=== PATIENT | male | born 1945 | race Caucasian/White ===

== ENCOUNTER → 2021-05-24 10:02 | Outpatient (CLI) | payer MEDICARE, SELFPAY ==
--- NOTE | ~2021-05-24 | XR_ITS ---
EXAMINATION: XR shoulder LT min 2V DATE: 05/24/2021 10:30 INDICATION: Left shoulder pain. TECHNIQUE: 4 views of left shoulder were obtained. COMPARISON: None. FINDINGS: Bone alignment is normal. No fracture. Glenohumeral joint is normal. There is severe acromi oclavicular joint osteoarthritis. IMPRESSION: 1. Severe acromioclavicular joint osteoarthritis. Reviewed, dictated and finalized at location A.
== END ==
PROVIDERS: PCP Family Medicine; Visit Provider Physician Assistant
DX: M19.012 Primary osteoarthritis, left shoulder (principal)
CPT/HCPCS: 73030

== ENCOUNTER 2021-07-10 09:27 | Outpatient (CLI) | payer MEDICARE, SELFPAY ==
--- NOTE | ~2021-07-10 | XR_ITS ---
EXAMINATION: XR ribs RT 2V w CXR 2V INDICATION: Pleurodynia, right chest pain TECHNIQUE: Frontal and lateral views of the chest and 3 views of the right ribs were obtained. COMPARISON: None. FINDINGS: A calcified nodule of the right upper lobe is consistent with old granulomatous disease. Th e lungs are free of acute opacities. There is no pleural effusion or pneumothorax. The cardiomediasti nal silhouette is normal. There is moderate thoracic spondylosis. There are questionable nondisplaced fractures at the anterior aspects of the right ninth and 10th ribs. IMPRESSION: 1. Possible nondisplaced anterior right rib fractures. No acute cardiopulmonary abnormality. Reviewed, dictated and finalized at location A. 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
== END 2021-07-10 09:28 | disposition home or self-care (01) ==
LOC: ANHIMG 09:32
PROVIDERS: PCP Family Medicine; Visit Provider Family Medicine
DX: R07.81 Pleurodynia (principal)
CPT/HCPCS: 71046; 71100

== ENCOUNTER 2021-09-11 01:05 | Day surgery (SDC) | payer MEDICARE, SELFPAY ==
[2021-09-03 10:10] VITALS: BMI 24.3
[2021-09-11 10:08] VITALS: BP 126/67; PULSE 62; RESP 18; TEMP 35.7; O2SAT 99
--- NOTE | 2021-09-11 10:14 | WPDANESEPPF ---
Anes - Initial Pre Proc Eval Procedure: Operation Date: 09/11/21 11:15 Proposed Procedures p Screening Colonoscopy - Arvind Marie MD Date/Time: 09/11/21 10:14 Surgeon: Arvind Marie MD Pre Op Diagnosis: neoplasm screening Patient Data Age: 76 Gender: M Height: 1.78 m Weight: 75.9 kg Last Vital Signs Temp 96.3 F L 09/11/21 10:08 Pulse 62 09/11/21 10:08 Resp 18 09/11/21 10:08 BP 126/67 09/11/21 10:08 Pulse Ox 99 09/11/21 10:08 Allergies Allergy/AdvReac Type Severity Reaction Status Date / Time lisinopril Allergy Intermediate cough Verified 09/11/21 10:07 Home Medications Medication Instructions Recorded Confirmed Type aspirin 81 mg tablet,delayed 81 mg PO DAILY 07/29/19 09/03/21 History release atorvastatin 10 mg tablet See Rx Instructions .ROUTE 08/17/21 09/03/21 Rx .COMPLEX #90 tablet losartan 50 mg tablet See Rx Instructions .ROUTE 08/17/21 09/03/21 Rx .COMPLEX #90 tablet paroxetine HCl 10 mg tablet See Rx Instructions .ROUTE 08/17/21 09/03/21 Rx .COMPLEX #90 tablet Beet Root Complex 1 cap PO DAILY 09/03/21 09/03/21 History Vitamin D2 1 cap PO DAILY 09/03/21 09/03/21 History ascorbate calcium (vitamin C) 500 mg PO BID 09/03/21 09/03/21 History coenzyme Q10 [Co Q-10] 100 mg PO DAILY 09/03/21 09/03/21 History multivitamin,mu-kudn-Uc-FA-min 1 tablet PO DAILY 09/03/21 09/03/21 History [Multivitamin And Mineral] omega-3 fatty acids-vitamin E 1 cap PO DAILY 09/03/21 09/03/21 History [Fish Oil] vitamin B complex 1 cap PO DAILY 09/03/21 09/03/21 History Patient hx anesthesia problems: none Family hx anesthesia problems: none Results Review: All pre-operative results and documents have been reviewed as part of the pre-operative evaluation. [facility]LY [facility] Past Medical History Medical History Hepatitis C antibody test negative (~07/2017) Onychomycosis Osteoarthritis of right knee Torn medial meniscus (~2015) Family History Family History Sibling Family history of sudden , Onset Age: 52 Other Family history of elevated blood lipids Hypertension Social History Social History Smoking status: Never smoker Alcohol intake: current Drinks per week: 7 Alcohol use details: BEERS Substance use: never Substance use type: does not use Living arrangements: with family Spiritual care concerns: No Anes - Eval Final PreProcedure Day of Procedure 09/11/21 10:14 Patient weight: normal Heart: regular rate and rhythm Lungs: clear to auscultation Airway: Mallampati scale class II Neurological: alert and oriented Last oral intake: >/= 8 hours ASA classification: II Emergent: no Anesthetic plan: proceed Anesthesia type and monitoring: general GIVS and standard monitoring Results Review: All pre-operative results and documents have been reviewed as part of the pre-operative evaluation. Informed Consent: The patient's anesthetic plan and its attendant risks and benefits were discussed with the patient/family/POA. Questions were solicited and answers provided to the satisfaction of the patient/family/POA.
--- NOTE | 2021-09-11 10:21 | WPDGICN ---
Assessment and Plan Assessment and plan (1) Encounter for screening colonoscopy: Code(s): Z12.11 - Encounter for screening for malignant neoplasm of colon Status: Acute Assessment and Plan: Patient presents for screening colonoscopy. He appears to be at average risk for colon polyps. GI Consult Note Consult date/time: 09/11/21 10:21 HPI: Luca Cleveland is a 76 year old male Presents for screening colonoscopy. Patient reports his current weight appetite and bowel movements are normal. He denies abdominal pain. He has had no bleeding. Last colonoscopy 10 years ago was unremarkable. Family history is noncontributory. Review of Systems Review of Systems: All systems reviewed & are unremarkable except as noted in HPI and below PMFSH Past Medical History Medical History Hepatitis C antibody test negative (~07/2017) Onychomycosis Osteoarthritis of right knee Torn medial meniscus (~2015) Family History Family History Sibling Family history of sudden , Onset Age: 52 Other Family history of elevated blood lipids Hypertension Social History Social History Smoking status: Never smoker Alcohol intake: current Drinks per week: 7 Alcohol use details: CHANO Substance use: never Substance use type: does not use Living arrangements: with family Spiritual care concerns: No Meds Home Medications and Allergies Home Medications Medication Instructions Recorded Confirmed Type aspirin 81 mg tablet,delayed 81 mg PO DAILY 07/29/19 09/03/21 History release atorvastatin 10 mg tablet See Rx Instructions .ROUTE 08/17/21 09/03/21 Rx .COMPLEX #90 tablet losartan 50 mg tablet See Rx Instructions .ROUTE 08/17/21 09/03/21 Rx .COMPLEX #90 tablet paroxetine HCl 10 mg tablet See Rx Instructions .ROUTE 08/17/21 09/03/21 Rx .COMPLEX #90 tablet Beet Root Complex 1 cap PO DAILY 09/03/21 09/03/21 History Vitamin D2 1 cap PO DAILY 09/03/21 09/03/21 History ascorbate calcium (vitamin C) 500 mg PO BID 09/03/21 09/03/21 History coenzyme Q10 [Co Q-10] 100 mg PO DAILY 09/03/21 09/03/21 History multivitamin,uu-wuxk-Cb-FA-min 1 tablet PO DAILY 09/03/21 09/03/21 History [Multivitamin And Mineral] omega-3 fatty acids-vitamin E 1 cap PO DAILY 09/03/21 09/03/21 History [Fish Oil] vitamin B complex 1 cap PO DAILY 09/03/21 09/03/21 History Allergies Allergy/AdvReac Type Severity Reaction Status Date / Time lisinopril Allergy Intermediate cough Verified 09/11/21 10:07 Vital Signs Vital Signs - 24 hr 09/11/21 10:08 Temperature 96.3 F L Pulse Rate 62 Respiratory Rate 18 Blood Pressure 126/67 Pulse Oximetry 99 Exam Narrative: Physical exam reveals patient be alert. Vital signs stable. HEENT exam is unremarkable. Patient is anicteric. Lungs are clear to auscultation and percussion. Heart is without murmur or extra sounds. Abdominal exam bowel sounds are present soft nontender with no organomegaly. Digital external rectal exam is normal.
[2021-09-11] MEDS: LACTATED RINGERS 1,000 ML 150 ML IV CONT (10:22)
[2021-09-11 11:17] VITALS: BP 98/54; PULSE 61; RESP 18; O2SAT 95
[2021-09-11 11:27] VITALS: BP 104/66; PULSE 59; RESP 17; O2SAT 99
[2021-09-11 11:38] VITALS: BP 136/79; PULSE 58; RESP 18; O2SAT 98
== END 2021-09-11 12:05 | disposition home or self-care (01) ==
PROVIDERS: PCP Family Medicine; Visit Provider Internal Medicine Gastroenterology
PROC: 0DJD8ZZ Inspection of Lower Intestinal Tract, Via Natural or Artificial Opening Endoscopic (ICD-10-PCS; CPT 45378; principal; 2021-09-11 11:15)
DX: Z12.11 Encounter for screening for malignant neoplasm of colon (principal); D12.8 Benign neoplasm of rectum; K64.8 Other hemorrhoids; K57.30 Diverticulosis of large intestine without perforation or abscess without bleeding; B35.1 Tinea unguium; Z79.82 Long term (current) use of aspirin
CPT/HCPCS: 45385; 88305; J2704; J7120

== ENCOUNTER 2022-07-09 10:11 | Emergency (ER) | payer MEDICARE, SELFPAY ==
[2022-07-09 10:56] VITALS: BP 142/73; PULSE 60; RESP 18; TEMP 36.1; O2SAT 98
--- NOTE | 2022-07-09 11:30 | ED.URI ---
HPI - URI/Sore Throat General Chief Complaint: Upper Respiratory Infection Stated Complaint: throat irritation,cough Time Seen by Provider: 07/09/22 11:30 Source: patient Mode of arrival: ambulatory Limitations: no limitations History of Present Illness HPI Narrative: 76-year-old male presents with complaint of nasal congestion, postnasal drainage, cough, sinus headaches for 2 weeks. Reports yesterday he could not stop coughing due to tickle in his throat. I have told him he needed to be seen for sinus infection. taking NyQuil at night. Not taking any other medications to treat symptoms. All systems reviewed and negative except as noted above. Related Data Home Medications Medication Instructions Recorded Confirmed aspirin 81 mg tablet,delayed 81 mg PO DAILY 07/29/19 07/09/22 release Beet Root Complex 1 cap PO DAILY 09/03/21 07/09/22 Vitamin D2 1 cap PO DAILY 09/03/21 07/09/22 ascorbate calcium (vitamin C) 500 500 mg PO BID 09/03/21 07/09/22 mg capsule coenzyme Q10 100 mg capsule (Co 100 mg PO DAILY 09/03/21 07/09/22 Q-10) multivitamin,ex-gerf-Bt-FA-min 1 tablet PO DAILY 09/03/21 07/09/22 omega-3 fatty acids-vitamin E 1 cap PO DAILY 09/03/21 07/09/22 1,000 mg capsule vitamin B complex 1 cap PO DAILY 09/03/21 07/09/22 Allergies Allergy/AdvReac Type Severity Reaction Status Date / Time lisinopril AdvReac Intermediate cough Verified 07/09/22 10:54 Review of Systems Review of Systems: CONSTITUTIONAL: Denies fever, chills, or sweats. EYES: Denies visual changes, redness, or discharge. ENT: Reports rhinorrhea, congestion, sore throat, sinus headache. Denies otalgia. CARDIOVASCULAR: Denies chest pain, palpitations, or edema. RESPIRATORY: Denies cough or dyspnea. GASTROINTESTINAL: Denies abdominal pain, nausea, vomiting, or diarrhea. GENITOURINARY: Denies dysuria or hematuria. SKIN: Denies rash or itching. MUSCULOSKELETAL: Denies back pain, joint pain, or myalgia. NEUROLOGIC: Denies headache, numbness, or weakness. PSYCHIATRIC: Denies anxiety or depression. All other systems reviewed are negative, except as documented in HPI. PMFSH Past Medical History Medical History Abnormal electrocardiogram during exercise stress test Hepatitis C antibody test negative (~07/2017) Old tear of medial meniscus of right knee Onychomycosis Osteoarthritis of right knee Torn medial meniscus (~2015) Surgical History Surgical History History of knee surgery Family History Family History Sibling Family history of sudden , Onset Age: 52 Other Family history of elevated blood lipids Hypertension Social History Social History Smoking status: Never smoker Alcohol intake: current Drinks per week: 7 Alcohol use details: BEERS Substance use: never Substance use type: does not use Lack of Transportation: No Lack of Food: Never True Current Housing: I Have Housing Concerned About Future Housing: No Difficulty Paying Gas/Electric Bills: No Difficulty Paying for Meds: No Currently Unemployed: No Education: Master's Degree or Higher Difficulty w/ Childcare or Family Care: No Spiritual care concerns: No Comments At time of signature, agree with nursing past medical, surgical, social and family history. There is no relevant family history pertinent to the presenting complaint. Exam Narrative: GENERAL: This is a well-nourished, well-developed patient, in no apparent distress. HEAD: normocephalic, atraumatic. EYES: PERRL. Sclera clear/white. Vision is grossly intact. EARS: External ears normal, auditory canals clear and without drainage, Mild fluid bilateral TMs without erythema. NOSE: External nose normal With clear nasal drainage, erythem
== END 2022-07-09 11:42 | disposition home or self-care (01) ==
PROVIDERS: Emergency Provider Nurse Practitioner Family; PCP Family Medicine
DX: J01.90 Acute sinusitis, unspecified (principal); M17.11 Unilateral primary osteoarthritis, right knee; Z79.82 Long term (current) use of aspirin
CPT/HCPCS: 99213; G0463

== ENCOUNTER 2022-08-01 16:51 | Emergency (ER) | payer MEDICARE, SELFPAY ==
--- NOTE | ~2022-08-01 | XR_ITS ---
EXAMINATION: XR chest 1V portable DATE: 08/01/2022 17:31 INDICATION: Hypertension. Headache. TECHNIQUE: A single frontal view of the chest was obtained on 2 radiographs. COMPARISON: Chest radiograph 07/10/2021 FINDINGS: A calcified right lung nodule and calcified right hilar lymph nodes are consistent with old granulomatous disease. No pleural effusion or pneumothorax. The heart size is normal. IMPRESSION: 1. No acute cardiopulmonary disease. Reviewed, dictated and finalized at location A. 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
--- NOTE | ~2022-08-01 | CT_ITS ---
EXAMINATION: CT brain wo con DATE: 08/01/2022 17:13 INDICATION: Speech deficit. Headache. TECHNIQUE: Computed tomography (CT) of the head was performed without intravenous contrast. The mA wa s adjusted according to patient size. Iterative reconstruction technique was employed. The dose-lengt h product was 605.33 mGy-cm. COMPARISON: None FINDINGS: There is an old lacunar infarct in right caudate nucleus. There is no intracranial hemorrha ge, acute infarction, or abnormal intracranial mass lesion. The ventricles are normal in size. The or bits are normal. There is mild mucosal thickening in the paranasal sinuses. The mastoid air cells are normal. IMPRESSION: 1. Old lacunar infarct in right caudate nucleus. I called this result to Dr. Judge. Reviewed, dictated and finalized at location A. 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 Old lacunar infarct in right caudate nucleus. I called this result to Dr. Reilly ching
[2022-08-01 17:03] VITALS: BP 171/96; PULSE 59; RESP 16; TEMP 37; O2SAT 100
--- NOTE | 2022-08-01 17:06 | ECG_ITS ---
Measurements Intervals Wisner Rate: 59 P: -7 AK: 190 QRS: -11 QRSD: 112 T: 50 QT: 397 QTc: 396 Interpretive Statements SINUS BRADYCARDIA MODERATE INTRAVENTRICULAR CONDUCTION DELAY [110+ ms QRS DURATION] ABNORMAL ECG NO PREVIOUS ECG AVAILABLE FOR COMPARISON Electronically Signed On 08-02-2022 14:43:57 HOUSE COORDINATOR by Israel Haines M.D.
--- NOTE | 2022-08-01 17:09 | PC.NURSE ---
Pts blood sugar was [address]
[2022-08-01 17:10] LABS: Glucose Point of Care 124 mg/dl (65-105)
--- NOTE | 2022-08-01 17:11 | PC.NURSE ---
Pt to CT scan following stroke stop in ED, at bedside.
[2022-08-01 17:22] VITALS: BP 175/94; PULSE 60; RESP 17; TEMP 37; O2SAT 100
[2022-08-01 17:23] VITALS: PULSE 59
[2022-08-01 17:34] LABS: Basophils Percent Auto 0.3 % (0.2-1.2); Eosinophils Absolute Auto 0.1 K/mm3 (0-0.3); Eosinophils Percent Auto 1.5 % (0-4.4); Hematocrit 43.2 % (42.0-52.0); Hemoglobin 14.5 g/dL (14.0-18.0); Immature Granulocyte Absolute 0.03 K/mm3 (0.00-0.031); Immature Granulocyte Percent A 0.5 % (0-0.5); Lymphocytes Absolute Auto 1.42 K/mm3 (0.9-3.2); Lymphocytes Percent Auto 21.7 % (18.3-44.2); Mean Corpuscular HGB Conc 33.6 g/dl (32-36); Mean Corpuscular Hemoglobin 32.5 pg (26-34); Mean Corpuscular Volume 96.9 fl (80-100); Mean Platelet Volume 9.9 fl (7.4-10.4); Monocytes Absolute Auto 0.6 K/mm3 (0.1-0.6); Monocytes Percent Auto 9.6 % (2.6-8.5); Neutrophils Absolute Auto 4.3 K/mm3 (1.3-6.7); Neutrophils Percent Auto 66.4 % (45.5-73.1); Platelet Count Result 156 k/mm3 (150-375); Red Blood Count 4.46 M/mm3 (4.6-6.20); Red Cell Distribution Width 12.6 % (11.5-14.5); White Blood Count 6.5 K/mm3 (4.5-10.0)
[2022-08-01 17:44] LABS: INR 1.1; Partial Thromboplastin Time 25.3 SECONDS (22.3-36.8); Prothrombin Time 13.4 Seconds (11.1-14.7)
[2022-08-01 17:46] LABS: Alanine Aminotransferase 35 U/L (6-50); Albumin Level 4.3 g/dL (3.5-5.1); Alkaline Phosphatase 81 U/L (38-126); Anion Gap 5 mmol/L (8-16); Aspartate Amino Transferase 36 U/L (17-59); Bilirubin,Total 0.5 mg/dL (0.2-1.3); Blood Urea Nitrogen 14 mg/dL (9-20); Calcium 8.9 mg/dL (8.4-10.2); Carbon Dioxide 30 mmol/L (22-30); Chloride 100 mmol/L (98-107); Estimated CRCL calculation 64 ml/min; Estimated Glomerular Filt Rate > 60; Glucose 114 mg/dL (65-110); Sodium 135 mmol/L (137-145)
[2022-08-01 18:04] LABS: Troponin I < 0.012 ng/mL (0.000-0.034)
[2022-08-01 18:11] LABS: Influenza A QL RT-PCR Negative (Negative); Influenza B QL RT-PCR Negative (Negative); RSV RNA, RT-PCR Negative (Negative); SARS-CoV-2 RNA PCR Negative
[2022-08-01 18:20] VITALS: PULSE 61; RESP 18; O2SAT 98
--- NOTE | 2022-08-01 18:38 | ED.GENADULT ---
HPI - General Adult General Chief complaint: Neuro Symptoms/Deficit Stated complaint: SILEVRIO,HESITENT SPEECH,MEMORY ISSUES TODAY Time Seen by Provider: 08/01/22 17:10 History of Present Illness HPI narrative: this is a 77-year-old male presenting to the ED with a brief period of confusion. Patient was feeling well up until approximately noon today when he said he was having some trouble remembering things. He then took a nap and when he woke up his thought that he was more confused than normal. She is a nurse practitioner and then performed a thorough neurologic exam that had no findings other than he was unable to count backwards from 100 by sevens. There are no focal findings. The patient himself is complaining of a headache, nausea and fatigue. He is vaccinated against COVID and flu. He denies sick contacts at home. He denies chest pain, difficulty breathing, abdominal pain, urinary symptoms or diarrhea. The patient was originally triaged as a stroke alert. Symptoms are not consistent with stroke. Related Data Home Medications Medication Instructions Recorded Confirmed aspirin 81 mg tablet,delayed 81 mg PO DAILY 07/29/19 07/16/22 release Beet Root Complex 1 cap PO DAILY 09/03/21 07/16/22 Vitamin D2 1 cap PO DAILY 09/03/21 07/16/22 ascorbate calcium (vitamin C) 500 500 mg PO BID 09/03/21 07/16/22 mg capsule coenzyme Q10 100 mg capsule (Co 100 mg PO DAILY 09/03/21 07/16/22 Q-10) multivitamin,cx-jikz-Wq-FA-min 1 tablet PO DAILY 09/03/21 07/16/22 omega-3 fatty acids-vitamin E 1 cap PO DAILY 09/03/21 07/16/22 1,000 mg capsule vitamin B complex 1 cap PO DAILY 09/03/21 07/16/22 Allergies Allergy/AdvReac Type Severity Reaction Status Date / Time lisinopril AdvReac Intermediate cough Verified 08/01/22 17:09 Review of Systems Review of Systems: CONSTITUTIONAL: Denies night sweats. EYES: No eye pain ENT: Denies rhinorrhea CARDIOVASCULAR: Denies palpitations RESPIRATORY: Denies hemoptysis GASTROINTESTINAL: Denies hematemesis GENITOURINARY: Denies hematuria. SKIN: Denies rash MUSCULOSKELETAL: Denies myalgia. NEUROLOGIC: Denies weakness. PSYCHIATRIC: Denies delusions PMFSH Past Medical History Medical History Abnormal electrocardiogram during exercise stress test Hepatitis C antibody test negative (~07/2017) Old tear of medial meniscus of right knee Onychomycosis Osteoarthritis of right knee Torn medial meniscus (~2015) Surgical History Surgical History History of knee surgery Family History Family History Sibling Family history of sudden , Onset Age: 52 Other Family history of elevated blood lipids Hypertension Social History Social History Smoking status: Never smoker Alcohol intake: current Drinks per week: 7 Alcohol use details: BEERS Substance use: never Substance use type: does not use Lack of Transportation: No Lack of Food: Never True Current Housing: I Have Housing Concerned About Future Housing: No Difficulty Paying Gas/Electric Bills: No Difficulty Paying for Meds: No Currently Unemployed: No Education: Master's Degree or Higher Difficulty w/ Childcare or Family Care: No Spiritual care concerns: No Exam Narrative: APPEARANCE: No apparent distress. Head: atraumatic. tympanic membranes are non visualized due to cerumen impaction EYES: EOMI, NOSE: Atraumatic NECK: Trachea midline RESPIRATORY: No increased rate of breathing, clear to auscultation in all parmar CARDIOVASCULAR: RRR, no peripheral edema ABDOMINAL: Non-distended, soft tender no guarding or rebound MUSCULOSKELETAl: No obvious deformities NEURO: Alert. Cranial nerves 2-12 grossly intact. Sensation light touch, motor function cerebellar functio
[2022-08-01] MEDS: IBUPROFEN 400 MG TABLET 800 MG PO (18:49)
[2022-08-01 18:51] VITALS: PULSE 71; RESP 18; O2SAT 100
== END 2022-08-01 19:17 | disposition home or self-care (01) ==
PROVIDERS: Emergency Provider Emergency Medicine; PCP Family Medicine
DX: B34.9 Viral infection, unspecified (principal); Z20.822 Contact with and (suspected) exposure to COVID-19; R53.83 Other fatigue; M17.11 Unilateral primary osteoarthritis, right knee
CPT/HCPCS: 36415; 70450; 71045; 80053; 82948; 84484; 85025; 85610; 85730; 87637; 93005; 99284; A9270

== ENCOUNTER 2022-11-19 11:22 | Outpatient (CLI) | payer MEDICARE, SELFPAY ==
[2022-11-23 06:10] LABS: Lyme Disease Ab (IgM), Blot Negative (Negative); Lyme Disease Ab(IgG), Blot Negative (Negative)
== END 2022-11-19 11:23 | disposition home or self-care (01) ==
LOC: ANHGOSHLAB 11:23
PROVIDERS: PCP Family Medicine; Visit Provider Nurse Practitioner Family
DX: T14.8XXA Other injury of unspecified body region, initial encounter (principal); W57.XXXA Bitten or stung by nonvenomous insect and other nonvenomous arthropods, initial encounter
CPT/HCPCS: 36415; 86617; 86757

== ENCOUNTER 2024-02-05 13:58 | Emergency (ER) | payer MEDICARE, SELFPAY ==
--- NOTE | 2024-02-05 14:06 | ED.URI ---
HPI - URI/Sore Throat General Chief Complaint: Upper Respiratory Infection Stated Complaint: cold symptoms Time Seen by Provider: 02/05/24 14:13 Source: patient, RN notes reviewed and old records reviewed Mode of arrival: ambulatory Limitations: no limitations History of Present Illness HPI Narrative: 78-year-old male presents to the [facility] with sinus congestion ear pain that started slightly on Friday, became worse Friday and Friday. Reports that he felt very lethargic on Friday and Friday, reports a fever of 102. Denies any chest pain, shortness of breath or cough. Related Data Home Medications Medication Instructions Recorded Confirmed aspirin 81 mg tablet,delayed 81 mg PO DAILY 07/29/19 02/05/24 release Beet Root Complex 1 cap PO DAILY 09/03/21 02/05/24 multivitamin,kp-ahir-Lq-FA-min 1 tablet PO DAILY 09/03/21 02/05/24 vitamin B complex 1 cap PO DAILY 09/03/21 10/13/23 metformin 1,000 mg tablet 1,000 mg PO DAILY 10/13/23 02/05/24 Allergies Allergy/AdvReac Type Severity Reaction Status Date / Time lisinopril AdvReac Intermediate cough Verified 10/13/23 13:08 Review of Systems Review of Systems: All systems reviewed & are unremarkable except as noted in HPI and below Constitutional: Constitutional: Reports no additional constitutional complaints Eyes: Eyes: Reports no additional eye complaints ENT: Reports as per HPI Cardiovascular: Cardiovascular: Reports no additional cardiovascular complaints, Denies chest pain and Denies dyspnea Respiratory: Respiratory: Reports no additional respiratory complaints, Denies chest congestion, Denies cough and Denies dyspnea Gastrointestinal: Gastrointestinal: Reports no additional gastrointestinal complaints, Denies abdominal pain, Denies nausea and Denies vomiting Musculoskeletal: Musculoskeletal: Reports no additional musculoskeletal complaints Integumentary/Breasts: Skin/Breast: Reports system reviewed and no additional complaints, except as docu Neurologic: Reports system reviewed and no additional complaints, except as documented Psychiatric: Psychiatric: Reports no additional psychiatric complaints Allergic/Immunologic: Allergic/Immunologic: Reports no additional allergic/immunologic complaints [facility] Past Medical History Medical History Abnormal electrocardiogram during exercise stress test Hepatitis C antibody test negative (~07/2017) Lacunar infarction Old tear of medial meniscus of right knee Onychomycosis Osteoarthritis of right knee Torn medial meniscus (~2016) Surgical History Surgical History History of knee surgery Family History Family History Sibling Family history of sudden , Onset Age: 52 Other Family history of elevated blood lipids Hypertension Social History Social History Smoking status: Never smoker Alcohol intake: current Drinks per week: 7 Alcohol use details: BEERS Substance use: never Substance use type: does not use Lack of Transportation: No Lack of Food: Never True Current Housing: I Have Housing Concerned About Future Housing: No Difficulty Paying Gas/Electric Bills: No Difficulty Paying for Meds: No Currently Unemployed: No Education: Master's Degree or Higher Difficulty w/ Childcare or Family Care: No Living arrangements: with family Spiritual care concerns: No Comments At the time of my signature, I reviewed and agree with the nursing past medical, surgical, social, and family history. There is no relevant family history pertinent to the patient complaint. Exam Const: General: cooperative, healthy appearing, comfortable, no acute distress, well developed, alert and well nourished Nutritional Appearance: well nourished Orientation/c
[2024-02-05 14:07] VITALS: BP 118/63; PULSE 63; RESP 16; TEMP 36.6; O2SAT 97
[2024-02-05 16:36] LABS: EDINFLUASCREEN Negative; EDINFLUBSCREEN Negative
== END 2024-02-05 14:26 | disposition home or self-care (01) ==
PROVIDERS: Emergency Provider Nurse Practitioner; PCP Family Medicine
DX: U07.1 COVID-19 (principal); Z79.82 Long term (current) use of aspirin; M17.11 Unilateral primary osteoarthritis, right knee; Z86.73 Personal history of transient ischemic attack (TIA), and cerebral infarction without residual deficits
CPT/HCPCS: 87426; 87804; 99213; G0463

== ENCOUNTER 2024-07-13 11:38 | Inpatient (IN) | payer MEDICARE, SELFPAY ==
[2024-07-13] VITALS (55 sets, daily range): BP systolic 90–143; BP diastolic 42–76; PULSE 48–63; RESP 10–25; TEMP 36.4–36.7; O2SAT 95–100; BMI 25.1
--- NOTE | 2024-07-13 | ECHO_ITS ---
Patient Info Name: Luca Cleveland Age: 79 years : 1945 Gender: Male Ht: 69 in Wt: 170 lbs BSA: 1.95 m2 HR: 50 bpm BP: 135 / 68 mmHg Technical Quality: Poor Exam Date: 07/13/2024 3:35 PM Exam Location: Echo Lab Patient Status: Inpatient Admit Date: 07/13/2024 Staff Ordering Physician: Jamie Russ MD (min/hal) Road Grader: Carl Phillip RDCS Attending Provider: Vidal Silva MD Referring Physician: Jeb INIGUEZ; Exam Type: CA echo doppler color flow Study Info Indications - NSTEMI Complete two-dimensional, color flow and Doppler transthoracic echocardiogram is performed with contrast to opacify the left ventricle and to improve the deliniation of the left ventricle endocardial borders. Contrast/Agitated Saline Contrast/Ag. Saline: Definity Amount: 2.00 ml Existing IV Access: Yes Reason for Poor Study: poor echocardiographic windows Summary 1. Left ventricular chamber dimension is normal. 2. There is mildly increased left ventricular wall thickness. 3. Left ventricular systolic function is mildly reduced with an ejection fraction by Biplane Method of Discs of 50 %. 4. Mild hypokinesis seen in the mid-distal ant-septal, ant-lat segments. 5. There is moderate aortic valve sclerosis. 6. There is mild aortic valve stenosis with a peak velocity of 175 cm/s, mean gradient of 8 mmHg, and aortic valve area of 1.5 cm2. 7. There is no aortic valve regurgitation. 8. Right ventricular chamber dimension is normal. 9. Right ventricular systolic function is normal. 10. There is mild mitral valve regurgitation. Left Ventricle Left ventricular chamber dimension is normal. There is mildly increased left ventricular wall thickness. Left ventricular systolic function is mildly reduced with an ejection fraction by Biplane Method of Discs of 50 %. Mild hypokinesis seen in the mid-distal ant-septal, ant-lat segments. Right Ventricle Right ventricular chamber dimension is normal. Right ventricular systolic function is normal. Left Atria Left atrial chamber dimension is mildly enlarged. Right Atria Right atrial chamber dimension is normal. Aortic Valve There is moderate aortic valve sclerosis. There is mild aortic valve stenosis with a peak velocity of 175 cm/s, mean gradient of 8 mmHg, and aortic valve area of 1.5 cm2. There is no aortic valve regurgitation. Pulmonic Valve There is mild pulmonic regurgitation. Mitral Valve There is mild mitral valve regurgitation. Tricuspid Valve There is mild tricuspid valve regurgitation. Inferior Vena Cava Inferior vena cava is not well visualized. Aorta The aortic root size at the sinus of Valsalva is normal. The prox ascending aorta size is normal. The ascending aorta arch size is normal. Left Ventricular Outflow Tract Name Value Normal LVOT 2D LVOT Diameter 2.0 cm LVOT Doppler LVOT Peak Gradient 3 mmHg LVOT Mean Gradient 2 mmHg LVOT VTI 22 cm LVOT VTI/AV VTI Ratio 0.5 LVOT Stroke Volume 67 ml LVOT CO 3.6 l/min LVOT CI 1.8 l/min/m2 Pulmonic Valve Name Value Normal RVOT Doppler RVOT Peak Gradient 1 mmHg PV Doppler PV Peak Gradient 2 mmHg Mitral Valve Name Value Normal MV Doppler MV Peak Gradient 4 mmHg MV Mean Gradient 1 mmHg MV Decel Lares 458 cm/s2 MV PHT 50 ms MV Area (PHT) 4.4 cm2 4.0-5.0 MV Area (Cont Eq VTI) 2.0 cm2 MV Diastolic Function MV E Peak Velocity 79 cm/s MV A Peak Velocity 69 cm/s MV E/A 1.1 MV Decel Time 172 ms MV Annular TDI MV E/e' (Septal) 9.0 <=8.0 MV E/e' (Lateral) 8.0 <=8.0 MV E/e' (Average) 8.5 Tricuspid Valve Name Value Normal TV Regurgitation Doppler TR Peak Velocity 266 cm/s TR Peak Gradient 25 mmHg Estimated PAP/RSVP RA Pressure 10 mmHg <=5 PA Systolic Pressure 38 mmHg <36 RV Systolic Pressure 38 mmHg <36 Aorta Name Value Normal Ascending Aorta Ao Root Diameter (MM) 3.3 cm Ao Root Diam Index (MM) 1.7 cm/m2 Aortic Valve Name Value Normal AV Doppler AV Peak Velocity 175 cm/s AV Peak Gradient 12 mmHg AV Mean Gradient 8 mmHg AV VTI 44 cm AV Area (Cont Eq VTI) 1.5 cm2 >=3.0 AV Area (Cont Eq Mauricio) 1.6 cm2 AV Regurgitation 2D LVOT Area 3.0 cm2 Ventricles Name Value Normal LV Dimensions 2D/MM IVS Diastolic Thickness (2D) 1.4 cm 0.6-1.0 LVID Diastole (2D) 3.7 cm 4.2-5.8 LVIW Diastolic Thickness (2D) 1.0 cm 0.6-1.0 LVID Systole (2D) 2.7 cm 2.5-4.0 LVOT Diameter 2.0 cm LV Mass (2D Cubed) 155.27 g 88.00-224.00 LV Mass Index (2D Cubed) 80 g/m2 49-115 Relative Wall Thickness (2D) 0.54 LV Fractional Shortening/Ejection Fraction 2D/MM LV Fractional Shortening (2D) 29 % 25-43 LV EF (2D Teicholz) 56 % 52-72 LV Diastolic Volume (4C MOD) 158 ml LV EF (4C MOD) 48 % LV Diastolic Volume (2C MOD) 143 ml LV EF (2C MOD) 51 % LV Diastolic Volume (BP MOD) 154 ml 62-150 LV Diastolic Volume Index (BP MOD) 79 ml/m2 34-74 LV Systolic Volume (BP MOD) 77 ml 21-61 LV Systolic Volume Index (BP MOD) 40 ml/m2 11-31 LV EF (BP MOD) 50 % 52-72 LV Diastolic Length (4C) 9.0 cm LV Systolic Length (4C) 8.1 cm LV Stroke Volume (4C MOD) 76 ml Atria Name Value Normal LA Dimensions LA Dimension (MM) 4.5 cm 3.0-4.1 LA Volume (4C A-L) 60 ml LA Volume (BP A-L) 71 ml RA Dimensions RA Area (4C) 17.0 cm2 <=18.0 Report Signatures
--- NOTE | ~2024-07-13 | XR_ITS ---
XR chest 2V Ordering provider: Loly Kaye MD History: 78 years Male with . chest pain, CHEST PRESSURE, INDIGESTION . Comparison: August 01, 2022 FINDINGS: MEDIASTINUM: The cardiac silhouette is not enlarged. LUNGS: No infiltrates, effusions or pneumothorax. OTHER: No free air under the diaphragm. IMPRESSION: No acute cardiopulmonary pathology. Reviewed, dictated and finalized at location A. TED CIRCUIT DESIGNER
--- NOTE | 2024-07-13 11:42 | ECG_ITS ---
Test Date: 2024-07-13 11:49:53 Measurements Intervals [place] Rate: 49 P: 46 MI: 208 QRS: -15 QRSD: 102 T: 92 QT: 425 QTc: 386 Interpretive Statements SINUS BRADYCARDIA NONSPECIFIC ST & T-WAVE ABNORMALITY No previous ECG available for comparison Electronically Signed On 07-13-2024 15:01:14 POWER MULE OPERATOR by Jamie Russ M.D.
[2024-07-13 12:05] LABS: Basophils Percent Auto 0.4 % (0.2-1.2); Eosinophils Absolute Auto 0.2 K/mm3 (0-0.3); Hematocrit 38.7 % (42.0-52.0); Hemoglobin 12.9 g/dL (14.0-18.0); Immature Granulocyte Absolute 0.02 K/mm3 (0.00-0.031); Immature Granulocyte Percent A 0.4 % (0-0.5); Lymphocytes Absolute Auto 1.39 K/mm3 (0.9-3.2); Lymphocytes Percent Auto 26.2 % (18.3-44.2); Mean Corpuscular HGB Conc 33.3 g/dl (32-36); Mean Corpuscular Hemoglobin 32.8 pg (26-34); Mean Corpuscular Volume 98.5 fl (80-100); Mean Platelet Volume 10.2 fl (7.4-10.4); Monocytes Absolute Auto 0.6 K/mm3 (0.1-0.6); Monocytes Percent Auto 10.4 % (2.6-8.5); Neutrophils Absolute Auto 3.2 K/mm3 (1.3-6.7); Neutrophils Percent Auto 59.6 % (45.5-73.1); Platelet Count Result 142 k/mm3 (150-375); Red Blood Count 3.93 M/mm3 (4.6-6.20); Red Cell Distribution Width 12.5 % (11.5-14.5); White Blood Count 5.3 K/mm3 (4.5-10.0)
[2024-07-13 12:18] LABS: Alanine Aminotransferase 23 U/L (6-50); Albumin Level 3.8 g/dL (3.5-5.1); Alkaline Phosphatase 64 U/L (38-126); Anion Gap 1 mmol/L (4-12); Aspartate Amino Transferase 33 U/L (17-59); Bilirubin,Total 0.6 mg/dL (0.2-1.3); Blood Urea Nitrogen 21 mg/dL (9-20); Calcium 8.8 mg/dL (8.4-10.2); Carbon Dioxide 30 mmol/L (22-30); Chloride 108 mmol/L (98-107); Estimated CRCL calculation 56 ml/min; Estimated Glomerular Filt Rate > 60; Glucose 105 mg/dL (65-110); INR 1.2; Lipase 97 U/L (23-300); Potassium 4.2 mmol/L (3.4-5.0); Sodium 139 mmol/L (137-145)
[2024-07-13 12:19] LABS: Partial Thromboplastin Time 24.4 Seconds (22.3-36.8)
[2024-07-13 12:30] LABS: Troponin I 0.239 ng/mL (0.000-0.034)
[2024-07-13] MEDS: HEPARIN SODIUM 5,000 UNITS/ML VIAL 4000 UNITS IV PUSH ×2 (13:32→21:03)
[2024-07-13] MEDS: HEPARIN SOD/D5W 100 UNITS/ML 25,000 UNITS/250 ML BAG 9 UNITS IV CONT (13:33)
[2024-07-13] MEDS: ASPIRIN 81 MG CHEWABLE TABLET 324 MG PO (13:38)
--- NOTE | 2024-07-13 13:58 | ED_ITS ---
HPI - Chest Pain General Chief Complaint: Chest Pain Stated Complaint: chest pain Time Seen by Provider: 07/13/24 12:54 History of Present Illness HPI narrative: patient states he went to the gym as usual yesterday and was on the treadmill when he started having some chest pain and shortness of breath, he stopped, the symptoms stopped, he tried again and the symptoms restarted. Later that night he went to [employer] and then felt a sensation like he was going to collapse. he also felt like he was having lot of gas and burped several times. This morning he finally told his about the symptoms he was having and she brought him to the hospital. He has no chest pain currently. Has no cardiac history though he does see Dr Haines Related Data Home Medications ?Medication ?Instructions ?Recorded ?Confirmed ?Last Taken ?Type aspirin 81 mg tablet,delayed 81 mg PO DAILY 07/29/19 04/16/24 Unknown History release Beet Root Complex 1 cap PO DAILY 09/03/21 04/16/24 Unknown History multivitamin,zz-pnso-Kl-FA-min 1 tablet PO DAILY 09/03/21 04/16/24 Unknown History vitamin B complex 1 cap PO DAILY 09/03/21 04/16/24 Unknown History metformin 1,000 mg tablet 1,000 mg PO DAILY 10/13/23 04/16/24 Unknown History Allergies Allergy/AdvReac Type Severity Reaction Status Date / Time lisinopril AdvReac Intermediate cough Verified 04/16/24 13:20 Review of Systems 2 Review of Systems: All systems reviewed & are unremarkable except as noted in HPI and below PMFSH Past Medical History Medical History Abnormal electrocardiogram during exercise stress test Hepatitis C antibody test negative (~07/2017) Lacunar infarction Old tear of medial meniscus of right knee Onychomycosis Osteoarthritis of right knee Torn medial meniscus (~2015) Surgical History Surgical History History of knee surgery Family History Family History Sibling Family history of sudden , Onset Age: 52 Other Family history of elevated blood lipids Hypertension Social History Social History (Reviewed 04/16/24 @ 13:22 by ZACHERY Palm Smoking status: Never smoker Alcohol intake: current Drinks per week: 7 Alcohol use details: BEERS Substance use: never Substance use type: does not use Lack of Transportation: No Lack of Food: Never True Current Housing: I Have Housing Concerned About Future Housing: No Difficulty Paying Gas/Electric Bills: No Difficulty Paying for Meds: No Currently Unemployed: No Education: Master's Degree or Higher Difficulty w/ Childcare or Family Care: No Living arrangements: with family Spiritual care concerns: No Exam 2 Narrative: EXAMINATION OF ORGAN SYSTEMS/BODY AREAS: Constitutional: Vital signs per nursing GENERAL:[No acute distress, non-toxic appearing.] HEAD: Normal with no signs of head trauma. EYES: EOMI, conjunctiva normal ENT: Hearing grossly intact LUNGS: Nonlabored breathing. HEART: [Regular rate and rhythm] ABD: [Soft], [nontender to palpation] EXT: Normal range of motion SKIN: [No rashes or lesions.] NEURO: [Alert and oriented x 3. No gross focal sensory or strength deficits.] PSYCH: Normal affect Course Vital Signs Vital signs: Vital Signs Temperature 97.6 F 07/13/24 11:41 Pulse Rate 54 L 07/13/24 11:41 Respiratory Rate 16 07/13/24 11:41 Blood Pressure 126/53 L 07/13/24 11:41 Pulse Oximetry 100 07/13/24 11:41 Oxygen Delivery Room Air 07/13/24 11:41 Temperature 97.6 F 07/13/24 11:41 Pulse Rate 51 L 07/13/24 13:25 Respiratory Rate 19 07/13/24 13:25 Blood Pressure 139/65 07/13/24 13:25 Pulse Oximetry 100 07/13/24 13:25 Oxygen Delivery Room Air 07/13/24 13:25 MDM - Chest Pain MDM Narrative Medical decision making narrative: ED COURSE AND MEDICAL DECISION MAKINM presenting with exertional chest pain. Cardiac workup is initiated. EKG: Performed in triage and interpreted by me. Normal sinus rhythm. Rate [49]. Normal axis. PA normal. QRS duration normal. QTc normal. 7 very minimal elevation T AVR with very subtle ST depressions diffusely, not STEMI criteria however is slightly concerning for possible ischemia on my independent interpretation. Initial troponin also elevated at 0.239. Patient is denying any chest pain currently and he looks very well on exam, I do not feel he needs to go immediately to laboratory engineer at this time, however will given full-dose aspirin, start heparin drip, discussed case with airport utility worker, who advises NPO at midnight for possible procedure in the morning. discussed with hospitalist, and pt and who are agreeable with plan. Lab Data 07/13/24 11:56 07/13/24 11:56 Labs: Lab Results 07/13/24 Range/Units 11:56 WBC 5.3 (4.5-10.0) K/mm3 RBC 3.93 L (4.6-6.20) M/mm3 Hgb 12.9 L (14.0-18.0) g/dL Hct 38.7 L (42.0-52.0) % MCV 98.5 (80-100) fl MCH 32.8 (26-34) pg MCHC 33.3 (32-36) g/dl RDW 12.5 (11.5-14.5) % Plt Count 142 L (150-375) k/mm3 MPV 10.2 (7.4-10.4) fl Immature Gran % (Auto) 0.4 (0-0.5) % Neut % (Auto) 59.6 (45.5-73.1) % Lymph % (Auto) 26.2 (18.3-44.2) % [place] % (Auto) 10.4 H (2.6-8.5) % Eos % (Auto) 3.0 (0-4.4) % Baso % (Auto) 0.4 (0.2-1.2) % Lymph # (Auto) 1.39 (0.9-3.2) K/mm3 [place] # (Auto) 0.6 (0.1-0.6) K/mm3 Eos # (Auto) 0.2 (0-0.3) K/mm3 Baso # (Auto) 0.0 (0.0-0.1) K/mm3 Abs Immat Gran (auto) 0.02 (0.00-0.031) K/mm3 Absolute Neuts (auto) 3.2 (1.3-6.7) K/mm3 Absolute Nucleated RBC 0.000 (0.0-0.012) K/mm3 Nucleated RBC % 0.0 (0.0-0.2) % PT 15.0 H (11.1-14.7) Seconds INR 1.2 APTT 24.4 (22.3-36.8) Seconds Sodium 139 (137-145) mmol/L Potassium 4.2 (3.4-5.0) mmol/L Chloride 108 H (98-107) mmol/L Carbon Dioxide 30 (22-30) mmol/L Anion Gap 1 L (4-12) mmol/L BUN 21 H (9-20) mg/dL Creatinine 1.00 (0.7-1.3) mg/dL Estim Creat Clear Calc 56 ml/min Estimated GFR > 60 (59 - ) Glucose 105 (65-110) mg/dL Calcium 8.8 (8.4-10.2) mg/dL Total Bilirubin 0.6 (0.2-1.3) mg/dL AST 33 (17-59) U/L ALT 23 (6-50) U/L Alkaline Phosphatase 64 (38-126) U/L Troponin I 0.239 H* (0.000-0.034) ng/mL Total Protein 6.0 L (6.3-8.2) g/dL Albumin 3.8 (3.5-5.1) g/dL Lipase 97 (23-300) U/L Discharge Plan Discharge Clinical Impression: Acute non-ST elevation myocardial infarction (NSTEMI) Patient Disposition: Still a Patient Condition: Serious Patient Language: Peruvian Prescriptions: No Action aspirin 81 mg tablet,delayed release (DR/EC) 81 mg PO DAILY metformin 1,000 mg tablet 1,000 mg PO DAILY vitamin B complex Capsule 1 cap PO DAILY Multivitamin And Mineral Tablet 1 tablet PO DAILY Beet Root Complex 1 cap PO DAILY paroxetine HCl 10 mg tablet See Rx Instructions .ROUTE .COMPLEX Qty: 90 1RF Dose Instruction: TAKE 1 TABLET BY MOUTH DAILY Rx Instructions: TAKE 1 TABLET BY MOUTH DAILY meloxicam 15 mg tablet 15 mg PO DAILY PRN (Reason: arthritis) Qty: 90 1RF losartan 50 mg tablet See Rx Instructions .ROUTE .COMPLEX Qty: 90 1RF Dose Instruction: TAKE 1 TABLET BY MOUTH DAILY Rx Instructions: TAKE 1 TABLET BY MOUTH DAILY atorvastatin 10 mg tablet See Rx Instructions .ROUTE .COMPLEX Qty: 90 1RF Dose Instruction: TAKE 1 TABLET BY MOUTH DAILY Rx Instructions: TAKE 1 TABLET BY MOUTH DAILY Follow-up/Referrals: Israel Castillo MD [Primary Care Provider] -
--- NOTE | 2024-07-13 14:45 | PM.IMHP ---
H&P: HPI History of Present Illness Date/Time: 07/13/24 14:45 Chief Complaint: Chest discomfort. Narrative: This is a very pleasant 78-year-old male with prediabetes, hypertension, and hyperlipidemia presented to the emergency department via private vehicle for evaluation of chest discomfort. The patient provides the following history. He lives a very active lifestyle and exercises daily. On Friday while at the gym he developed what he initially describes as bloating discomfort, extending from the umbilicus up into the shoulders bilaterally. It seemed to occur only with activity and resolved with belching and rest. Over the course of the next couple of days he has had recurrent symptoms with exertion, once again better with breast. Associated symptoms include perhaps mild shortness of breath. He denies nausea, vomiting, sweats, syncope, and near syncope. He has occasional GERD symptoms for which he will take Tums but this is not at all similar. He has no known history of cardiac disease but did have a negative stress test done several years ago after an EKG showed ?abnormal Q-waves.? At the time my evaluation he is resting comfortably and has no discomfort. In the ED: Vital signs were stable on arrival. Labs were significant for WBC count of 6.3, hemoglobin 13.2, platelet 147, BUN 21, creatinine 1.00, troponin 0.239. EKG showed sinus rhythm with subtle ST depressions. He was given aspirin 324 mg and has been started on heparin drip. Cardiology has been consulted he will be admitted to the IMU for close monitoring. Review of Systems Review of Systems: 12 systems were reviewed. No recent cold or flu symptoms. No syncope or near syncope. He denies pleuritic pain and palpitations. No edema or calf pain. No melena hematochezia. Except as documented, all other systems were reviewed and are negative. [facility] Past Medical History Medical History (Updated 07/13/24 @ 14:59 by Nanette Bolden PA-C) Mixed hyperlipidemia Prediabetes Hypertension Lacunar infarction Abnormal electrocardiogram during exercise stress test Osteoarthritis of right knee Surgical History Surgical History (Updated 07/13/24 @ 14:59 by Nanette Bolden PA-C) History of meniscectomy of right knee Family History Family History Sibling Family history of sudden , Onset Age: 52 Other Family history of elevated blood lipids Hypertension Social History Social History (Updated 07/13/24 @ 14:52 by Nanette Bolden PA-C) Social History: Surrogated medical decision maker: Dagmar Cleveland, spouse. Code status: Full code. Smoking status: Never smoker Tobacco type: cigars Second hand tobacco smoke exposure: Yes Alcohol intake: current Drinks per week: 7 Substance use: never Substance use type: does not use Lack of Transportation: No Lack of Food: Never True Current Housing: I Have Housing Concerned About Future Housing: No Difficulty Paying Gas/Electric Bills: No Difficulty Paying for Meds: No Currently Unemployed: No Education: Master's Degree or Higher Difficulty w/ Childcare or Family Care: No Living arrangements: with family Additional living arrangements comments: Lives with in [place]. 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 Spiritual care concerns: No Meds Home Medications and Allergies Home Medications ?Medication ?Instructions ?Recorded ?Confirmed ?Type aspirin 81 mg tablet,delayed 81 mg PO DAILY 07/29/19 04/16/24 History release Beet Root Complex 1 cap PO DAILY 09/03/21 04/16/24 History multivitamin,gk-bobc-Be-FA-min 1 tablet PO DAILY 09/03/21 04/16/24 History vitamin B complex 1 cap PO DAILY 09/03/21 04/16/24 History metformin 1,000 mg tablet 1,000 mg PO DAILY 10/13/23 04/16/24 History paroxetine HCl 10 mg tablet See Rx Instructions .Route 03/03/24 04/16/24 Rx .COMPLEX #90 tabs meloxicam 15 mg tablet 15 mg PO DAILY PRN arthritis #90 04/29/24 Rx tabs losartan 50 mg tablet See Rx Instructions .Route 05/14/24 Rx .COMPLEX #90 tabs atorvastatin 10 mg tablet See Rx Instructions .Route 06/07/24 Rx .COMPLEX #90 tabs ascorbic acid (vitamin C) 500 mg 500 mg PO .bedtime 07/13/24 07/13/24 History tablet (C-500) calcium 333 mg-vit D3 133 1 tablet PO DAILY 07/13/24 07/13/24 History unit-magnesium 133 mg-zinc 5 mg tablet (Cristóbal Mag Zinc Plus D3) cholecalciferol (vitamin D3) 25 1,000 unit PO DAILY 07/13/24 07/13/24 History mcg (1,000 unit) capsule (Vitamin D3) coQ10 (ubiquinol) 100 mg capsule 100 mg PO .evening 07/13/24 07/13/24 History famotidine 10 mg tablet (Acid 10 mg PO DAILY PRN reflux 07/13/24 07/13/24 History Controller) melatonin 3 mg capsule 3 mg PO .bedtime 07/13/24 07/13/24 History Allergies Allergy/AdvReac Type Severity Reaction Status Date / Time lisinopril AdvReac Intermediate cough Verified 07/13/24 15:00 Vital Signs Vital Signs - 24 hr 07/13/24 11:41 07/13/24 13:13 07/13/24 13:15 Temperature 97.6 F Pulse Rate 54 L 51 L 51 L Respiratory Rate 16 20 14 Blood Pressure 126/53 L 139/65 Pulse Oximetry 100 99 100 Oxygen Delivery Room Air 07/13/24 13:25 07/13/24 13:25 07/13/24 13:31 Temperature Pulse Rate 51 L 56 L Respiratory Rate 19 23 H Blood Pressure 139/65 Pulse Oximetry 100 100 Oxygen Delivery Room Air Room Air 07/13/24 13:45 07/13/24 13:46 07/13/24 14:00 Temperature Pulse Rate 50 L 48 L 49 L Respiratory Rate 10 L 17 21 H Blood Pressure 139/72 142/68 H Pulse Oximetry 100 100 100 Oxygen Delivery 07/13/24 14:01 07/13/24 14:15 07/13/24 14:16 Temperature Pulse Rate 50 L 52 L 50 L Respiratory Rate 19 14 17 Blood Pressure 139/75 Pulse Oximetry 99 100 100 Oxygen Delivery 07/13/24 14:30 07/13/24 14:31 Temperature Pulse Rate 50 L 51 L Respiratory Rate 18 19 Blood Pressure 135/68 Pulse Oximetry 97 100 Oxygen Delivery H&P: Results Labs Labs: Short CBC 07/13/24 Range/Units 11:56 WBC 5.3 (4.5-10.0) K/mm3 Hgb 12.9 L (14.0-18.0) g/dL Hct 38.7 L (42.0-52.0) % Plt Count 142 L (150-375) k/mm3 BMP 07/13/24 11:56 Sodium 139 Potassium 4.2 Chloride 108 H Carbon Dioxide 30 BUN 21 H Creatinine 1.00 Glucose 105 Calcium 8.8 Cardiac Enzymes 07/13/24 Range/Units 11:56 Troponin I 0.239 H* (0.000-0.034) ng/mL Liver Function 07/13/24 Range/Units 11:56 Total Bilirubin 0.6 (0.2-1.3) mg/dL AST 33 (17-59) U/L ALT 23 (6-50) U/L Alkaline Phosphatase 64 (38-126) U/L Albumin 3.8 (3.5-5.1) g/dL Imaging Chest X-Ray 07/13/24 12:45 IMPRESSION: No acute cardiopulmonary pathology. Assessment and Plan Assessment and plan (1) Acute non-ST elevation myocardial infarction (NSTEMI): Code(s): I21.4 - Non-ST elevation (NSTEMI) myocardial infarction Status: Acute (2) Hypertension: Code(s): I10 - Essential (primary) hypertension Status: Acute (3) Hyperlipidemia: Code(s): E78.5 - Hyperlipidemia, unspecified Status: Acute (4) Prediabetes: Code(s): R73.03 - Prediabetes Status: Acute Plan The patient presented to the emergency department for evaluation of chest discomfort as detailed in HPI. Labs, imaging, EKG, and all reports were personally reviewed. He presents with exertional angina for couple of days. Initial troponin was a bit elevated and EKG shows subtle ST depressions. He was given aspirin 324 mg and has been started on a heparin drip. He will be NPO after midnight for probable cardiac catheterization tomorrow. Dr. Russ was consulted by the ED physician her input is greatly appreciated. Vital signs were reviewed and they are stable. His home medications will be reviewed and resumed as appropriate. Findings and treatment plan were discussed with the patient and his . Questions were solicited and answered to satisfaction. The patient's medical management will be taken over by the hospitalist team in a.m. Quality VTE Prophylaxis VTE prophylaxis: pharmacologic ordered (on heparin drip) Hospitalist MIPS Advance Care Plan I have confirmed that the patient's Advanced Care Plan is present, code status is documented, or surrogate decision maker is listed in patient medical record.: Yes Medication Reconciliation The patient is not eligible for med reconciliation; the patient is in a emergent medical situation where delaying treatment would jeopardize the patients health.: Yes
[2024-07-13 14:48] LABS: Basophils Percent Auto 0.5 % (0.2-1.2); Eosinophils Absolute Auto 0.2 K/mm3 (0-0.3); Hematocrit 38.4 % (42.0-52.0); Hemoglobin 13.2 g/dL (14.0-18.0); Immature Granulocyte Absolute 0.03 K/mm3 (0.00-0.031); Immature Granulocyte Percent A 0.5 % (0-0.5); Lymphocytes Absolute Auto 1.73 K/mm3 (0.9-3.2); Lymphocytes Percent Auto 27.5 % (18.3-44.2); Mean Corpuscular HGB Conc 34.4 g/dl (32-36); Mean Corpuscular Hemoglobin 33.4 pg (26-34); Mean Corpuscular Volume 97.2 fl (80-100); Mean Platelet Volume 10.4 fl (7.4-10.4); Monocytes Absolute Auto 0.6 K/mm3 (0.1-0.6); Monocytes Percent Auto 9.5 % (2.6-8.5); Neutrophils Absolute Auto 3.7 K/mm3 (1.3-6.7); Platelet Count Result 147 k/mm3 (150-375); Red Blood Count 3.95 M/mm3 (4.6-6.20); Red Cell Distribution Width 12.5 % (11.5-14.5); White Blood Count 6.3 K/mm3 (4.5-10.0)
[2024-07-13 15:16] LABS: Troponin I 0.286 ng/mL (0.000-0.034)
[2024-07-13] MEDS: ATORVASTATIN 40 MG TABLET 80 MG PO (15:21)
--- NOTE | 2024-07-13 15:59 | P.CONCA_ITS ---
Assessment and Plan Assessment and plan (1) Acute non-ST elevation myocardial infarction (NSTEMI): Code(s): I21.4 - Non-ST elevation (NSTEMI) myocardial infarction Status: Acute Assessment and Plan: Recommend LHC. Discussed procedure with the patient, including indication for the procedure, procedure details, risk vs benefits. Patient agreeable. Will plan for LHC tomorrow morning. NPO at midnight. Continue Heparin drip. Continue ASA 81mg once daily. On Atorvastatin 10mg at home, will increase to 80mg. Will hold off on beta marbin due to resting heart rates in the 50s. Echocardiogram ordered and pending. (2) Hypertension: Code(s): I10 - Essential (primary) hypertension Status: Acute Assessment and Plan: Stable. Continue home Losartan. (3) Hyperlipidemia: Code(s): E78.5 - Hyperlipidemia, unspecified Status: Acute Assessment and Plan: On Atorvastatin 10mg at home, will increase to 80mg. Plan Recommendations and plan discussed with Hospitalist. History of Present Illness History of Present Illness Consult date/time: 07/13/24 15:59 Requesting physician: Loly Kaye MD Consult reason: chest pain Reason For Visit: NSTEMI Narrative: This is a 78 year old male patient of Dr. Haines's with hypertension, hyperlipidemia, prediabetes who presented with chest pain. Chest pain began yesterday while working out at the gym. Occurred about 4 minutes into doing elliptical. Improved with rest. He continued to work out, however, would get exertional chest pain that would improve with rest. Went on a walk in the evening yesterday where he had chest pain as well. This morning, he went to walk his dog outside, and just walking around [place], he developed chest pain. Workup here shows elevated troponin of 0.239, 0.286. EKG with sinus rhythm, mild ST depressions in diffuse leads. He is currently feeling well upon my evaluation and is chest pain free. Started on Heparin drip. Review of Systems 2 Review of Systems: All systems reviewed & are unremarkable except as noted in HPI and below (HPI) [facility] Past Medical History Medical History Mixed hyperlipidemia Prediabetes Hypertension Lacunar infarction Abnormal electrocardiogram during exercise stress test Osteoarthritis of right knee Surgical History Surgical History History of meniscectomy of right knee Family History Family History Sibling Family history of sudden , Onset Age: 52 Other Family history of elevated blood lipids Hypertension Social History Social History Social History: Surrogated medical decision maker: Dagmar Cleveland, spouse. Code status: Full code. Smoking status: Never smoker Tobacco type: cigars Second hand tobacco smoke exposure: Yes Alcohol intake: current Drinks per week: 7 Substance use: never Substance use type: does not use Lack of Transportation: No Lack of Food: Never True Current Housing: I Have Housing Concerned About Future Housing: No Difficulty Paying Gas/Electric Bills: No Difficulty Paying for Meds: No Currently Unemployed: No Education: Master's Degree or Higher Difficulty w/ Childcare or Family Care: No Living arrangements: with family Additional living arrangements comments: Lives with in [place]. 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 Spiritual care concerns: No Meds Home Medications and Allergies Home Medications ?Medication ?Instructions ?Recorded ?Confirmed ?Type aspirin 81 mg tablet,delayed 81 mg PO DAILY 07/29/19 07/13/24 History release Beet Root Complex 1 cap PO DAILY 09/03/21 07/13/24 History multivitamin,tc-hhob-Iw-FA-min 1 tablet PO DAILY 09/03/21 07/13/24 History vitamin B complex 1 cap PO DAILY 09/03/21 07/13/24 History metformin 1,000 mg tablet 1,000 mg PO DAILY 10/13/23 07/13/24 History paroxetine HCl 10 mg tablet See Rx Instructions .Route 03/03/24 07/13/24 Rx .COMPLEX #90 tabs meloxicam 15 mg tablet 15 mg PO DAILY PRN arthritis #90 04/29/24 07/13/24 Rx tabs losartan 50 mg tablet See Rx Instructions .Route 05/14/24 07/13/24 Rx .COMPLEX #90 tabs atorvastatin 10 mg tablet See Rx Instructions .Route 06/07/24 07/13/24 Rx .COMPLEX #90 tabs ascorbic acid (vitamin C) 500 mg 500 mg PO .bedtime 07/13/24 07/13/24 History tablet (C-500) calcium 333 mg-vit D3 133 1 tablet PO DAILY 07/13/24 07/13/24 History unit-magnesium 133 mg-zinc 5 mg tablet (Cristóbal Mag Zinc Plus D3) cholecalciferol (vitamin D3) 25 1,000 unit PO DAILY 07/13/24 07/13/24 History mcg (1,000 unit) capsule (Vitamin D3) coQ10 (ubiquinol) 100 mg capsule 100 mg PO .evening 07/13/24 07/13/24 History famotidine 10 mg tablet (Acid 10 mg PO DAILY PRN reflux 07/13/24 07/13/24 History Controller) melatonin 3 mg capsule 3 mg PO .bedtime 07/13/24 07/13/24 History Allergies Allergy/AdvReac Type Severity Reaction Status Date / Time lisinopril AdvReac Intermediate cough Verified 07/13/24 15:00 Vital Signs Vital Signs - 24 hr 07/13/24 11:41 07/13/24 13:13 07/13/24 13:15 Temperature 36.4 C Pulse Rate 54 L 51 L 51 L Respiratory Rate 16 20 14 Blood Pressure 126/53 L 139/65 Pulse Oximetry 100 99 100 Oxygen Delivery Room Air 07/13/24 13:25 07/13/24 13:25 07/13/24 13:31 Temperature Pulse Rate 51 L 56 L Respiratory Rate 19 23 H Blood Pressure 139/65 Pulse Oximetry 100 100 Oxygen Delivery Room Air Room Air 07/13/24 13:45 07/13/24 13:46 07/13/24 14:00 Temperature Pulse Rate 50 L 48 L 49 L Respiratory Rate 10 L 17 21 H Blood Pressure 139/72 142/68 H Pulse Oximetry 100 100 100 Oxygen Delivery 07/13/24 14:01 07/13/24 14:15 07/13/24 14:16 Temperature Pulse Rate 50 L 52 L 50 L Respiratory Rate 19 14 17 Blood Pressure 139/75 Pulse Oximetry 99 100 100 Oxygen Delivery 07/13/24 14:30 07/13/24 14:31 Temperature Pulse Rate 50 L 51 L Respiratory Rate 18 19 Blood Pressure 135/68 Pulse Oximetry 97 100 Oxygen Delivery Exam 2 Const: General: comfortable and no acute distress HENMT: Mouth: Yes moist mucous membranes Eyes: General: appearance normal, both eyes and all related structures S clera: sclerae normal Resp: Effort & Inspection: normal respiratory effort Cardio: Rate: regular rate Rhythm: regular rhythm Heart sounds: no murmurs Skin: General skin exam: normal color Neuro: Speech: normal speech Psych: Mental Status: mental status grossly normal Affect: normal affect Results Labs and Meds 07/13/24 14:39 12 11:56 Lab results: Cardiac Enzymes 07/13/24 07/13/24 Range/Units 11:56 14:39 AST 33 (17-59) U/L Troponin I 0.239 H* 0.286 H* (0.000-0.034) ng/mL Coagulation 07/13/24 Range/Units 11:56 PT 15.0 H (11.1-14.7) Seconds APTT 24.4 (22.3-36.8) Seconds CBC 07/13/24 07/13/24 Range/Units 11:56 14:39 WBC 5.3 6.3 (4.5-10.0) K/mm3 RBC 3.93 L 3.95 L (4.6-6.20) M/mm3 Hgb 12.9 L 13.2 L (14.0-18.0) g/dL Hct 38.7 L 38.4 L (42.0-52.0) % Plt Count 142 L 147 L (150-375) k/mm3 Lymph # (Auto) 1.39 1.73 (0.9-3.2) K/mm3 [place] # (Auto) 0.6 0.6 (0.1-0.6) K/mm3 Eos # (Auto) 0.2 0.2 (0-0.3) K/mm3 Baso # (Auto) 0.0 0.0 (0.0-0.1) K/mm3 Comprehensive Metabolic Panel 07/13/24 Range/Units 11:56 Sodium 139 (137-145) mmol/L Potassium 4.2 (3.4-5.0) mmol/L Chloride 108 H (98-107) mmol/L Carbon Dioxide 30 (22-30) mmol/L BUN 21 H (9-20) mg/dL Creatinine 1.00 (0.7-1.3) mg/dL Glucose 105 (65-110) mg/dL Calcium 8.8 (8.4-10.2) mg/dL AST 33 (17-59) U/L ALT 23 (6-50) U/L Alkaline Phosphatase 64 (38-126) U/L Total Protein 6.0 L (6.3-8.2) g/dL Albumin 3.8 (3.5-5.1) g/dL Patient Weight 07/13/24 23:59 Weight 77.3 kg
[2024-07-13] MEDS: PERFLUTREN LIPID MICROSPHERES 1.5 ML VIAL DILUTED TO 10 ML TOTAL VOLUME IV PUSH (16:05)
--- NOTE | 2024-07-13 16:17 | IVDEFINITY ---
Prior to administration of IV Definity the patient was educated on the risks and benefits of the imaging enhancing agent including potential adverse side effects. The patient verbalized understanding. Allergies were verified. No exclusion criteria were identified and at least one of the following inclusion criteria were met: 1) physician request, 2) patient technically difficult to image (per the [place] [employer] Echocardi[employer] guidelines of two or more segments not discernable within the apical view), or 3) questionable left ventricular function. ?
[2024-07-13 16:32] LABS: Cholesterol 142 mg/dL (0-200); HDL Direct 36 mg/dL; Triglycerides 62 mg/dL (<150)
[2024-07-13 16:43] LABS: LDL Cholesterol Direct 85 mg/dL
--- NOTE | 2024-07-13 17:44 | ECG_ITS ---
Test Date: 2024-07-13 18:39:53 Measurements Intervals [place] Rate: 57 P: 42 OR: 200 QRS: -16 QRSD: 109 T: 98 QT: 426 QTc: 416 Interpretive Statements SINUS BRADYCARDIA WITH OCCASIONAL VENTRICULAR PREMATURE COMPLEXES NONSPECIFIC ST & T-WAVE ABNORMALITY Compared to ECG 07/13/2024 11:49:53 Ventricular premature complex(es) now present T-wave abnormality still present Electronically Signed On 07-14-2024 11:48:44 [employer]PUT[employer] PROFESSIONAL by Steffen Fernandes
[2024-07-13 18:25] LABS: Hemoglobin A1C 5.8 % (<5.7)
[2024-07-13 18:33] LABS: Troponin I 0.314 ng/mL (0.000-0.034)
[2024-07-13 20:28] LABS: INR 1.1; Partial Thromboplastin Time 37.3 Seconds (22.3-36.8); Prothrombin Time 14.5 Seconds (11.1-14.7)
--- NOTE | 2024-07-13 21:55 | ADMGEN ---
This patient, Luca Cleveland, was admitted to Virtual [facility] IMU[facility]. Patient/family oriented to hospital policies and general routines including ID bracelet, bed and alarms, visiting hours, pain management, procedures, bathroom and other care routines, personal items, smoking policy, room service/diet, and visiting hours. Information on how to activate the Rapid Response Team has been discussed. Patient/Family are encouraged to report perceived risks to care and to ask questions if they do not understand what they are told or what they should do.
[2024-07-14] VITALS (26 sets, daily range): BP systolic 110–145; BP diastolic 52–72; PULSE 51–101; RESP 11–20; TEMP 36.5–36.8; O2SAT 94–100
[2024-07-14] MEDS: PARoxetine 10 MG TABLET BY MOUTH (00:25)
[2024-07-14] MEDS: ATORVASTATIN 10 MG TABLET BY MOUTH (00:25)
[2024-07-14] MEDS: LOSARTAN POTASSIUM 50 MG TABLET BY MOUTH (00:25)
[2024-07-14] MEDS: MELATONIN 3 MG TABLET PO (00:25)
[2024-07-14] MEDS: ACETAMINOPHEN 325 MG TABLET 650 MG PO (00:29)
[2024-07-14 03:05] LABS: Basophils Percent Auto 0.3 % (0.2-1.2); Eosinophils Absolute Auto 0.2 K/mm3 (0-0.3); Eosinophils Percent Auto 3.3 % (0-4.4); Hematocrit 36.5 % (42.0-52.0); Hemoglobin 12.7 g/dL (14.0-18.0); Immature Granulocyte Absolute 0.02 K/mm3 (0.00-0.031); Immature Granulocyte Percent A 0.3 % (0-0.5); Immature Platelet Fraction Pct 2.7 % (0.9-11.2); Lymphocytes Absolute Auto 1.99 K/mm3 (0.9-3.2); Lymphocytes Percent Auto 33.1 % (18.3-44.2); Mean Corpuscular HGB Conc 34.8 g/dl (32-36); Mean Corpuscular Hemoglobin 33.2 pg (26-34); Mean Corpuscular Volume 95.5 fl (80-100); Mean Platelet Volume 10.3 fl (7.4-10.4); Monocytes Absolute Auto 0.5 K/mm3 (0.1-0.6); Monocytes Percent Auto 8.1 % (2.6-8.5); Neutrophils Absolute Auto 3.3 K/mm3 (1.3-6.7); Neutrophils Percent Auto 54.9 % (45.5-73.1); Platelet Count Result 132 k/mm3 (150-375); Red Blood Count 3.82 M/mm3 (4.6-6.20); Red Cell Distribution Width 12.5 % (11.5-14.5)
[2024-07-14 03:15] LABS: Anion Gap 3 mmol/L (4-12); Blood Urea Nitrogen 20 mg/dL (9-20); Calcium 8.6 mg/dL (8.4-10.2); Carbon Dioxide 25 mmol/L (22-30); Chloride 110 mmol/L (98-107); Cholesterol 134 mg/dL (0-200); Estimated CRCL calculation 61 ml/min; Estimated Glomerular Filt Rate > 60; Glucose 97 mg/dL (65-110); HDL Direct 35 mg/dL; Magnesium 2.2 mg/dL (1.6-2.3); Potassium 3.9 mmol/L (3.4-5.0); Sodium 138 mmol/L (137-145); Triglycerides 76 mg/dL (<150)
[2024-07-14 03:19] LABS: INR 1.2; Prothrombin Time 15.1 Seconds (11.1-14.7)
[2024-07-14 03:20] LABS: Partial Thromboplastin Time 48.2 Seconds (22.3-36.8)
[2024-07-14 03:26] LABS: LDL Cholesterol Direct 73 mg/dL
[2024-07-14] MEDS: HEPARIN SODIUM 5,000 UNITS/ML VIAL 4000 UNITS IV PUSH (03:40)
[2024-07-14] MEDS: ATORVASTATIN 40 MG TABLET 80 MG PO (08:18)
[2024-07-14] MEDS: ASPIRIN 81 MG ENTERIC TABLET PO (08:18)
--- NOTE | 2024-07-14 09:11 | P.SEDATION_ITS ---
Moderate Sedation Note-Pt Data Patient Data Diagnosis: NSTEMI Present Complaint: 78 year old male patient of Dr. Haines's with hypertension, hyperlipidemia, prediabetes who presented with chest pain. Procedure to be performed/Plan: LEFT HEART CATHETERIZATION CORONARY ANGIOGRAPHY Allergies Allergy/AdvReac Type Severity Reaction Status Date / Time lisinopril AdvReac Intermediate cough Verified 07/13/24 15:00 Home Medications ?Medication ?Instructions ?Recorded ?Confirmed ?Type aspirin 81 mg tablet,delayed 81 mg PO DAILY 07/29/19 07/13/24 History release Beet Root Complex 1 cap PO DAILY 09/03/21 07/13/24 History multivitamin,ib-sxzn-Ig-FA-min 1 tablet PO DAILY 09/03/21 07/13/24 History vitamin B complex 1 cap PO DAILY 09/03/21 07/13/24 History metformin 1,000 mg tablet 1,000 mg PO DAILY 10/13/23 07/13/24 History paroxetine HCl 10 mg tablet See Rx Instructions .Route 03/03/24 07/13/24 Rx .COMPLEX #90 tabs meloxicam 15 mg tablet 15 mg PO DAILY PRN arthritis #90 04/29/24 07/13/24 Rx tabs losartan 50 mg tablet See Rx Instructions .Route 05/14/24 07/13/24 Rx .COMPLEX #90 tabs atorvastatin 10 mg tablet See Rx Instructions .Route 06/07/24 07/13/24 Rx .COMPLEX #90 tabs ascorbic acid (vitamin C) 500 mg 500 mg PO .bedtime 07/13/24 07/13/24 History tablet (C-500) calcium 333 mg-vit D3 133 1 tablet PO DAILY 07/13/24 07/13/24 History unit-magnesium 133 mg-zinc 5 mg tablet (Cristóbal Mag Zinc Plus D3) cholecalciferol (vitamin D3) 25 1,000 unit PO DAILY 07/13/24 07/13/24 History mcg (1,000 unit) capsule (Vitamin D3) coQ10 (ubiquinol) 100 mg capsule 100 mg PO .evening 07/13/24 07/13/24 History famotidine 10 mg tablet (Acid 10 mg PO DAILY PRN reflux 07/13/24 07/13/24 History Controller) melatonin 3 mg capsule 3 mg PO .bedtime 07/13/24 07/13/24 History Current Medications: Active Medications Acetaminophen (Acetaminophen 325 Mg Tablet) 650 mg PO Q6H PRN PRN Reason: Mild Pain (1-3) or Fever Last Admin: 07/14/24 00:29 Dose: 650 mg Aspirin (Aspirin 81 Mg Enteric Tablet) [facility] Last Admin: 07/14/24 08:18 Dose: 81 mg Atorvastatin Calcium (Atorvastatin 40 Mg Tablet) 80 mg PO DAILY [facility] Last Admin: 07/14/24 08:18 Dose: 80 mg Atorvastatin Calcium (Atorvastatin 10 Mg Tablet) 10 mg BY MOUTH [facility] Last Admin: 07/14/24 00:25 Dose: 10 mg Famotidine (Famotidine 10 Mg Tablet) 10 mg PO DAILY PRN PRN Reason: reflux Heparin Sodium (Porcine) (Heparin Sodium 5,000 Units/Ml Vial) 4,000 units IV PUSH PRN PRN PRN Reason: aPTT less than 55 seconds Last Admin: 07/14/24 03:40 Dose: 4,000 units Heparin Sodium (Porcine) (Heparin Sodium 5,000 Units/Ml Vial) 3,000 units IV PUSH PRN PRN PRN Reason: aPTT 55 - 70 seconds Heparin Sodium/Dextrose (Heparin Sodium/D5w 100 Units/Ml) 25,000 units in 250 mls @ 15 mls/hr IV CONT .[id number] [facility], [facility]; Protocol Last Titration: 07/14/24 03:42 Dose: 1,500 units/hr, 15 mls/hr Losartan Potassium (Losartan Potassium 50 Mg Tablet) 50 mg BY MOUTH [facility] Last Admin: 07/14/24 00:25 Dose: 50 mg Melatonin (Melatonin 3 Mg Tablet) 3 mg PO [facility] Last Admin: 07/14/24 00:25 Dose: 3 mg Morphine Sulfate (Morphine Sulfate (*Crx) 2 Mg/Ml Inj) 2 mg IV PUSH Q4H PRN PRN Reason: Pain Rated 7-10 Paroxetine HCl (Paroxetine 10 Mg Tablet) 10 mg BY MOUTH [facility] Last Admin: 07/14/24 00:25 Dose: 10 mg Sedation/Anesthesia: No previous sedation/anesthesia problems (including family history). [facility] Past Medical History Medical History Mixed hyperlipidemia Prediabetes Hypertension Lacunar infarction Abnormal electrocardiogram during exercise stress test Osteoarthritis of right knee Surgical History Surgical History History of meniscectomy of right knee Family History Family History Sibling Family history of sudden , Onset Age: 52 Other Family history of elevated blood lipids Hypertension Social History Social History Social History: Surrogated medical decision maker: Dagmar [place], spouse. Code status: Full code. Smoking status: Never smoker Tobacco type: cigars Second hand tobacco smoke exposure: Yes Alcohol intake: current Drinks per week: 7 Substance use: never Substance use type: does not use Do You Feel Safe in your Home?: Yes Lack of Transportation: No Lack of Food: Never True Current Housing: I Have Housing Concerned About Future Housing: No Difficulty Paying Gas/Electric Bills: No Difficulty Paying for Meds: No Currently Unemployed: No Education: Master's Degree or Higher Difficulty w/ Childcare or Family Care: No Living arrangements: with family Additional living arrangements comments: Lives with in [place]. 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 Spiritual care concerns: No Mod Sed Physical Exam Physical Exam Pre Procedural Exam: Normal: Appearance, Eyes, Ears, Nose, Neck, Throat, Airway, Lungs, Heart Size, Heart Rate, Heart Rhythm, Neuro Exam, Abdomen, Liver, Kidneys, Spleen, Breasts, Genitalia, Extremities and Skin Hours since solid foods: 12 Hours since liquid intake: 12 Mallampati Classification: class II Internal Medicine - PN: Obj Da Vital Signs Vital Signs: Vital Signs - 24 hr 07/13/24 11:41 07/13/24 13:13 07/13/24 13:15 Temperature 36.4 C Pulse Rate 54 L 51 L 51 L Respiratory Rate 16 20 14 Blood Pressure 126/53 L 139/65 Pulse Oximetry 100 99 100 Oxygen Delivery Room Air 07/13/24 13:25 07/13/24 13:25 07/13/24 13:31 Temperature Pulse Rate 51 L 56 L Respiratory Rate 19 23 H Blood Pressure 139/65 Pulse Oximetry 100 100 Oxygen Delivery Room Air Room Air 07/13/24 13:45 07/13/24 13:46 07/13/24 14:00 Temperature Pulse Rate 50 L 48 L 49 L Respiratory Rate 10 L 17 21 H Blood Pressure 139/72 142/68 H Pulse Oximetry 100 100 100 Oxygen Delivery 07/13/24 14:01 07/13/24 14:15 07/13/24 14:16 Temperature Pulse Rate 50 L 52 L 50 L Respiratory Rate 19 14 17 Blood Pressure 139/75 Pulse Oximetry 99 100 100 Oxygen Delivery 07/13/24 14:30 07/13/24 14:31 07/13/24 14:51 Temperature Pulse Rate 50 L 51 L 51 L Respiratory Rate 18 19 12 Blood Pressure 135/68 Pulse Oximetry 97 100 Oxygen Delivery 07/13/24 15:00 07/13/24 15:01 07/13/24 15:21 Temperature Pulse Rate 52 L 53 L 54 L Respiratory Rate 14 18 18 Blood Pressure 138/71 Pulse Oximetry 98 99 100 Oxygen Delivery 07/13/24 15:30 07/13/24 15:31 07/13/24 15:45 Temperature Pulse Rate 51 L 55 L 54 L Respiratory Rate 19 22 H 18 Blood Pressure 137/75 Pulse Oximetry 100 100 97 Oxygen Delivery 07/13/24 15:46 07/13/24 16:00 07/13/24 16:01 Temperature Pulse Rate 54 L 54 L 51 L Respiratory Rate 18 20 17 Blood Pressure 124/61 107/60 Pulse Oximetry 97 Oxygen Delivery 07/13/24 16:15 07/13/24 16:16 07/13/24 16:39 Temperature Pulse Rate 49 L 50 L 53 L Respiratory Rate 11 L 13 16 Blood Pressure 135/71 Pulse Oximetry 100 99 99 Oxygen Delivery 07/13/24 16:45 07/13/24 16:46 07/13/24 16:47 Temperature Pulse Rate 54 L 54 L 53 L Respiratory Rate 18 13 13 Blood Pressure 140/67 Pulse Oximetry 98 100 100 Oxygen Delivery 07/13/24 17:02 07/13/24 17:15 07/13/24 17:30 Temperature Pulse Rate 53 L 56 L 60 Respiratory Rate 20 20 19 Blood Pressure Pulse Oximetry 100 99 98 Oxygen Delivery 07/13/24 17:31 07/13/24 17:45 07/13/24 18:00 Temperature Pulse Rate 58 L 53 L 63 Respiratory Rate 19 21 H 15 Blood Pressure 143/76 H Pulse Oximetry 98 100 98 Oxygen Delivery 07/13/24 18:06 07/13/24 18:15 07/13/24 18:16 Temperature Pulse Rate 58 L 59 L 61 Respiratory Rate 18 16 19 Blood Pressure 90/42 L 112/51 L Pulse Oximetry 100 99 99 Oxygen Delivery 07/13/24 18:30 07/13/24 18:31 07/13/24 18:32 Temperature Pulse Rate 56 L 57 L 59 L Respiratory Rate 18 18 18 Blood Pressure 105/51 L Pulse Oximetry 100 100 99 Oxygen Delivery 07/13/24 18:45 07/13/24 19:00 07/13/24 19:01 Temperature Pulse Rate 61 59 L 56 L Respiratory Rate 13 23 H 17 Blood Pressure 117/57 L Pulse Oximetry 98 98 Oxygen Delivery 07/13/24 19:15 07/13/24 19:30 07/13/24 19:31 Temperature Pulse Rate 58 L 55 L 56 L Respiratory Rate 15 14 19 Blood Pressure 118/55 L Pulse Oximetry 98 96 97 Oxygen Delivery 07/13/24 20:05 07/13/24 20:15 07/13/24 20:34 Temperature Pulse Rate 56 L 55 L 56 L Respiratory Rate 11 L 20 22 H Blood Pressure Pulse Oximetry 99 98 96 Oxygen Delivery 07/13/24 20:45 07/13/24 21:01 07/13/24 21:19 Temperature Pulse Rate 57 L 57 L 54 L Respiratory Rate 25 H 17 15 Blood Pressure Pulse Oximetry 95 98 Oxygen Delivery 07/13/24 22:00 07/13/24 22:00 07/13/24 22:06 Temperature 36.7 C Pulse Rate 52 L 52 L 54 L Respiratory Rate 18 18 Blood Pressure 118/63 Pulse Oximetry 100 100 Oxygen Delivery Room Air 07/14/24 00:00 07/14/24 00:30 07/14/24 02:00 Temperature Pulse Rate 53 L 54 L 55 L Respiratory Rate 18 Blood Pressure Pulse Oximetry 100 Oxygen Delivery Room Air 07/14/24 04:00 07/14/24 04:00 07/14/24 04:15 Temperature 36.8 C Pulse Rate 53 L 58 L 55 L Respiratory Rate 16 18 Blood Pressure 110/65 Pulse Oximetry 98 100 Oxygen Delivery Room Air 07/14/24 06:00 07/14/24 08:11 Temperature 36.5 C Pulse Rate 52 L 100 Respiratory Rate 16 Blood Pressure 128/69 Pulse Oximetry 94 Oxygen Delivery Intake/Output Intake/Output: Intake & Output 12/08/24 07/12/24 07/13/24 07/14/24 23:59 23:59 23:59 23:59 Intake Total 67.5 79.8 Output Total 950 Balance -882.5 79.8 Meds/Results Medications: Active Medications Generic Name Dose Route Start Last Admin Trade Name Freq PRN Reason Stop Dose Admin Acetaminophen 650 mg 07/13/24 15:14 07/14/24 00:29 Acetaminophen 325 Mg Tablet PO 650 mg Q6H PRN Administration Mild Pain (1-3) or Fever Aspirin 81 mg 07/14/24 09:00 07/14/24 08:18 Aspirin 81 Mg Enteric Tablet PO 81 mg QAM VALARIE Administration Atorvastatin Calcium 80 mg 07/13/24 15:05 07/14/24 08:18 Atorvastatin 40 Mg Tablet PO 80 mg DAILY VALARIE Administration Atorvastatin Calcium 10 mg 07/13/24 23:20 07/14/24 00:25 Atorvastatin 10 Mg Tablet BY MOUTH 10 mg HS VALARIE Administration Famotidine 10 mg 07/13/24 23:18 Famotidine 10 Mg Tablet PO DAILY PRN reflux Heparin Sodium (Porcine) 4,000 units 07/13/24 12:54 07/14/24 03:40 Heparin Sodium 5,000 Units/Ml Vial IV PUSH 4,000 units PRN PRN Administration aPTT less than 55 seconds Heparin Sodium (Porcine) 3,000 units 07/13/24 12:54 Heparin Sodium 5,000 Units/Ml Vial IV PUSH PRN PRN aPTT 55 - 70 seconds Heparin Sodium/Dextrose 25,000 units in 250 mls @ 15 mls/hr 07/13/24 12:55 07/14/24 03:42 Heparin Sodium/D5w 100 Units/Ml IV CONT 1,500 units/hr .[id number] VALARIE 15 mls/hr Titration Protocol 1,500 UNITS/HR Losartan Potassium 50 mg 07/13/24 23:20 07/14/24 00:25 Losartan Potassium 50 Mg Tablet BY MOUTH 50 mg HS VALARIE Administration Melatonin 3 mg 07/13/24 23:20 07/14/24 00:25 Melatonin 3 Mg Tablet PO 3 mg HS VALARIE Administration Morphine Sulfate 2 mg 07/13/24 15:14 Morphine Sulfate (*Crx) 2 Mg/Ml Inj IV PUSH Q4H PRN Pain Rated 7-10 Paroxetine HCl 10 mg 07/13/24 23:20 07/14/24 00:25 Paroxetine 10 Mg Tablet BY MOUTH 10 mg HS VALARIE Administration Radiology Results: ITS Impressions Chest X-Ray 07/13/24 12:45 IMPRESSION: No acute cardiopulmonary pathology. Labs 07/14/24 02:58 07/14/24 02:58 Labs: Laboratory Results - last 24 hr 07/13/24 07/13/24 07/13/24 11:56 14:39 16:12 WBC 5.3 6.3 RBC 3.93 L 3.95 L Hgb 12.9 L 13.2 L Hct 38.7 L 38.4 L MCV 98.5 97.2 MCH 32.8 33.4 MCHC 33.3 34.4 RDW 12.5 12.5 Plt Count 142 L 147 L MPV 10.2 10.4 Immature Gran % (Auto) 0.4 0.5 Neut % (Auto) 59.6 59.0 Lymph % (Auto) 26.2 27.5 [place] % (Auto) 10.4 H 9.5 H Eos % (Auto) 3.0 3.0 Baso % (Auto) 0.4 0.5 Lymph # (Auto) 1.39 1.73 [place] # (Auto) 0.6 0.6 Eos # (Auto) 0.2 0.2 Baso # (Auto) 0.0 0.0 Abs Immat Gran (auto) 0.02 0.03 Absolute Neuts (auto) 3.2 3.7 Absolute Nucleated RBC 0.000 0.000 Nucleated RBC % 0.0 0.0 % Immature Plt Fraction PT 15.0 H INR 1.2 APTT 24.4 Sodium 139 Potassium 4.2 Chloride 108 H Carbon Dioxide 30 Anion Gap 1 L BUN 21 H Creatinine 1.00 Estim Creat Clear Calc 56 Estimated GFR > 60 Glucose 105 Hemoglobin A1c 5.8 H Calcium 8.8 Magnesium Total Bilirubin 0.6 AST 33 ALT 23 Alkaline Phosphatase 64 Troponin I 0.239 H* 0.286 H* Total Protein 6.0 L Albumin 3.8 Triglycerides 62 Cholesterol 142 LDL Cholesterol Direct 85 HDL Direct 36 Lipase 97 TSH 1.700 07/13/24 07/13/24 07/13/24 17:48 19:52 19:52 WBC RBC Hgb Hct MCV MCH MCHC RDW Plt Count MPV Immature Gran % (Auto) Neut % (Auto) Lymph % (Auto) [place] % (Auto) Eos % (Auto) Baso % (Auto) Lymph # (Auto) [place] # (Auto) Eos # (Auto) Baso # (Auto) Abs Immat Gran (auto) Absolute Neuts (auto) Absolute Nucleated RBC Nucleated RBC % % Immature Plt Fraction PT 14.5 Cancelled INR 1.1 APTT Sodium Potassium Chloride Carbon Dioxide Anion Gap BUN Creatinine Estim Creat Clear Calc Estimated GFR Glucose Hemoglobin A1c Calcium Magnesium Total Bilirubin AST ALT Alkaline Phosphatase Troponin I 0.314 H* Total Protein Albumin Triglycerides Cholesterol LDL Cholesterol Direct HDL Direct Lipase TSH 07/13/24 07/14/24 19:52 02:58 WBC 6.0 RBC 3.82 L Hgb 12.7 L Hct 36.5 L MCV 95.5 MCH 33.2 MCHC 34.8 RDW 12.5 Plt Count 132 L MPV 10.3 Immature Gran % (Auto) 0.3 Neut % (Auto) 54.9 Lymph % (Auto) 33.1 [place] % (Auto) 8.1 Eos % (Auto) 3.3 Baso % (Auto) 0.3 Lymph # (Auto) 1.99 [place] # (Auto) 0.5 Eos # (Auto) 0.2 Baso # (Auto) 0.0 Abs Immat Gran (auto) 0.02 Absolute Neuts (auto) 3.3 Absolute Nucleated RBC 0.000 Nucleated RBC % 0.0 % Immature Plt Fraction 2.7 PT 15.1 H INR Cancelled 1.2 APTT 37.3 H 48.2 H Sodium 138 Potassium 3.9 Chloride 110 H Carbon Dioxide 25 Anion Gap 3 L BUN 20 Creatinine 0.90 Estim Creat Clear Calc 61 Estimated GFR > 60 Glucose 97 Hemoglobin A1c 6.0 H Calcium 8.6 Magnesium 2.2 Total Bilirubin AST ALT Alkaline Phosphatase Troponin I Total Protein Albumin Triglycerides 76 Cholesterol 134 LDL Cholesterol Direct 73 HDL Direct 35 Lipase TSH ASA Classification/Sedation ASA Classification/Sedation ASA Class: III Emergent: No Risks: Risks, benefits and alternatives explained and patient/family accepted plan for sedation. Patient re-evaluated immediately prior to sedation.
--- NOTE | 2024-07-14 09:36 | PC.NURSE ---
Pt to [facility] via stretcher for cardiac cath. Family at bedside. Heparin gtt stopped by [facility] RN.
--- NOTE | 2024-07-14 10:05 | PM.IMPN ---
Progress Note: A&P Assessment and Plan (1) Acute non-ST elevation myocardial infarction (NSTEMI): Code(s): I21.4 - Non-ST elevation (NSTEMI) myocardial infarction Status: Acute (2) Hypertension: Code(s): I10 - Essential (primary) hypertension Status: Acute (3) Hyperlipidemia: Code(s): E78.5 - Hyperlipidemia, unspecified Status: Acute (4) Prediabetes: Code(s): R73.03 - Prediabetes Status: Acute Plan The patient presented to the emergency department for evaluation of chest discomfort NSTEMI Patient has exertional angina for couple of days. Initial troponin was a bit elevated EKG shows subtle ST depressions. Received Aspirin 324 mg, continue aspirin 81 mg daily p.o. started on a heparin drip. Dr. Russ was consulted by the ED physician her input is greatly appreciated. Vital signs were reviewed and they are stable. Telemetry monitoring Cardiac catheterization a.m. today. 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 Patient will be transferred to [facility] for bypass surgery Chronic patient has no chest pain shortness breast Hyperlipidemia Continue Lipitor 80 mg daily p.o. Essential hypertension Continue losartan 50 mg daily p.o. Controlled at target Subjective Date/time seen: 07/14/24 10:05 Interval history: I saw and examined patient today. Patient denies chest pain, shortness breast abdomen pain, nausea vomiting dysuria. Patient afebrile, blood pressure stable. Labs reviewed Exam Narrative: GENERAL: Pleasant, in no acute distress. Well-nourished. - EYES: EOMI. Anicteric. - HENT: Moist mucous membranes. - LUNGS: Clear to auscultation bilaterally, no wheezing, rhonchi, or rales. - CARDIOVASCULAR: Regular rate and rhythm. No murmur. No JVD. - ABDOMEN: Soft, non-tender and non-distended. No palpable masses. - EXTREMITIES: No edema. Peripheral pulses 2+. Non-tender. - NEUROLOGIC: No focal neurological deficits. CN II-XII grossly intact. - PSYCHIATRIC: Awake, Alert and oriented x 3. Appropriate mood and affect. - SKIN: No rashes or lesions. Warm. - LYMPH: No cervical lymphadenopathy. Objective Data Vital Signs Vital Signs: Vital Signs - 24 hr 07/13/24 11:41 07/13/24 13:13 07/13/24 13:15 Temperature 97.6 F Pulse Rate 54 L 51 L 51 L Respiratory Rate 16 20 14 Blood Pressure 126/53 L 139/65 Pulse Oximetry 100 99 100 Oxygen Delivery Room Air 07/13/24 13:25 07/13/24 13:25 07/13/24 13:31 Temperature Pulse Rate 51 L 56 L Respiratory Rate 19 23 H Blood Pressure 139/65 Pulse Oximetry 100 100 Oxygen Delivery Room Air Room Air 07/13/24 13:45 07/13/24 13:46 07/13/24 14:00 Temperature Pulse Rate 50 L 48 L 49 L Respiratory Rate 10 L 17 21 H Blood Pressure 139/72 142/68 H Pulse Oximetry 100 100 100 Oxygen Delivery 07/13/24 14:01 07/13/24 14:15 07/13/24 14:16 Temperature Pulse Rate 50 L 52 L 50 L Respiratory Rate 19 14 17 Blood Pressure 139/75 Pulse Oximetry 99 100 100 Oxygen Delivery 07/13/24 14:30 07/13/24 14:31 07/13/24 14:51 Temperature Pulse Rate 50 L 51 L 51 L Respiratory Rate 18 19 12 Blood Pressure 135/68 Pulse Oximetry 97 100 Oxygen Delivery 07/13/24 15:00 07/13/24 15:01 07/13/24 15:21 Temperature Pulse Rate 52 L 53 L 54 L Respiratory Rate 14 18 18 Blood Pressure 138/71 Pulse Oximetry 98 99 100 Oxygen Delivery 07/13/24 15:30 07/13/24 15:31 07/13/24 15:45 Temperature Pulse Rate 51 L 55 L 54 L Respiratory Rate 19 22 H 18 Blood Pressure 137/75 Pulse Oximetry 100 100 97 Oxygen Delivery 07/13/24 15:46 07/13/24 16:00 07/13/24 16:01 Temperature Pulse Rate 54 L 54 L 51 L Respiratory Rate 18 20 17 Blood Pressure 124/61 107/60 Pulse Oximetry 97 Oxygen Delivery 07/13/24 16:15 07/13/24 16:16 07/13/24 16:39 Temperature Pulse Rate 49 L 50 L 53 L Respiratory Rate 11 L 13 16 Blood Pressure 135/71 Pulse Oximetry 100 99 99 Oxygen Delivery 07/13/24 16:45 07/13/24 16:46 07/13/24 16:47 Temperature Pulse Rate 54 L 54 L 53 L Respiratory Rate 18 13 13 Blood Pressure 140/67 Pulse Oximetry 98 100 100 Oxygen Delivery 07/13/24 17:02 07/13/24 17:15 07/13/24 17:30 Temperature Pulse Rate 53 L 56 L 60 Respiratory Rate 20 20 19 Blood Pressure Pulse Oximetry 100 99 98 Oxygen Delivery 07/13/24 17:31 07/13/24 17:45 07/13/24 18:00 Temperature Pulse Rate 58 L 53 L 63 Respiratory Rate 19 21 H 15 Blood Pressure 143/76 H Pulse Oximetry 98 100 98 Oxygen Delivery 07/13/24 18:06 07/13/24 18:15 07/13/24 18:16 Temperature Pulse Rate 58 L 59 L 61 Respiratory Rate 18 16 19 Blood Pressure 90/42 L 112/51 L Pulse Oximetry 100 99 99 Oxygen Delivery 07/13/24 18:30 07/13/24 18:31 07/13/24 18:32 Temperature Pulse Rate 56 L 57 L 59 L Respiratory Rate 18 18 18 Blood Pressure 105/51 L Pulse Oximetry 100 100 99 Oxygen Delivery 07/13/24 18:45 07/13/24 19:00 07/13/24 19:01 Temperature Pulse Rate 61 59 L 56 L Respiratory Rate 13 23 H 17 Blood Pressure 117/57 L Pulse Oximetry 98 98 Oxygen Delivery 07/13/24 19:15 07/13/24 19:30 07/13/24 19:31 Temperature Pulse Rate 58 L 55 L 56 L Respiratory Rate 15 14 19 Blood Pressure 118/55 L Pulse Oximetry 98 96 97 Oxygen Delivery 07/13/24 20:05 07/13/24 20:15 07/13/24 20:34 Temperature Pulse Rate 56 L 55 L 56 L Respiratory Rate 11 L 20 22 H Blood Pressure Pulse Oximetry 99 98 96 Oxygen Delivery 07/13/24 20:45 07/13/24 21:01 07/13/24 21:19 Temperature Pulse Rate 57 L 57 L 54 L Respiratory Rate 25 H 17 15 Blood Pressure Pulse Oximetry 95 98 Oxygen Delivery 07/13/24 22:00 07/13/24 22:00 07/13/24 22:06 Temperature 98.1 F Pulse Rate 52 L 52 L 54 L Respiratory Rate 18 18 Blood Pressure 118/63 Pulse Oximetry 100 100 Oxygen Delivery Room Air 07/14/24 00:00 07/14/24 00:30 07/14/24 02:00 Temperature Pulse Rate 53 L 54 L 55 L Respiratory Rate 18 Blood Pressure Pulse Oximetry 100 Oxygen Delivery Room Air 07/14/24 04:00 07/14/24 04:00 07/14/24 04:15 Temperature 98.2 F Pulse Rate 53 L 58 L 55 L Respiratory Rate 16 18 Blood Pressure 110/65 Pulse Oximetry 98 100 Oxygen Delivery Room Air 07/14/24 06:00 07/14/24 08:00 07/14/24 08:00 Temperature Pulse Rate 52 L 100 51 L Respiratory Rate 16 Blood Pressure Pulse Oximetry 94 Oxygen Delivery Room Air 07/14/24 08:11 Temperature 97.7 F Pulse Rate 100 Respiratory Rate 16 Blood Pressure 128/69 Pulse Oximetry 94 Oxygen Delivery Intake/Output Intake/Output: Intake & Output 07/11/24 07/12/24 07/13/24 07/14/24 23:59 23:59 23:59 23:59 Intake Total 67.5 168.6 Output Total 950 Balance -882.5 168.6 Meds/Results Medications: Active Medications Generic Name Dose Route Start Last Admin Trade Name Freq PRN Reason Stop Dose Admin Acetaminophen 650 mg 07/13/24 15:14 07/14/24 00:29 Acetaminophen 325 Mg Tablet PO 650 mg Q6H PRN Administration Mild Pain (1-3) or Fever Aspirin 81 mg 07/14/24 09:00 07/14/24 08:18 Aspirin 81 Mg Enteric Tablet PO 81 mg QAM VALARIE Administration Atorvastatin Calcium 80 mg 07/13/24 15:05 07/14/24 08:18 Atorvastatin 40 Mg Tablet PO 80 mg DAILY VALARIE Administration Atorvastatin Calcium 10 mg 07/13/24 23:20 07/14/24 00:25 Atorvastatin 10 Mg Tablet BY MOUTH 10 mg HS VALARIE Administration Famotidine 10 mg 07/13/24 23:18 Famotidine 10 Mg Tablet PO DAILY PRN reflux Heparin Sodium (Porcine) 4,000 units 07/13/24 12:54 07/14/24 03:40 Heparin Sodium 5,000 Units/Ml Vial IV PUSH 4,000 units PRN PRN Administration aPTT less than 55 seconds Heparin Sodium (Porcine) 3,000 units 07/13/24 12:54 Heparin Sodium 5,000 Units/Ml Vial IV PUSH PRN PRN aPTT 55 - 70 seconds Heparin Sodium/Dextrose 25,000 units in 250 mls @ 0 mls/hr 07/13/24 12:55 07/14/24 09:37 Heparin Sodium/D5w 100 Units/Ml IV CONT 0 units/hr .Q0M VALARIE 0 mls/hr Titration Protocol Losartan Potassium 50 mg 07/13/24 23:20 07/14/24 00:25 Losartan Potassium 50 Mg Tablet BY MOUTH 50 mg HS VALARIE Administration Melatonin 3 mg 07/13/24 23:20 07/14/24 00:25 Melatonin 3 Mg Tablet PO 3 mg HS VALARIE Administration Morphine Sulfate 2 mg 07/13/24 15:14 Morphine Sulfate (*Crx) 2 Mg/Ml Inj IV PUSH Q4H PRN Pain Rated 7-10 Paroxetine HCl 10 mg 07/13/24 23:20 07/14/24 00:25 Paroxetine 10 Mg Tablet BY MOUTH 10 mg HS VALARIE Administration Radiology Results: ITS Impressions Chest X-Ray 07/13/24 12:45 IMPRESSION: No acute cardiopulmonary pathology. Labs Labs: Laboratory Results - last 24 hr 07/13/24 07/13/24 07/13/24 11:56 14:39 16:12 WBC 5.3 6.3 RBC 3.93 L 3.95 L Hgb 12.9 L 13.2 L Hct 38.7 L 38.4 L MCV 98.5 97.2 MCH 32.8 33.4 MCHC 33.3 34.4 RDW 12.5 12.5 Plt Count 142 L 147 L MPV 10.2 10.4 Immature Gran % (Auto) 0.4 0.5 Neut % (Auto) 59.6 59.0 Lymph % (Auto) 26.2 27.5 Bowie % (Auto) 10.4 H 9.5 H Eos % (Auto) 3.0 3.0 Baso % (Auto) 0.4 0.5 Lymph # (Auto) 1.39 1.73 Bowie # (Auto) 0.6 0.6 Eos # (Auto) 0.2 0.2 Baso # (Auto) 0.0 0.0 Abs Immat Gran (auto) 0.02 0.03 Absolute Neuts (auto) 3.2 3.7 Absolute Nucleated RBC 0.000 0.000 Nucleated RBC % 0.0 0.0 % Immature Plt Fraction PT 15.0 H INR 1.2 APTT 24.4 Sodium 139 Potassium 4.2 Chloride 108 H Carbon Dioxide 30 Anion Gap 1 L BUN 21 H Creatinine 1.00 Estim Creat Clear Calc 56 Estimated GFR > 60 Glucose 105 Hemoglobin A1c 5.8 H Calcium 8.8 Magnesium Total Bilirubin 0.6 AST 33 ALT 23 Alkaline Phosphatase 64 Troponin I 0.239 H* 0.286 H* Total Protein 6.0 L Albumin 3.8 Triglycerides 62 Cholesterol 142 LDL Cholesterol Direct 85 HDL Direct 36 Lipase 97 TSH 1.700 07/13/24 07/13/24 07/13/24 17:48 19:52 19:52 WBC RBC Hgb Hct MCV MCH MCHC RDW Plt Count MPV Immature Gran % (Auto) Neut % (Auto) Lymph % (Auto) Bowie % (Auto) Eos % (Auto) Baso % (Auto) Lymph # (Auto) Bowie # (Auto) Eos # (Auto) Baso # (Auto) Abs Immat Gran (auto) Absolute Neuts (auto) Absolute Nucleated RBC Nucleated RBC % % Immature Plt Fraction PT 14.5 Cancelled INR 1.1 APTT Sodium Potassium Chloride Carbon Dioxide Anion Gap BUN Creatinine Estim Creat Clear Calc Estimated GFR Glucose Hemoglobin A1c Calcium Magnesium Total Bilirubin AST ALT Alkaline Phosphatase Troponin I 0.314 H* Total Protein Albumin Triglycerides Cholesterol LDL Cholesterol Direct HDL Direct Lipase TSH 07/13/24 07/14/24 19:52 02:58 WBC 6.0 RBC 3.82 L Hgb 12.7 L Hct 36.5 L MCV 95.5 MCH 33.2 MCHC 34.8 RDW 12.5 Plt Count 132 L MPV 10.3 Immature Gran % (Auto) 0.3 Neut % (Auto) 54.9 Lymph % (Auto) 33.1 Bowie % (Auto) 8.1 Eos % (Auto) 3.3 Baso % (Auto) 0.3 Lymph # (Auto) 1.99 Bowie # (Auto) 0.5 Eos # (Auto) 0.2 Baso # (Auto) 0.0 Abs Immat Gran (auto) 0.02 Absolute Neuts (auto) 3.3 Absolute Nucleated RBC 0.000 Nucleated RBC % 0.0 % Immature Plt Fraction 2.7 PT 15.1 H INR Cancelled 1.2 APTT 37.3 H 48.2 H Sodium 138 Potassium 3.9 Chloride 110 H Carbon Dioxide 25 Anion Gap 3 L BUN 20 Creatinine 0.90 Estim Creat Clear Calc 61 Estimated GFR > 60 Glucose 97 Hemoglobin A1c 6.0 H Calcium 8.6 Magnesium 2.2 Total Bilirubin AST ALT Alkaline Phosphatase Troponin I Total Protein Albumin Triglycerides 76 Cholesterol 134 LDL Cholesterol Direct 73 HDL Direct 35 Lipase TSH
--- NOTE | 2024-07-14 11:02 | P.PCNCC_ITS ---
Cardiac Cath Procedure Note Date of procedure:: 07/14/24 Performing physician:: Steffen Fernandes MD Indication:: NSTEMI Brief clinical history:: 78-year-old gentleman known to have hypertension copper, hyperlipidemia came in with new onset chest pain with troponins were fine to be elevated. He was brought for left heart catheterization after discussing the risks, benefits and alternatives of the procedure Procedure Procedure performed:: Coronary angiography Sedation/Medication given:: Versed 1 mg, fentanyl 25 mcg Access site:: Right radial Estimated blood loss:: 2 cc Procedure note:: Mr. Moon was brought to the liaison inspection laboratory assistant and informed consent was signed. Right radial artery was accessed and a sheath was placed subsequently left main and RCA ostial engage 6 Ivorian catheters and multiple images were taking in different projections. The radial access site was managed with a TR band for hemostasis. No immediate complications Findings:: Left main artery: Large caliber vessel which divides into left anterior descending, left circumflex and ramus intermedius arteries. Distal left main has 70-75% stenosis followed by at 30-40% stenosis at the distal left main bifurcation which involves the LAD, LCX and ramus branches. Left anterior descending artery: Large caliber transapical vessel which has 50- 60% stenosis in its proximal portion Ramus intermedius: Large caliber branching vessel which almost reaches the apex. The proximal third of the ramus has 50-60% stenosis Left circumflex artery: Large caliber vessel which has a [employer]IT[employer] in its proximal portion. It receive s Rentrop grade 3 collaterals from the right coronary artery. Right coronary artery: Large caliber dominant vessel which divides into PDA and PLV branches. No significant atherosclerotic disease seen angiographically in the RCA or its branches. RCA gives collaterals to the circumflex Conclusion:: 1. 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 Continue heparin. Heparin to be started 2 hours after the vascular band is removed and a radial access site is stable no heparin bolus to be given 2. Patient to be transferred the center of for CABG 3. Consider PFEIFFER to LAD, SVG to ramus and SVG to marginal 4. IABP not placed as the patient is stable hemodynamically with no chest pain. Will place 1 8 of the excepting surgeon wants a balloon pump to be placed 5. No P2Y12 6. Continue aspirin and statin 7. The family's discussion discussing on themselves with to be referred to. Will coordinate with the hospital they want be referred to
--- NOTE | 2024-07-14 14:39 | P.TS_ITS ---
Transfer Discharge Sum: Prov Provider Date of admission: 07/13/24 13:41 Primary care physician: Israel Castillo MD Admitting clinician: Vidal Silva MD Consults: 07/13/24 13:44 Consult to Physician Routine Comment: Consulting Provider: Jamie Russ Reason for consultation: nstemi Has provider been notified: Yes DS: Admitting Diagnosis Discharge Date 07/14/24 Admitting Diagnosis (1) Acute non-ST elevation myocardial infarction (NSTEMI): Code(s): I21.4 - Non-ST elevation (NSTEMI) myocardial infarction Status: Acute (2) Hypertension: Code(s): I10 - Essential (primary) hypertension Status: Acute (3) Hyperlipidemia: Code(s): E78.5 - Hyperlipidemia, unspecified Status: Acute (4) Prediabetes: Code(s): R73.03 - Prediabetes Status: Acute DS: Discharge Diagnosis Discharge Diagnosis (1) Acute non-ST elevation myocardial infarction (NSTEMI): Code(s): I21.4 - Non-ST elevation (NSTEMI) myocardial infarction Status: Acute (2) Hypertension: Code(s): I10 - Essential (primary) hypertension Status: Acute (3) Hyperlipidemia: Code(s): E78.5 - Hyperlipidemia, unspecified Status: Acute (4) Prediabetes: Code(s): R73.03 - Prediabetes Status: Acute Transfer Discharge Sum: Med Medications Active and Home Medications: Home Medications aspirin 81 mg tablet,delayed release 81 mg PO DAILY 07/29/19 [History Confirmed 07/13/24] Beet Root Complex 1 cap PO DAILY 09/03/21 [History Confirmed 07/13/24] multivitamin,dw-wdsz-[id number]-FA-min 1 tablet PO DAILY 09/03/21 [History Confirmed 07/13/24] vitamin B complex 1 cap PO DAILY 09/03/21 [History Confirmed 07/13/24] metformin 1,000 mg tablet 1,000 mg PO DAILY 10/13/23 [History Confirmed 07/13/24] paroxetine HCl 10 mg tablet See Rx Instructions .Route .COMPLEX #90 tabs 03/03/24 [Rx Confirmed 07/13/24] meloxicam 15 mg tablet 15 mg PO DAILY PRN arthritis #90 tabs 04/29/24 [Rx Confirmed 07/13/24] losartan 50 mg tablet See Rx Instructions .Route .COMPLEX #90 tabs 05/14/24 [Rx Confirmed 07/13/24] atorvastatin 10 mg tablet See Rx Instructions .Route .COMPLEX #90 tabs 06/07/24 [Rx Confirmed 07/13/24] ascorbic acid (vitamin C) 500 mg tablet (C-500) 500 mg PO .bedtime 07/13/24 [History Confirmed 07/13/24] calcium 333 mg-vit D3 133 unit-magnesium 133 mg-zinc 5 mg tablet (Cristóbal Mag Zinc Plus D3) 1 tablet PO DAILY 07/13/24 [History Confirmed 07/13/24] cholecalciferol (vitamin D3) 25 mcg (1,000 unit) capsule (Vitamin D3) 1,000 unit PO DAILY 07/13/24 [History Confirmed 07/13/24] coQ10 (ubiquinol) 100 mg capsule 100 mg PO .evening 07/13/24 [History Confirmed 07/13/24] famotidine 10 mg tablet (Acid Controller) 10 mg PO DAILY PRN reflux 07/13/24 [History Confirmed 07/13/24] melatonin 3 mg capsule 3 mg PO .bedtime 07/13/24 [History Confirmed 07/13/24] Active Medications Acetaminophen (Acetaminophen 325 Mg Tablet) 650 mg PO Q6H PRN PRN Reason: Mild Pain (1-3) or Fever Last Admin: 07/14/24 00:29 Dose: 650 mg Aspirin (Aspirin 81 Mg Enteric Tablet) [facility] [place] Last Admin: 07/14/24 08:18 Dose: 81 mg Atorvastatin Calcium (Atorvastatin 40 Mg Tablet) 80 mg PO DAILY [facility] Last Admin: 07/14/24 08:18 Dose: 80 mg Famotidine (Famotidine 10 Mg Tablet) 10 mg PO DAILY PRN PRN Reason: reflux Heparin Sodium (Porcine) (Heparin Sodium 5,000 Units/Ml Vial) 4,000 units IV PUSH PRN PRN PRN Reason: aPTT less than 55 seconds Last Admin: 07/14/24 03:40 Dose: 4,000 units Heparin Sodium (Porcine) (Heparin Sodium 5,000 Units/Ml Vial) 3,000 units IV PUSH PRN PRN PRN Reason: aPTT 55 - 70 seconds Heparin Sodium/Dextrose (Heparin Sodium/D5w 100 Units/Ml) 25,000 units in 250 mls @ 0 mls/hr IV CONT .Q0M [facility]; Protocol Last Titration: 07/14/24 09:37 Dose: 0 units/hr, 0 mls/hr Losartan Potassium (Losartan Potassium 50 Mg Tablet) 50 mg BY MOUTH [facility] Last Admin: 07/14/24 00:25 Dose: 50 mg Melatonin (Melatonin 3 Mg Tablet) 3 mg PO [facility] Last Admin: 07/14/24 00:25 Dose: 3 mg Morphine Sulfate (Morphine Sulfate (*Crx) 2 Mg/Ml Inj) 2 mg IV PUSH Q4H PRN PRN Reason: Pain Rated 7-10 Paroxetine HCl (Paroxetine 10 Mg Tablet) 10 mg BY MOUTH [facility] Last Admin: 07/14/24 00:25 Dose: 10 mg Transfer Discharge Sum: Hosp Hospital Course Hospital course: Luca Cleveland is a 78 year old male presented to the emergency department for evaluation of chest discomfort The following med issues have been addressed during hospitalization NSTEMI Patient has exertional angina for couple of days. Initial troponin was a bit elevated EKG shows subtle ST depressions. Received Aspirin 324 mg, continue aspirin 81 mg daily p.o. started on a heparin drip. Dr. Russ was consulted by the ED physician her input is greatly appreciated. Vital signs were reviewed and they are stable. Telemetry monitoring Cardiac catheterization a.m. today. 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 [facility] Header called [facility] for bypass surgery Chronic patient has no chest pain shortness breast Hyperlipidemia Continue Lipitor 80 mg daily p.o. Essential hypertension Continue losartan 50 mg daily p.o. Controlled at target Patient was transferred to [facility] for bypass surgery When patient was transferred, patient condition was stable Time Spent with Patient Time attestation: Total time spent providing and/or coordinating transfer services: Exam Narrative: GENERAL: Pleasant, in no acute distress. Well-nourished. - EYES: EOMI. Anicteric. - HENT: Moist mucous membranes. - LUNGS: Clear to auscultation bilateral ly, no wheezing, rhonchi, or rales. - CARDIOVASCULAR: Regular rate and rhyth m. No murmur. No JVD. - ABDOMEN: Soft, non-tender and non-dist ended. No palpable masses. - EXTREMITIES: No edema. Peripheral puls es 2+. Non-tender. - NEUROLOGIC: No focal neurological defi cits. CN II-XII grossly intact. - PSYCHIATRIC: Awake, Alert and oriented x 3. Appropriate mood and affect. - SKIN: No rashes or lesions. Warm. - LYMPH: No cervical lymphadenopathy. DS: Data Data Completed and Pending Labs on day of discharge: Labs from last 24 hours 07/14/24 07/13/24 07/13/24 02:58 19:52 19:52 WBC 6.0 RBC 3.82 L Hgb 12.7 L Hct 36.5 L MCV 95.5 MCH 33.2 MCHC 34.8 RDW 12.5 Plt Count 132 L MPV 10.3 Immature Gran % (Auto) 0.3 Neut % (Auto) 54.9 Lymph % (Auto) 33.1 Ocean % (Auto) 8.1 Eos % (Auto) 3.3 Baso % (Auto) 0.3 Lymph # (Auto) 1.99 Ocean # (Auto) 0.5 Eos # (Auto) 0.2 Baso # (Auto) 0.0 Abs Immat Gran (auto) 0.02 Absolute Neuts (auto) 3.3 Absolute Nucleated RBC 0.000 Nucleated RBC % 0.0 % Immature Plt Fraction 2.7 PT 15.1 H Cancelled INR 1.2 Cancelled 1.1 APTT 48.2 H 37.3 H Sodium 138 Potassium 3.9 Chloride 110 H Carbon Dioxide 25 Anion Gap 3 L BUN 20 Creatinine 0.90 Estim Creat Clear Calc 61 Estimated GFR > 60 Glucose 97 Hemoglobin A1c 6.0 H Calcium 8.6 Magnesium 2.2 Troponin I Triglycerides 76 Cholesterol 134 LDL Cholesterol Direct 73 HDL Direct 35 TSH 07/13/24 07/13/24 07/13/24 19:52 17:48 16:12 WBC RBC Hgb Hct MCV MCH MCHC RDW Plt Count MPV Immature Gran % (Auto) Neut % (Auto) Lymph % (Auto) Ocean % (Auto) Eos % (Auto) Baso % (Auto) Lymph # (Auto) [place] # (Auto) Eos # (Auto) Baso # (Auto) Abs Immat Gran (auto) Absolute Neuts (auto) Absolute Nucleated RBC Nucleated RBC % % Immature Plt Fraction PT 14.5 INR APTT Sodium Potassium Chloride Carbon Dioxide Anion Gap BUN Creatinine Estim Creat Clear Calc Estimated GFR Glucose Hemoglobin A1c 5.8 H Calcium Magnesium Troponin I 0.314 H* Triglycerides 62 Cholesterol 142 LDL Cholesterol Direct 85 HDL Direct 36 TSH 1.700 07/13/24 14:39 WBC 6.3 RBC 3.95 L Hgb 13.2 L Hct 38.4 L MCV 97.2 MCH 33.4 MCHC 34.4 RDW 12.5 Plt Count 147 L MPV 10.4 Immature Gran % (Auto) 0.5 Neut % (Auto) 59.0 Lymph % (Auto) 27.5 Ocean % (Auto) 9.5 H Eos % (Auto) 3.0 Baso % (Auto) 0.5 Lymph # (Auto) 1.73 [place] # (Auto) 0.6 Eos # (Auto) 0.2 Baso # (Auto) 0.0 Abs Immat Gran (auto) 0.03 Absolute Neuts (auto) 3.7 Absolute Nucleated RBC 0.000 Nucleated RBC % 0.0 % Immature Plt Fraction PT INR APTT Sodium Potassium Chloride Carbon Dioxide Anion Gap BUN Creatinine Estim Creat Clear Calc Estimated GFR Glucose Hemoglobin A1c Calcium Magnesium Troponin I 0.286 H* Triglycerides Cholesterol LDL Cholesterol Direct HDL Direct TSH
[2024-07-14] MEDS: HEPARIN SOD/D5W 100 UNITS/ML 25,000 UNITS/250 ML BAG 15 UNITS IV CONT (15:18)
--- NOTE | 2024-07-14 17:40 | PC.NURSE ---
Pt transfered to [facility] room 1264 via [facility]. Heparin gtt infusing and sent with pt. Family at bedside and aware of transfer. Belongings sent with pt. Report called to JOSE Corado @ [phone]
== END 2024-07-14 17:45 | disposition short-term general hospital (02) | DRG 282 ==
LOC: ANHED 13:15 → ANHIMU 14:03
PROVIDERS: Internal Medicine; Internal Medicine Interventional Cardiology; Physician Assistant; Admitting Provider Internal Medicine; Emergency Provider Emergency Medicine; PCP Family Medicine; Visit Provider Hospitalist
PROC: 4A023N7 Measurement of Cardiac Sampling and Pressure, Left Heart, Percutaneous Approach (ICD-10-PCS; CPT 93454; principal; 2024-07-14 08:55)
DX: I21.4 Non-ST elevation (NSTEMI) myocardial infarction (principal); I10 Essential (primary) hypertension; E78.5 Hyperlipidemia, unspecified; M17.11 Unilateral primary osteoarthritis, right knee; R73.03 Prediabetes; Z79.82 Long term (current) use of aspirin; Z86.73 Personal history of transient ischemic attack (TIA), and cerebral infarction without residual deficits
CPT/HCPCS: 36415; 71046; 80048; 80053; 80061; 83036; 83690; 83735; 84443; 84484; 85025; 85055; 85610; 85730; 93005; 93454; 96374; 99285; A9270; C1769; C1887; C1894; C8929; J1644; J2003; J2250; J2305; J3010; J7040; Q9957

== ENCOUNTER 2024-11-27 15:15 | Emergency (ER) | payer MEDICARE, SELFPAY ==
--- NOTE | ~2024-11-27 | XR_ITS ---
XR hand LT min 3V Ordering provider: Paola Jones APRN History: . L finger injury . Comparison: None. FINDINGS: BONES: No acute fracture or dislocation. JOINT SPACES: Narrowing of the distal interphalangeal joints. Osteoarthritic changes of the first car pometacarpal joint. Osteoarthritic changes of the first metacarpophalangeal joint. Subchondral cyst i n the distal proximal phalanx of the second finger. Otherwise, Well maintained. SOFT TISSUES: Unremarkable. IMPRESSION: No acute osseous abnormality left hand. Polyarticular osteoarthritic changes. Reviewed, dictated and finalized at location A.
--- OUTSIDE RECORDS SUMMARY | 2024-11-27 15:17 | XMS_ITS | Encounter Summary ---
Author Organization [facility] Healthcare Address [address] [place] [address] Care Team Providers Care Program Manager Slp Name Role Phone Israel Castillo MD Primary Care Provider [phone] Reason for Visit * Auth/Cert (Routine) Specialty Diagnoses / Procedures Referred By Mark diaz Referred To Contact Diagnoses Primary osteoarthritis of right knee Primary osteoarthritis of right knee [M17.11] Procedures CA ARTHRP KNEE CONDYLE&PLATEAU MEDIAL/LAT CMPRT CA ARTHRP KNE CONDYLE&PLATU MEDIAL&LAT COMPARTMENTS [place] [facility] [place] ARMANDOJ ORTHO CT/MRI ARTHROPLASTY KNEE - UNICOMPARTMENTAL - GATO ROBOTIC ARM RADHA ARTHROPLASTY TOTAL KNEE GATO ROBOTIC ARM Referral ID Status Reason Start Date Expiration Date Visits Re quested Visits Authorized [id number] 1 1 Encounter Details Date Type Department Care Team (Late st Contact Info) Description 09/30/2024 Hospital Encounter [facility] Operating Room [address] [place] [address] Kristopher Jordan MD [address] [facility] [place] [address] Social History Tobacco Use Types Packs/Day Years Used Date Smoking Tobacco: Never Smokeless Tobacco: Never Alcohol Use Standard Drinks/Week Comments Yes 0 (1 standard drink = 0.6 oz pur e alcohol) OASIS D0700: Social Isolation Answer Da te Recorded Frequency of experiencing loneliness or isolatio n Rarely 08/16/2024 OASIS A1250: Transportation Answer Date Recorded Lack of Transportation (Medical) No 08/16/2024 Lack of Transportation (Non-Medical) No 08/16/2024 Patient Unable or Declines to Respond No 08/16/2024 OASIS B1300: Health Literacy Answer Chaim e Recorded Frequency of needing help to read materials from doctor or pharmacy Never 08/16/2024 [facility] Utilities Answer Date Recorded In the past 12 months has th e electric, gas, oil, or water company threatened to shut off services in your home? No 2024 Social Connection and Isolat ion Panel [NHANES] Answer Date Recorded In a typical week, how many times do you talk on the phone with family, friends, or neighbors? More than three times a week 2024 How often do you get togethe r with friends or relatives? More than three times a week 2024 How often do you attend chur ch or gnosticism services? More than 4 times per year 2024 Do you belong to any clubs o r organizations such as pentecostal groups, unions, fraternal or athletic groups, or school groups? Yes 2024 How often do you attend meet ings of the clubs or organizations you belong to? More than 4 times per year 2024 Are you , , di vorced, , never , or living with a partner? 2024 AUDIT-C Answer Date Recorded Q1: How often do you have a drink containing alcohol? Never 07/16/2024 Q2: How many drinks containi ng alcohol do you have on a typical day when you are drinking? Patient does not drink Q3: How often do you have si x or more drinks on one occasion? Never 07/16/2024 Overall Financial Resource Strain (CARDIA) Answe r Date Recorded How hard is it for you to pa y for the very basics like food, housing, medical care, and heating? Not hard at all 2024 Hunger Vital Sign Answer Date Recorded Within the past 12 months, y ou worried that your food would run out before you got the money to buy more. Never true 07/15/20 24 Within the past 12 months, t he food you bought just didn't last and you didn't have money to get more. Never true 2024 PRAPARE - Transportation Answer Date Re corded In the past 12 months, has l ack of transportation kept you from medical appointments or from getting medications? No 07/04 In the past 12 months, has l ack of transportation kept you from meetings, work, or from getting things needed for daily living? No 2024 Housing Stability Vital Sign Answer Chaim e Recorded In the last 12 months, was t here a time when you were not able to pay the mortgage or rent on time? No 2024 In the past 12 months, how m any times have you moved where you were living? 1 2024 At any time in the past 12 m [facility], were you homeless or living in a senior living (including now)? No 2024 Personal Safety Answer Date Recorded Have you ever been in or are you currently in a harmful physical or emotional relationship or is someone making you feel afraid or unsafe? 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 Gender Identity Not on file Sexual Orientation Not on file documented as of this encounter Plan of Treatment Not on file documented as of this encounter Visit Diagnoses Diagnosis Osteoarthritis- Primary Osteoarthrosis, unspecified whether generalized or localized, unspecified site documented in this encounter Admitting Diagnoses Diagnosis Osteoarthritis Osteoarthrosis, unspecified whether generalized or localized, unspecified site documented in this encounter Care Teams Program Manager Slp Relationship Specialty Start Date End Date Israel Castillo MD PCP - General Family Medicine 07/17/22 documented as of this encounter
--- OUTSIDE RECORDS SUMMARY | 2024-11-27 15:17 | XMS_ITS | Encounter Summary ---
Author Organization [facility] Address [address] [place] [address] Phone Care Team Providers Care Case Worker Name Role Phone Israel Castillo MD Primary Care Provider [phone] Reason for Visit * Reason Onset Date Comments Call Back 11/26/2024 Encounter Details Date Type Department Care Team (Late st Contact Info) Description 11/26/2024 Telephone [facility] Orthopaedic Surgery [facility] Medical Office Building [address] [place] [address] Kristopher Jordan MD [address] [facility] [place] [address] Call Back Social History Tobacco Use Types Packs/Day Years [...] materials from doctor or pharmacy Never 08/16/2024 [facility] Utilities Answer Date Recorded In the [...] often do you attend chur ch or confucianism services? More than 4 times per year 2024 Do you belong to any clubs o r organizations such as yazdanism groups, unions, fraternal or athletic groups, or [...] any time in the past 12 m [facility], were you homeless or living in a skilled nursing (including now)? No 2024 Personal Safety Answer Date Recorded Have you ever been in or are you currently in a harmful physical or emotional relationship or is someone making you feel afraid or unsafe? 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 Lmovm that he will need to be cleared by his state wildlife officer before his ortho sx can be scheduled. And thathe may call back if he would like to discuss further; contact info provided. documented in this encounter Plan of Treatment Not on file documented as of this encounter Visit Diagnoses Not on filedocumented in this encounter Care Teams Case Worker Relationship Specialty Start Date End Date Israel Castillo MD PCP - General Family Medicine 07/17/22 documented as of this encounter
--- OUTSIDE RECORDS SUMMARY | 2024-11-27 15:18 | XMS_ITS | Clinical Summary ---
Author Organization [facility] [place] [address] Address [address] [place] [address] Care Team Providers Care Nuclear Medical Tech Name Role Phone Israel Castillo MD Primary Care Provider [phone] Allergies No known active allergies Medications multivitamin tablet tabletIndications: supplement take 1 by Oral route once 0 0 10/29/19 14 Active ascorbic acid (ascorbic acid with zainab hips) 500 mg tablet take 1 Tablet by Oral route 3 times every day 0 0 10/29/19 14 Active b complex vitamins (VITAMINS B COMPLEX) tabletIndications: supplement take 1 by Oral route once 0 0 10/29/19 14 Active aspirin (ASPIRIN LOW DOSE) 81 mg tabletIndications: prevention of thrombosis take 1 Tablet by oral route every day 0 0 10/29/19 14 Active PARoxetine (PAXIL) 10 mg tablet Take 1 tablet (10 mg total) by mouth daily Active metFORMIN XR (GLUCOPHAGE XR) 500 mg 24 hr tabletIndications: Prevention of Type 2 Diabetes Mellitus Take 1 tablet (500 mg total) by mouth daily At times he will take it twice a day 1000mg 07/16/20 23 Active acetaminophen 500 mg capsuleIndications :Pain Take 1 capsule (500 mg total) by mouth every 6 (six) hours as needed for pain 07/22/20 24 Active docusate sodium (DOK) 100 mg tabletIndications: constipation Take 1 tablet (100 mg total) by mouth 3 (three) times a day as needed for constipation Active melatonin tabletIndications: sleep Take 1 tablet (3 mg total) by mouth nightly as needed for sleep Active ALPRAZolam (XANAX) 0.5 mg tabletIndications: anxiety Take 1 tablet (0.5 mg total) by mouth 3 (three) times a day as needed for anxiety 15 tablet 08/17/19 25 Active metoprolol XL (TOPROL-XL) 25 mg extended release tablet Take 1 tablet (25 mg total) by mouth daily 90 tablet 2 09/14/19 25 026 Active atorvastatin (LIPITOR) 80 mg tablet Take 1 tablet (80 mg total) by mouth daily 30 tablet 1 11/12/19 25 Active clopidogreL (PLAVIX) 75 mg tabletIndications: Peripheral Arterial Thromboembolism Prevention Take 1 tablet (75 mg total) by mouth daily 30 tablet 1 11/12/19 25 Active atorvastatin (LIPITOR) 80 mg tablet Take 1 tablet (80 mg total) by mouth daily 30 tablet 1 09/17/19 25 025 Discontin ued(Reord er) clopidogreL (PLAVIX) 75 mg tabletIndications: Peripheral Arterial Thromboembolism Prevention Take 1 tablet (75 mg total) by mouth daily 30 tablet 1 09/17/19 25 025 Discontin ued(Reord er) Active Problems Problem Noted Date Diagnosed Date Coronary artery disease invo lving akiak coronary artery of [place]ki[place] heart without angina pectoris 07/14/2024 Assessment & Plan (10/11/2024 10:24 AM CDT): S/p 3V cabg doing well in recovery without typical angina -- continue asa, plavix, atorva 80, metop 25 XL -- plan to dc plavix after one year (Jul 2025) Osteoarthritis 04/15/2024 Arthralgia of right knee 06/06/2023 Non-rheumatic mitral regurgitation 01/21/2019 Assessment & Plan (10/11/2024 10:25 AM CDT): Mild-moderate MR, intervention not required during recent cabg Encounters Date Type Department Care Team Description 11/26/2024 Telephone [facility] Orthopaedic Surgery [address] [place] [address] Medical Office Building [address] [place] [phone] Kristopher Jordan MD Call Back 11/11/2024 Telephone [facility] Cardiology [address] [place] [address] Israel Haines MD Med Refill; echo order 10/11/2024 10:00 AM CDT Office Visit [facility] Cardiology [address] [place] [address] Steven Hernandez MD Coronary artery disease involving akiak coronary artery of akiak heart without angina pectoris (Primary Dx); Non-rheumatic mitral regurgitation 10/11/2024 Orders Only [facility] Cardiology [address] [place] [address] Steven Hernandez MD 10/10/2024 10:59 AM CDT - 10/10/2024 2:46 PM CDT Emergency [facility] Emergency Department [address] [place] [address] Near syncope (Primary Dx) Discharge Disposition: Discharge to home or self care 09/30/2024 Hospital Encounter [facility] Operating Room [address] [place] [address] Kristopher Jordan MD 09/17/2024 Telephone [facility] Cardiology [address] [place] [address] Israel Haines MD Med Refill 09/14/2024 3:00 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 Office Visit [facility] Cardiology at [address] [place] [address] Irsael Haines MD Hx of CABG (Primary Dx); Non-rheumatic mitral regurgitation 09/03/2024 Telephone Cardiovascular and Thoracic Surgery [address] [place] [address] Israel Tolentino MD Post-op from Last 3 Months Immunizations Immunization Administration Dates Next Due Influenza, Trivalent, High D ose, Split, Preservative Free, Intramuscular 04/16/2018 Tdap 12/10/2018 ZOSTER Recombinant 02/08/2019,10/05/2018 Surgical History Surgery Date Site/Laterality Comments CORONARY ARTERY BYPASS GRAFT 07/16/2024 CABGx3 Medical History Medical History Date Comments Hypertension Hypertension Hypercholesterolemia High choles terol Hx Other Medical Staph aureus se psis Coronary artery disease Family History Medical History Relation Name Comments Heart attack Brother 2 Myocardial Infa rction; Cause of : Myocardial Infarction Heart attack Mother Myocardial Infa rction; Cause of : Myocardial Infarction Relation Name Status Comments Brother 1 Brother 2 Mother (Age 91) Social History Tobacco Use Types Packs/Day Years Used Date Smoking Tobacco: Never Smokeless Tobacco: Never Tobacco Cessation:Counseling Given: Not Answered Alcohol Use Standard Drinks/Week Comments Yes 0 [...] materials from doctor or pharmacy Never 08/16/2024 [facility] Utilities Answer Date Recorded In the [...] often do you attend chur ch or jain services? More than 4 times per year 2024 Do you belong to any clubs o r organizations such as yazidism groups, unions, fraternal or athletic groups, or [...] any time in the past 12 [address] [place], were you homeless or living in a long-term (including now)? No 2024 Personal Safety Answer Date Recorded Have you ever been in or are you currently in a harmful physical or emotional relationship or is someone making you feel afraid or unsafe? 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 Gender Identity Not on file Sexual Orientation Not on file Obstetrics History Last Filed Vital Signs Vital Sign Reading Time Taken Comments Blood Pressure 122/78 10/11/2024 10:03 AM CDT Pulse 65 10/11/2024 10:03 AM CDT Temperature 36.3 C (97.4 F) 10/10/2024 10:50 AM CDT Respiratory Rate 16 10/10/2024 10:50 AM CDT Oxygen Saturation 95% 10/11/2024 10:03 AM CDT Inhaled Oxygen Concentration - - Weight 78.6 kg (173 lb 3.2 oz) 10/11/2024 10:03 AM CDT Height 172.7 cm (5' 8 ) 10/10/2024 10:50 AM CDT Body Mass Index 26.33 10/10/2024 10:50 AM CDT Plan of Treatment Health Maintenance Due Date Last Done Comments Albumin Creatinine Ratio, Urine 1945 Depression Screening 1945 Hepatitis C Screening 1945 Dilated Eye Exam 1945 Foot Exam 1945 Hepatitis B Screening 1965 Pneumococcal vaccine 65+ (1 of 2 - PCV) 1966 Well Visit 65+ 2012 Influenza Vaccine (Season Ended) 2025 04/16/20 18 Hemoglobin A1C 04/07/2025 10/05/2024, 2024 Fall Risk Assessment 07/21/2025 07/21/2024 Lipid Panel 10/05/2025 10/05/2024, 07/04, 07/17/2022, Additional history exists eGFR 10/10/2025 10/10/2024, 07/05, 07/22/2024, Additional history exists DTaP/Tdap/Td Vaccine (2 - Td or Tdap) 12/10/2028 12/10/2018 Zoster Vaccine Completed 02/08/2019, 10/05/2018 Procedures Procedure Name Priority Date/Time Associated Diagnosis Comments TROPONIN T HIGH-SENSITIVITY 2-HOUR Timed 10/10/2024 1:17 PM CDT XR CHEST PA LATERAL 2 VIEWS ED 10/10/2024 11:58 AM CDT EGFR STAT 10/10/2024 11:08 AM CDT DIFFERENTIAL AUTO STAT 10/10/2024 11: 08 AM CDT TROPONIN T HIGH-SENSITIVITY SERIES (BASELINE, 2HR, 4HR, 6HR) STAT 10/10/2024 11:08 AM CDT LIPASE STAT 10/10/2024 11:08 AM CDT COMPREHENSIVE METABOLIC PANEL STAT 10/10/2024 11:08 AM CDT CBC WITH AUTO DIFFERENTIAL STAT 10/10/2024 11:08 AM CDT ECG 12-LEAD STAT 10/10/2024 10:54 AM CDT COMPREHENSIVE METABOLIC PANEL Routine 10/05/2024 LIPID PANEL Routine 10/05/2024 CBC WITHOUT DIFFERENTIAL Routine 10/05/2024 HEMOGLOBIN A1C Routine 10/05/2024 from Last 3 Months Results * Troponin T high-sensitivity 2-hour (10/10/2024 1:17 PM CDT) Trop T hs 13 <=22 ng/L Comment: Interpretive Data For further hscTnT resources including the diagnostic algorithm and an aid in interpretation, copy and paste this link: https://nrl.testcatalog.org/show/hsTrop Current Interpretive Data last revised 2020. Trop T hs delta 0 ng/L [facility] Trop T hs interp Insignificant [facility] Blood 10/10/2024 1:17 PM CDT 10/10/2024 1:27 PM CDT us Isela VINSON LAB BLOOD ORDERABLES Final Re [facility] [address] Department [place] [address] * XR Chest PA Lateral 2 Views (10/10/2024 11:58 AM CDT) Anatomical Region Laterality Modality Body, Chest N/A Computed Radiogr aphy 10/10/2024 12:0 2 PM CDT Impressions 10/10/2024 12:02 PM CDT Median sternotomy. Eventration of the hemidiaphragm. No acute consolidation, pleural effusions, or pneumothorax. Median sternotomy. Stable heart size. Electronically signed by: Edin Escobedo M.D. Narrative 10/10/2024 12:02 PM CDT EXAMINATION: Two view chest radiograph INDICATION: near syncope COMPARISON: 08/17/2024 VIEWS: PA/Lateral Procedure Note Edin Escobedo MD - 10/10/2024 EXAMINATION: Two view chest radiograph INDICATION: near syncope COMPARISON: 08/17/2024 VIEWS: PA/Lateral IMPRESSION: Median sternotomy. Eventration of the hemidiaphragm. No acute consolidation, pleural effusions, or pneumothorax. Median sternotomy. Stable heart size. Electronically signed by: Edin Escobedo M.D. Isela VINSON IMG XR PROCEDURES Final Resul t * Troponin T high-sensitivity series (baseline, 2hr, 4hr, 6hr) (10/10/2024 11:08 AM CDT) Pathologist [facility] Trop T hs 13 <=22 ng/L Comment: Interpretive Data For further hscTnT resources including the diagnostic algorithm and an aid in interpretation, copy and paste this link: https://nrl.testcatalog.org/show/hsTrop Current Interpretive Data last revised 2020. Blood 10/10/2024 11:0 8 AM CDT 10/10/2024 11:31 AM CDT Isela VINSON LAB BLOOD ORDERABLES Final Re sult [facility] [address] Department of Laboratories [place], [place] [id number] * eGFR (10/10/2024 11:08 AM CDT) Pathologist [facility] eGFR 87 >=60 mL/min/1. 73 m2 Comment: Interpretive Data Reference Interval Normal >/= 90 mL/min/1.73m2 Mildly decreased* 60 - 89 mL/min/1.73m2 Mildly to moderately decreased 45 - 59 mL/min/1.73m2 Moderately to severely decreased 30 - 44 mL/min/1.73m2 Severely decreased 15 - 29 mL/min/1.73m2 Kidney Failure < 15 mL/min/1.73m2 *Relative to young adult level Estimated glomerular filtration rate is determined by the 2020 CKD-EPI equation recommended by the National Kidney Foundation (A Unifying Approach to GFR Estimation: Recommendations of the NKF-ASK Task Force on Reassessing the Inclusion of Race in Diagnosing Kidney Disease, JASN 2020). The CKD-EPI equation should not be used for patients with unstable renal function and has not been validated in children and those over 70. Current interpretive data was last reviewed 2021. Blood 10/10/2024 11:0 8 AM CDT 10/10/2024 11:31 AM CDT us Isela VINSON LAB BLOOD ORDERABLES Final Re sult [facility] [address] Department [place] [address] * Differential, auto (10/10/2024 11:08 AM CDT) [facility] Neutrophil abs 4.6 1.5 - 6.5 K/cumm Imm gran abs 0.0 0.0 - 0.1 K/cumm [facility] Lymphocyte abs 1.4 0.8 - 3.3 K/cumm [facility] Monocyte abs 0.8 0.2 - 0.8 K/cumm [facility] Eosinophil abs 0.2 0.0 - 0.5 K/cumm [facility] Basophil abs 0.0 0.0 - 0.1 K/cumm [facility] Neutrophil pct 65.5 % [facility] Comment: Interpretive Data Percent cell count reference ranges are not reported, since discordance with absolute values may lead to misinterpretation of CBC data. Current Interpretive Data was last revised on 2017. Imm gran pct 0.6 % [facility] Comment: Interpretive Data Percent cell count reference ranges are not reported, since discordance with absolute values may lead to misinterpretation of CBC data. Current Interpretive Data was last revised on 2017. Lymphocyte pct 19.9 % [facility] Comment: Interpretive Data Percent cell count reference ranges are not reported, since discordance with absolute values may lead to misinterpretation of CBC data. Current Interpretive Data was last revised on 2017. Monocyte pct 11.3 % [facility] Comment: Interpretive Data Percent cell count reference ranges are not reported, since discordance with absolute values may lead to misinterpretation of CBC data. Current Interpretive Data was last revised on 2017. Eosinophil pct 2.3 % [facility] Comment: Interpretive Data Percent cell count reference ranges are not reported, since discordance with absolute values may lead to misinterpretation of CBC data. Current Interpretive Data was last revised on 2017. Basophil pct 0.4 % [facility] Comment: Interpretive Data Percent cell count reference ranges are not reported, since discordance with absolute values may lead to misinterpretation of CBC data. Current Interpretive Data was last revised on 2017. Blood 10/10/2024 11:0 8 AM CDT 10/10/2024 11:31 AM CDT us Isela VINSON LAB BLOOD ORDERABLES Final Re sult [facility] [address] Department [place] [address] * CBC with auto differential (10/10/2024 11:08 AM CDT) WBC 7.0 3.8 - 9.9 K/cumm Hgb 14.6 13.0 - 17.5 g/dL [facility] Hct 43.8 38.9 - 50.3 % [facility] Plt 190 150 - 400 K/cumm [facility] MPV 10.8 9.1 - 12.3 fL [facility] RBC 4.62 4.30 - 5.80 M/cumm [facility] MCV 94.8 81.3 - 96.4 fL [facility] MCH 31.6 27.1 - 33.3 pg [facility] MCHC 33.3 32.3 - 35.7 g/dL [facility] RDW CV 13.2 11.1 - 14.9 % [facility] RDW SD 45.6 35.7 - 48.1 fL [facility] NRBC abs 0.00 0.00 - 0.01 K/cumm [facility] Blood 10/10/2024 11:0 8 AM CDT 10/10/2024 11:31 AM CDT Isela VINSON LAB BLOOD ORDERABLES Final Re sult Performing Organization Address City/[facility]/ZIP Co de Phone Number [facility] [address] [place] [address] * Lipase (10/10/2024 11:08 AM CDT) Pathologist [facility] Lipase 35 10 - 99 Units/L Blood 10/10/2024 11:0 8 AM CDT 10/10/2024 11:31 AM CDT Isela VINSON LAB BLOOD ORDERABLES Final Re sult [facility] [address] Department [place] [address] * Comprehensive metabolic panel (10/10/2024 11:08 AM CDT) Sodium 141 135 - 145 mmol/L Potassium, pl 4.1 3.3 - 4.9 mmol/L [facility] Chloride 104 97 - 110 mmol/L [facility] CO2 24 22 - 32 mmol/L [facility] Anion gap 13 2 - 15 mmol/L [facility] BUN 19 6 - 25 mg/dL [facility] Creatinine 0.91 0.80 - 1.30 mg/dL [facility] Glucose 120 70 - 199 mg/dL [facility] Comment: Interpretive Data Fasting glucose >/= 126 mg/dl is diagnostic for diabetes. Fasting is defined as no caloric intake for at least 8 hours. Fasting glucose between 100 mg/dl to 125 mg/dl is diagnostic of prediabetes. In a patient with classic symptoms of hyperglycemia or hyperglycemic crisis, a random glucose >/= 200 mg/dl is diagnostic for diabetes. In the absence of unequivocal hyperglycemia, results should be confirmed by repeat testing. The classification and Diagnosis of Diabetes Diabetes Care 202; 46: S19-S40. Current interpretive data was last revised 2022. Calcium 9.2 8.5 - 10.3 mg/dL [facility] Bilirubin, total 0.3 0.1 - 1.2 mg/dL [facility] Protein, pl 7.6 6.5 - 8.5 g/dL [facility] Albumin 4.4 3.5 - 5.0 g/dL [facility] Alk phos 95 40 - 130 Units/L [facility] ALT 27 7 - 55 Units/L [facility] AST 35 10 - 50 Units/L [facility] Comment:Slightly Hemolyzed S pecimen Blood 10/10/2024 11:0 8 AM CDT 10/10/2024 11:31 AM CDT us Isela VINSON LAB BLOOD ORDERABLES Final Re sult [facility] [address] Department [place] [address] * ECG 12 lead (10/10/2024 10:54 AM CDT) 10/10/2024 10:5 4 AM CDT Narrative [facility] - 10/10/2024 7:29 PM CDT Vent Rate: 68 bpm RR Interval: 879 msec MS Interval: 223 msec QRS Duration: 110 msec QT Interval: 402 msec QTC Interval: 419 msec P-R-T Harper: 52 - 7 - 72 degrees IMPRESSION: SINUS RHYTHM WITH FIRST DEGREE AV BLOCK WITH FREQUENT SUPRAVENTRICULAR PREMATURE COMPLEXES ABNORMAL ECG Electronically Signed By: Zachariah Troy MD [facility] Presley Orozco MD ECG ORDERABLES Final Result [facility] * (ABNORMAL) CBC without differential (10/05/2024) SCRIBED WBC 6.0 3.4 - 10.8 k/cumm [facility] SCRIBED RBC 4.86 4.14 - 5.80 m/cumm [facility] SCRIBED Hemoglobin 15.1 13.0 - 17.7 g/dL [facility] SCRIBED Hematocrit 45.0 37.5 - 51.0 % [facility] SCRIBED MCV 93 79 - 97 fl [facility] SCRIBED MCH 31.1 26.6 - 33.0 pg [facility] SCRIBED MCHC 33.6 31.5 - 35.7 g/dL [facility] SCRIBED RDW 13.2 11.6 - 15.4 g/dl [facility] SCRIBED Platelets 194 150 - 450 k/cumm [facility] Blood 10/05/2024 Historical Provider LAB BLOOD ORDERABLES Henna l Result Performing Organization Address [facility] Co de Phone Number [facility] * Hemoglobin A1c (10/05/2024) [facility] SCRIBED Hemoglobin A1c 6.1 5.7 - 6.4 % [facility] Blood 10/05/2024 Historical Provider LAB BLOOD ORDERABLES Henna l Result [facility] * Lipid panel (10/05/2024) Pathologist [facility] SCRIBED Cholesterol, Total 128 L - H [facility] SCRIBED HDL 31 L - H [facility] SCRIBED LDL 62 L - H [facility] SCRIBED Triglycerides 216 L - H [facility] Blood 10/05/2024 Historical Provider LAB BLOOD ORDERABLES Henna l Result [facility] * (ABNORMAL) Comprehensive metabolic panel (10/05/2024) SCRIBED Sodium 142 134 - 144 mmol/L [facility] SCRIBED Potassium 4.7 3.5 - 5.2 mmol/L [facility] SCRIBED Chloride 105 96 - 106 mmol/L [facility] SCRIBED Carbon Dioxide 24 20 - 29 mmol/L [facility] SCRIBED Urea Nitrogen (BUN) 13 8 - 27 mg/dl [facility] SCRIBED Creatinine 0.96 0.76 - 1.27 mg/dl [facility] SCRIBED Glucose 108(A) 70 - 99 mg/dl [facility] SCRIBED Calcium 9.6 8.6 - 10.2 mg/dl [facility] SCRIBED Bilirubin 0.4 0.0 - 1.2 mg/dl [facility] SCRIBED Plasma Protein 71(A) 6.0 - 8.5 g/dl [facility] SCRIBED Albumin 4.1 3.8 - 4.8 g/dl [facility] SCRIBED Alkaline Phosphatase 99 44 - 121 Units/L [facility] SCRIBED Alanine Transaminase (ALT) 26 0 - 44 Units/L [facility] SCRIBED Aspartate Transaminase (AST) 30 0 - 40 Units/L [facility] Blood 10/05/2024 Historical Provider LAB BLOOD ORDERABLES Henna l Result [facility] from Last 3 Months Insurance MEDICARE [facility] MEDICARE [facility] MEDICARE [employer] Advance Directives For more information, please contact: [phone] * Full Code (Latest Code Status on File) Date Activated Date Inactivated Comments 07/14/2024 7:17 PM 07/22/2024 7:40 PM Care Teams Nuclear Medical Tech Relationship Specialty Start Date End Date Israel Castillo MD PCP - General Family Medicine 07/17/22
--- OUTSIDE RECORDS SUMMARY | 2024-11-27 15:18 | XMS_ITS | Clinical Summary ---
Author Organization [facility] Address [address] [place] [address] Care Team Providers Care Co Pilot Name Role Phone Shorty Casarez MD Primary Care Provider [phone] Source Comments [facility],non-owned Affiliates and Associated Physician Practices is amultiple site organization consisting of ambulatory clinics and hospital sitesin [place], [place], [place] and [place]. This disclosure is being madepursuant to the Care Everywhere program and may not contain all information available regarding this patient. Last updated 18.[facility] Allergies No known active allergies Medications * Be aware that medications may not be up to date on this document. Alwaysverify current medications with the patient. ezetimibe (ZETIA) 10 MG tablet Take 10 mg by mouth once daily Active losartan (COZAAR) 50 MG tablet Take 50 mg by mouth once daily Active PARoxetine (PAXIL) 10 MG tablet Take 10 mg by mouth once daily Active meloxicam (MOBIC) 7.5 MG tabletIndicatio ns:Osteoarthrit is Take 1 tablet by mouth once daily Reasons: Joint Damage causing Pain and Loss of Function 60 tablet 2 03/11/2019 Active Glucosamine-Cho ndroitin 166.7-133.3 MG 10/28/2013 Acti ve atorvastatin (LIPITOR) 10 MG tablet 08/30/2019 Active ASPIRIN 81 PO 81 mg 10/28/2013 Activ e multivitamin (OPURITY) CHEW tablet take 1 by Oral route once 10/28/2013 Active [place] 3-6-9 Fatty Acids (OMEGA-3-6-9 PO) 10/28/2013 Active B COMPLEX VITAMINS PO take 1 by Oral route once 10/28/2013 Active ascorbic acid (VITAMIN C) 500 MG tablet 500 mg 10/28/2013 Active Active Problems Problem Noted Date Diagnosed Date Non-rheumatic mitral regurgitation 01/21/2019 Family history of premature CAD 01/21/2019 Social History Tobacco Use Types Packs/Day Years Used Date Smoking Tobacco: Never Smokeless Tobacco: Never Sex and Gender Information Value Date Recorded Sex Assigned at Not on file Legal Sex Male 8:51 AM CDT Gender Identity Not on file Sexual Orientation Not on file Last Filed Vital Signs Vital Sign Reading Time Taken Comments Blood Pressure - - Pulse - - Temperature - - Respiratory Rate - - Oxygen Saturation - - Inhaled Oxygen Concentration - - Weight 81.2 kg (179 lb) 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 Height 177.8 cm (5' 10 ) 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 Body Mass Index 25.68 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 Plan of Treatment Health Maintenance Due Date Last Done Comments MEDICARE AWV 12 MONTHS 1945 HEPATITIS C SCREENING 07/10/1965 DTAP/TDAP/TD VACCINES (1 - Tdap) 1966 PNEUMOCOCCAL VACCINE 50+ (1 of 1 - PCV) 1997 ZOSTER VACCINE (1 of 2) 1997 Respiratory Syncytial Virus (RSV) Vaccine Pt: or over 60 yrs (1 - 1-dose 75+ series) 2022 COVID-19 VACCINE ( - 2023-2 5 season) 2024 DEPRESSION SCREENING 08/04/2024 INFLUENZA VACCINE (Season Ended) 2025 HEPATITIS B VACCINE Aged Out No longe r eligible based on patient's age to complete this topic HIB VACCINE Aged Out No longer eligi ble based on patient's age to complete this topic HPV VACCINE Aged Out No longer eligi ble based on patient's age to complete this topic MENINGOCOCCAL (Group B) VACC INE SHARED DECISION-MAKING Aged Out No longer eligibl e based on patient's age to complete this topic MENINGOCOCCAL GROUPS A/C/Y/W VACCINE Aged Out No longer eligible b ased on patient's age to complete this topic Insurance MEDICARE MEDICARE [facility] Care Teams Co Pilot Relationship Specialty Start Date End Date Shorty Casarez MD [address] [place] [id number] PCP - General 04/08/18
--- OUTSIDE RECORDS SUMMARY | 2024-11-27 15:18 | XMS_ITS | Referral Summary ---
Author Organization [facility] [place] [address] [facility] [address] Address [address] [place] [address] Care Team Providers Care [employer] Worker Name Role Phone Israel Castillo MD Primary Care Provider [phone] Encounters Date Type Department Care Team Description 11/26/2024 Telephone [facility] Orthopaedic Surgery [address] [facility] Medical Office Building [address] [place] [address] Kristopher Jordan MD Call Back 11/11/2024 Telephone [facility] Cardiology [address] [place] [address] Israel Haines MD Med Refill; echo order 10/11/2024 Orders Only [facility] Cardiology [facility] [facility] [address] [place] [address] Steven Hernandez MD 10/11/2024 10:00 AM CDT Office Visit [facility] Medical [facility] Cardiology [facility] [facility] [address] [place] [address] Steven Hernandez MD Coronary artery disease involving [place] coronary artery of [place] heart without angina pectoris (Primary Dx); Non-rheumatic mitral regurgitation 10/10/2024 10:59 AM CDT - 10/10/2024 2:46 PM CDT Emergency [facility] Emergency Department [facility] [place] [address] Near syncope (Primary Dx) Discharge Disposition: Discharge to home or self care 09/30/2024 Hospital Encounter [facility] Operating Room [id number] [address] Kristopher Jordan MD 09/17/2024 Telephone [facility] Medical Group Cardiology [address] [facility] [address] [place] [address] Israel Haines MD Med Refill 09/14/2024 3:00 PM AUDIOLOGIST Office Visit [facility] Medical Group Cardiology at [address] [place] [address] Israel Haines MD Hx of CABG (Primary Dx); Non-rheumatic mitral regurgitation 09/03/2024 Telephone Cardiovascular and Thoracic Surgery [address] [place] [address] Israel Tolentino MD Post-op from Last 3 Months Allergies No known active allergies Medications multivitamin [...] Diagnosed Date Coronary artery disease invo lving [place] coronary artery of [place] heart without angina pectoris 07/14/2024 Assessment & [...] MR, intervention not required during recent cabg Immunizations Immunization Administration Dates Next Due Influenza, Trivalent, High D ose, Split, Preservative Free, Intramuscular 04/16/2018 Tdap 12/10/2018 ZOSTER Recombinant 02/08/2019,10/05/2018 Social History Tobacco Use Types Packs/Day Years [...] materials from doctor or pharmacy Never 08/16/2024 [facility] Utilities Answer Date Recorded In the past 12 months has th e [employer], gas, oil, or water company threatened to [...] often do you attend chur ch or amish services? More than 4 times per year 2024 Do you belong to any clubs o r organizations such as muslim groups, unions, fraternal or athletic groups, or [...] any time in the past 12 m [facility], were you homeless or living in a group home (including now)? No 2024 Personal Safety Answer Date Recorded Have you ever been in or are you currently in a harmful physical or emotional relationship or is someone making you feel afraid or unsafe? 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 Trop T hs delta 0 ng/L [facility] Trop T hs interp Insignificant [place] Blood 10/10/2024 1:17 PM CDT 10/10/2024 1:27 PM CDT Isela VINSON LAB BLOOD ORDERABLES Final Re sult [facility] [address] [place] [address] * XR Chest PA Lateral 2 Views [...] 2hr, 4hr, 6hr) (10/10/2024 11:08 AM CDT) Trop T hs 13 <=22 ng/L Comment: Interpretive Data For further hscTnT resources including the diagnostic algorithm and an aid in interpretation, copy and paste this link: https://nrl.testcatalog.org/show/hsTrop Current Interpretive Data last revised 2020. Blood 10/10/2024 11:0 8 AM CDT 10/10/2024 11:31 AM CDT Isela Bentley VINSON LAB BLOOD ORDERABLES Final Re sult Performing Organization Address City/[facility]/ZIP Co de Phone Number [facility] [address] [place] [address] * eGFR (10/10/2024 11:08 AM CDT) Pathologist [facility] eGFR 87 >=60 mL/min/1. 73 m2 Comment: [...] of Race in Diagnosing Kidney Disease, JASN 202). The CKD-EPI equation should not be used for patients with unstable renal function and has not been validated in children and those over 70. Current interpretive data was last reviewed 2021. Blood 10/10/2024 11:0 8 AM CDT 10/10/2024 11:31 AM CDT Isela VINSON LAB BLOOD ORDERABLES Final Re sult Performing Organization Address City/[facility]/ZIP Co de Phone Number [facility] [address] [place] [address] * Differential, auto (10/10/2024 11:08 AM CDT) Neutrophil abs 4.6 1.5 - 6.5 K/cumm Imm gran abs 0.0 0.0 - 0.1 K/cumm [facility] Lymphocyte abs 1.4 0.8 - 3.3 K/cumm [facility] Monocyte abs 0.8 0.2 - 0.8 K/cumm [facility] Eosinophil abs 0.2 0.0 - 0.5 K/cumm [facility] Basophil abs 0.0 0.0 - 0.1 K/cumm [facility] Neutrophil pct 65.5 % [facility] Comment: Interpretive Data Percent cell count reference ranges are not reported, since discordance with absolute values may lead to misinterpretation of CBC data. Current Interpretive Data was last revised on 2017. Imm gran pct 0.6 % [facility] Comment: Interpretive Data Percent cell count reference ranges are not reported, since discordance with absolute values may lead to misinterpretation of CBC data. Current Interpretive Data was last revised on 2017. Lymphocyte pct 19.9 % [facility] Comment: Interpretive Data Percent cell count reference ranges are not reported, since discordance with absolute values may lead to misinterpretation of CBC data. Current Interpretive Data was last revised on 2017. Monocyte pct 11.3 % [facility] Comment: Interpretive Data Percent cell count reference ranges are not reported, since discordance with absolute values may lead to misinterpretation of CBC data. Current Interpretive Data was last revised on 2017. Eosinophil pct 2.3 % [facility] Comment: Interpretive Data Percent cell count reference ranges are not reported, since discordance with absolute values may lead to misinterpretation of CBC data. Current Interpretive Data was last revised on 2017. Basophil pct 0.4 % [facility] Comment: Interpretive Data Percent cell count reference ranges are not reported, since discordance with absolute values may lead to misinterpretation of CBC data. Current Interpretive Data was last revised on 2017. Blood 10/10/2024 11:0 8 AM CDT 10/10/2024 11:31 AM CDT Isela VINSON LAB BLOOD ORDERABLES Final Re sult Performing Organization Address [facility] Co de Phone Number [facility] [address] [place] [address] * CBC with auto differential (10/10/2024 11:08 AM CDT) WBC 7.0 3.8 - 9.9 K/cumm Hgb 14.6 13.0 - 17.5 g/dL [facility] Hct 43.8 38.9 - 50.3 % [facility] Plt 190 150 - 400 K/cumm [facility] MPV 10.8 9.1 - 12.3 fL [facility] RBC 4.62 4.30 - 5.80 M/cumm [facility] MCV 94.8 81.3 - 96.4 fL [facility] MCH 31.6 27.1 - 33.3 pg [facility] MCHC 33.3 32.3 - 35.7 g/dL [facility] RDW CV 13.2 11.1 - 14.9 % [facility] RDW SD 45.6 35.7 - 48.1 fL [facility] NRBC abs 0.00 0.00 - 0.01 K/cumm [facility] Blood 10/10/2024 11:0 8 AM CDT 10/10/2024 11:31 AM CDT Isela VINSON LAB BLOOD ORDERABLES Final Re sult Performing Organization Address [facility]/ZIP Co de Phone Number [facility] [address] [place] [address] * Lipase (10/10/2024 11:08 AM CDT) Pathologist [facility] Lipase 35 10 - 99 Units/L Blood 10/10/2024 11:0 8 AM CDT 10/10/2024 11:31 AM CDT Isela VINSON LAB BLOOD ORDERABLES Final Re sult Performing Organization Address City/[facility]/ZIP Co de Phone Number [facility] [address] [place] [address] * Comprehensive metabolic panel (10/10/2024 11:08 AM CDT) Sodium 141 135 - 145 mmol/L Potassium, pl 4.1 3.3 - 4.9 mmol/L [facility] Chloride 104 97 - 110 mmol/L [facility] CO2 24 22 - 32 mmol/L [facility] Anion gap 13 2 - 15 mmol/L [facility] BUN 19 6 - 25 mg/dL [facility] Creatinine 0.91 0.80 - 1.30 mg/dL [facility] Glucose 120 70 - 199 mg/dL [facility] Comment: Interpretive Data Fasting glucose >/= 126 [...] classification and Diagnosis of Diabetes Diabetes Care 2021; 46: S19-S40. Current interpretive data was last revised 2022. Calcium 9.2 8.5 - 10.3 mg/dL [facility] Bilirubin, total 0.3 0.1 - 1.2 mg/dL [facility] Protein, pl 7.6 6.5 - 8.5 g/dL [facility] Albumin 4.4 3.5 - 5.0 g/dL [facility] Alk phos 95 40 - 130 Units/L [facility] ALT 27 7 - 55 Units/L [facility] AST 35 10 - 50 Units/L [facility] Comment:Slightly Hemolyzed S pecimen Blood 10/10/2024 11:0 8 AM CDT 10/10/2024 11:31 AM CDT Isela VINSON LAB BLOOD ORDERABLES Final Re sult [facility] [address] [place] [address] * ECG 12 lead (10/10/2024 10:54 AM CDT) 10/10/2024 10:5 4 AM CDT Narrative [facility] - 10/10/2024 7:29 PM CDT Vent Rate: 68 bpm RR Interval: 879 msec HI Interval: 223 msec QRS Duration: 110 msec QT Interval: 402 msec QTC Interval: 419 msec P-R-T [place]: 52 - 7 - 72 degrees IMPRESSION: SINUS RHYTHM WITH FIRST DEGREE AV BLOCK WITH FREQUENT SUPRAVENTRICULAR PREMATURE COMPLEXES ABNORMAL ECG Electronically Signed By: Zachariah Troy MD [facility] Presley Orozco MD ECG ORDERABLES Final Result Performing Organization Address City/[facility]/ZIP Co de Phone Number [facility] * (ABNORMAL) CBC without differential (10/05/2024) SCRIBED [...] 150 - 450 k/cumm [facility] Blood 10/05/2024 Erik Provider LAB BLOOD ORDERABLES Henna harris Result Performing Organization Address City/[facility]/ZIP Co de Phone Number [facility] * Hemoglobin A1c (10/05/2024) SCRIBED Hemoglobin A1c 6.1 5.7 - 6.4 % [facility] Blood 10/05/2024 Historical Provider MD LAB BLOOD ORDERABLES Henna l Result [facility] * Lipid panel (10/05/2024) SCRIBED Cholesterol, Total 128 L - H [facility] SCRIBED HDL 31 L - H [facility] SCRIBED LDL 62 L - H [facility] SCRIBED Triglycerides 216 L - H [facility] Blood 10/05/2024 Historical Provider MD LAB BLOOD ORDERABLES Henna l Result Performing Organization Address [facility] Co de Phone Number [facility] * (ABNORMAL) Comprehensive metabolic panel (10/05/2024) [...] 0 - 40 Units/L [facility] Blood 10/05/2024 us Historical Provider LAB BLOOD ORDERABLES Henna kimberly Result [facility] from Last 3 Months Insurance MEDICARE [facility] MEDICARE [facility] MEDICARE [facility] Advance Directives For more information, please contact: [phone] * Full Code (Latest Code Status on File) Date Activated Date Inactivated Comments 07/14/2024 7:17 PM 07/22/2024 7:40 PM Care Teams [employer] Work[employer] Relationship Specialty Start Date End Date Israel Castillo MD PCP - General Family Medicine 07/17/22
--- NOTE | 2024-11-27 15:30 | ED_ITS ---
HPI - Extremity Problem General Chief complaint: Wound/Laceration <Paola Jones APRN - Last Filed: 11/27/24 15:39> Stated complaint: cut finger on saw <Paola Jones APRN - Last Filed: 11/27/24 15:39> Time Seen by Provider: 11/27/24 15:25 <Paola Jones APRN - Last Filed: 11/27/24 15:39> Focused HPI: Patient is a 79-year-old male who presents to the ER with a left 2nd digit finger laceration. He reports he was using a hand saw and cut his finger. Patient reports he has a history of triple bypass and takes a blood thinner daily. He endorses full range of motion and sensation to all of his left hand digits. Patient is unsure when his last tetanus shot was administered. Bleeding is controlled at the time of examination. He endorses a history of diabetes, anxiety, and high blood pressure. GENERAL: Well-appearing, well-nourished, and in no acute distress. HEAD: Normocephalic, atraumatic. CHEST: Clear to auscultation. ?No respiratory distress. HEART: Regular rate and rhythm.? NEURO: ?Alert and oriented x3. Patient screened in triage and initial orders placed.? ?Additional care and disposition to be based upon?diagnostic testing and treatment. <Paola Jones APRN - Last Filed: 11/27/24 15:39> History of Present Illness HPI Narrative: Agree with the above HPI <Navneet Nagy MD - Last Filed: 11/27/24 18:49> Related Data Home medications: Home Medications ?Medication ?Instructions ?Recorded ?Confirmed ?Last Taken ?Type aspirin 81 mg tablet,delayed 81 mg PO DAILY 07/29/19 11/03/24 07/12/24 History release multivitamin,[id number]-min 1 tablet PO DAILY 09/03/21 11/03/24 07/12/24 History ascorbic acid (vitamin C) 500 mg 500 mg PO .bedtime 07/13/24 11/03/24 07/12/24 History tablet (C-500) famotidine 10 mg tablet (Acid 10 mg PO DAILY PRN reflux 07/13/24 11/03/24 07/12/24 History Controller) melatonin 3 mg capsule 3 mg PO .bedtime 07/13/24 11/03/24 07/12/24 History clopidogrel 75 mg tablet (Plavix) 75 mg PO DAILY 07/29/24 11/03/24 Unknown Histo ry docusate sodium 100 mg capsule 100 mg PO BID 07/29/24 11/03/24 Unknown History (Colace) metoprolol succinate 25 mg 12.5 mg PO BID 07/29/24 11/03/24 Unknown History tablet,extended release 24 hr acetaminophen 650 mg/20.3 mL oral 650 mg PO Q6H PRN 10/08/24 11/03/24 Unknown History solution atorvastatin 10 mg tablet 80 mg .Route .COMPLEX 10/08/24 11/03/24 Unknown History atorvastatin 80 mg tablet mg PO 10/08/24 11/03/24 Unknown History vitamin B complex 1 cap PO DAILY 10/08/24 11/03/24 Unknown History <Paola Jones APRN - Last Filed: 11/27/24 15:39> Allergies/Adverse reactions: Allergies Allergy/AdvReac Type Severity Reaction Status Date / Time lisinopril AdvReac Intermediate cough Verified 11/27/24 15:15 <Paola Jones APRN - Last Filed: 11/27/24 15:39> Review of Systems Review of Systems: All systems reviewed & are unremarkable except as noted in HPI and below <Navneet Nagy MD - Last Filed: 11/27/24 18:49> [facility] Past Medical History Medical History: Medical History Non-STEMI (non-ST elevated myocardial infarction) STEMI (ST elevation myocardial infarction) Mixed hyperlipidemia Prediabetes Hypertension Lacunar infarction Abnormal electrocardiogram during exercise stress test Osteoarthritis of right knee <Paola Jones APRN - Last Filed: 11/27/24 15:39> Surgical History Surgical History: Surgical History S/P CABG x 3 2023 History of meniscectomy of right knee <Paola Jones APRN - Last Filed: 11/27/24 15:39> Family History Family History: Family History Sibling Family history of sudden , Onset Age: 52 Coronary artery disease Family history of elevated blood lipids Father Coronary artery disease Sibling Coronary artery disease Family history of elevated blood lipids Diabetes mellitus Other Diabetes mellitus Other Hypertension <Paola Jones APRN - Last Filed: 11/27/24 15:39> Social History Social History: Social History Social History: Surrogated medical decision maker: Dagmar Cleveland, spouse. Code status: Full code. Smoking status: Never smoker Second hand tobacco smoke exposure: Yes Alcohol intake: current Drinks per week: 7 Substance use: never Substance use type: does not use Do You Feel Safe in your Home?: Yes Lack of Transportation: No Lack of Food: Never True Current Housing: I Have Housing Concerned About Future Housing: No Difficulty Paying Gas/Electric Bills: No Difficulty Paying for Meds: No Currently Unemployed: No Education: Master's Degree or Higher Difficulty w/ Childcare or Family Care: No Living arrangements: with family Additional living arrangements comments: Lives with in [place]. 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 Spiritual care concerns: No <Paola Jones, ABY - Last Filed: 11/27/24 15:39> Exam Narrative: APPEARANCE: Well appearing, no pain, no distress, well-nourished. HEAD: normocephalic, atraumatic. EYES: PERRLA/EOMI, conjunctivae clear. NOSE: Normal no drainage EARS:TMS clear with good light reflex. THROAT: Pharynx clear, no exudate. NECK: Supple. No adenopathy, no masses. RESPIRATORY: Airway patent, respirations nonlabored. Clear to auscultation bilaterally, no rales, rhonchi, wheezing. CARDIOVASCULAR: Regular rate and rhythm without murmurs rubs or gallops. ABDOMINAL: Soft, nontender, nondistended, normal bowel sounds MUSCULOSKELETAL: Normal range of motion of the affected finger, neurovascularly intact NEURO: Alert. Cranial nerves II through XII intact. Good gait. Good coordination SKIN: Laceration to left index finger <Navneet Nagy MD - Last Filed: 11/27/24 18:49> Course Vital Signs Vital signs: Vital Signs Temperature 97.9 F 11/27/24 15:34 Pulse Rate 63 11/27/24 15:34 Respiratory Rate 14 11/27/24 15:34 Blood Pressure 140/69 11/27/24 15:34 Pulse Oximetry 100 11/27/24 15:34 Oxygen Delivery Room Air 11/27/24 15:34 Temperature 97.9 F 11/27/24 15:34 Pulse Rate 63 11/27/24 15:34 Respiratory Rate 14 11/27/24 15:34 Blood Pressure 140/69 11/27/24 15:34 Pulse Oximetry 100 11/27/24 15:34 Oxygen Delivery Room Air 11/27/24 15:34 <Paola Jones APRN - Last Filed: 11/27/24 15:39> Vital Signs Temperature 97.9 F 11/27/24 15:34 Pulse Rate 63 11/27/24 15:34 Respiratory Rate 14 11/27/24 15:34 Blood Pressure 140/69 11/27/24 15:34 Pulse Oximetry 100 11/27/24 15:34 Oxygen Delivery Room Air 11/27/24 15:34 Temperature 97.9 F 11/27/24 15:34 Pulse Rate 63 11/27/24 15:34 Respiratory Rate 14 11/27/24 15:34 Blood Pressure 140/69 11/27/24 15:34 Pulse Oximetry 100 11/27/24 15:34 Oxygen Delivery Room Air 11/27/24 15:34 <Navneet Nagy MD - Last Filed: 11/27/24 18:49> Procedures Laceration Laceration 1: Time: 17:50 <Navneet Nagy MD - Last Filed: 11/27/24 18:49> Site: upper extremity <Navneet Nagy MD - Last Filed: 11/27/24 18:49> Side (If applicable): left <Navneet Nagy MD - Last Filed: 11/27/24 18:49> Size (cm): 4 <Navneet Nagy MD - Last Filed: 11/27/24 18:49> Description: flap and irregular <Navneet Nagy MD - Last Filed: 11/27/24 18:49> Depth: simple, single layer <Navneet Nagy MD - Last Filed: 11/27/24 18:49> Local Anesthetic: lidocaine 1% <Navneet Nagy MD - Last Filed: 11/27/24 18:49> Amount of anesthesia used (mL): 4 <Navneet Nagy MD - Last Filed: 11/27/24 18:49> Pre-repair: wound explored, irrigated, irrigated extensively and minor debridement <Navneet Nagy MD - Last Filed: 11/27/24 18:49> ====== Skin Level ======: Skin layer closed with: prolene <Navneet Nagy MD - Last Filed: 11/27/24 18:49> Size (cm): 4-0 <Navneet Nagy MD - Last Filed: 11/27/24 18:49> Number of sutures: 7 <Navneet Nagy MD - Last Filed: 11/27/24 18:49> Technique: simple, interrupted <Navneet Nagy MD - Last Filed: 11/27/24 18:49> ====== Subcutaneous Layer ======: ====== Muscle Layer ======: ====== Tendon Layer ======: MDM - Extremity (Nontraumatic) MDM Narrative Medical decision making narrative: Patient's tetanus was updated. Patient's laceration was repaired as described in the procedure note. Patient was provided Keflex for the laceration encouraged close follow-up with Plastic/Hand surgery. All questions concerns were addressed patient was well-appearing at time of discharge. <Navneet Nagy MD - Last Filed: 11/27/24 18:49> Differential Diagnosis Differential diagnosis: Likely other (Finger fracture, tendon injury, nerve injury, finger laceration) <Navneet Nagy MD - Last Filed: 11/27/24 18:49> Discharge Plan Discharge Clinical Impression: Finger laceration <Paola Jones APRN - Last Filed: 11/27/24 15:39> Patient Disposition: Home <Paola Jones APRN - Last Filed: 11/27/24 15:39> Condition: Stable <Paola Jones APRN - Last Filed: 11/27/24 15:39> Instructions: Antibiotic Form, Laceration (ED) <Paola Jones APRN - Last Filed: 11/27/24 15:39> Additional Instructions: Antibiotics as directed until completed. Sutures need to be removed in 7- 10 days. Have close follow-up with plastics/hand surgery. If you have any worsening symptoms then please call or return to the emergency department. <Paola Jones APRN - Last Filed: 11/27/24 15:39> Patient Language: [place] <Paola Jones APRN - Last Filed: 11/27/24 15:39> Prescriptions: New cephalexin 500 mg capsule 500 mg PO Q12H 7 Days Qty: 14 0RF No Action amoxicillin-pot clavulanate 875-125 mg tablet 1 tablet PO BID Qty: 20 0RF aspirin 81 mg tablet,delayed release (DR/EC) 81 mg PO DAILY Patient Comments: Pt takes at night atorvastatin 10 mg tablet 80 mg .ROUTE .COMPLEX Patient Comments: Pt take at night Rx Instructions: 80 mg; atorvastatin 80 mg tablet PO vitamin B complex Capsule 1 cap PO DAILY acetaminophen 650 mg/20.3 mL solution 650 mg PO Q6H PRN clopidogrel [Plavix] 75 mg tablet 75 mg PO DAILY metoprolol succinate 25 mg tablet extended release 24 hr 12.5 mg PO BID docusate sodium [Colace] 100 mg capsule 100 mg PO BID (DME) blood-glucose meter [Accu-Chek Guide Glucose Meter] Misc See Rx Instructions .Route Qty: 1 0RF Rx Instructions: As directed paroxetine HCl 10 mg tablet See Rx Instructions .ROUTE .COMPLEX Qty: 180 1RF Dose Instruction: TAKE 1 TABLET BY MOUTH DAILY Patient Comments: pt takes at nigh Rx Instructions: TAKE 1 TABLET BY MOUTH BID (DME) lancets [Accu-Chek Fastclix Lancet Drum] Misc See Rx Instructions .Route Qty: 100 0RF Rx Instructions: As directed BID and prn Multivitamin And Mineral Tablet 1 tablet PO DAILY melatonin 3 mg capsule 3 mg PO .bedtime famotidine [Acid Controller] 10 mg tablet 10 mg PO DAILY PRN (Reason: reflux) ascorbic acid (vitamin C) [C-500] 500 mg tablet 500 mg PO .bedtime meloxicam 15 mg tablet 15 mg PO DAILY PRN (Reason: arthritis) Qty: 90 1RF (DME) Accu-Chek Guide test strips Strip See Rx Instructions .Route Qty: 100 1RF Rx Instructions: As directed BID and prn alprazolam [Xanax] 0.25 mg tablet 0.25 mg PO TID PRN (Reason: anxiety) Qty: 30 1RF metformin 1,000 mg tablet 1,000 mg PO DAILY Qty: 90 1RF <Paola Jones APRN - Last Filed: 11/27/24 15:39> Follow-up/Referrals: Teofilo Martinez MD [Physician] - Israel Castillo MD [Primary Care Provider] - <Paola Jones APRN - Last Filed: 11/27/24 15:39>
[2024-11-27 15:34] VITALS: BP 140/69; PULSE 63; RESP 14; TEMP 36.6; O2SAT 100
[2024-11-27] MEDS: TETANUS,DIPHTHERIA,AC PERTUSSIS ADULT (0.5 ML) BOOSTRIX IM (17:15)
--- OUTSIDE RECORDS SUMMARY | 2024-11-27 17:43 | XMS_ITS | Encounter Summary ---
Author Organization [facility] Healthcare Address [address] [place] [address] Care Team Providers Care Grocery Stock Clerk Name Role Phone Israel Castillo MD Primary Care Provider [phone] Reason for Visit * Auth/Cert (Routine) Specialty Diagnoses / Procedures Referred By Mark diaz Referred To Contact Diagnoses Primary osteoarthritis of right knee Primary osteoarthritis of right knee [M17.11] Procedures FL ARTHRP KNEE CONDYLE&PLATEAU MEDIAL/LAT CMPRT FL ARTHRP KNE CONDYLE&PLATU MEDIAL&LAT COMPARTMENTS [place] [facility] ARMANDOJ ORTHO CT/MRI ARTHROPLASTY KNEE - UNICOMPARTMENTAL - GATO ROBOTIC ARM RADHA ARTHROPLASTY TOTAL KNEE GATO ROBOTIC ARM Referral ID Status Reason Start Date Expiration Date Visits Re quested Visits Authorized [id number] 1 1 Encounter Details Date Type Department Care Team (Late st Contact Info) Description 09/30/2024 Hospital Encounter [facility] Operating Room [address] [place] [address] Kristopher Jordan MD [address] [facility] [address] [place] [address] Social History Tobacco Use Types Packs/Day Years [...] materials from doctor or pharmacy Never 08/16/2024 [facility] Utilities Answer Date Recorded In the [...] often do you attend chur ch or scientology services? More than 4 times per year 2024 Do you belong to any clubs o r organizations such as protestant groups, unions, fraternal or athletic groups, or [...] any time in the past [address] [facility], were you homeless or living in a snf (including now)? No 2024 Personal Safety Answer Date Recorded Have you ever been in or are you currently in a harmful physical or emotional relationship or is someone making you feel afraid or unsafe? 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[employer] Gender Identity Not on file Sexual Orientation Not on file documented as of this encounter Plan of Treatment Not on file documented as of this encounter Visit Diagnoses Diagnosis Osteoarthritis- Primary Osteoarthrosis, unspecified whether generalized or localized, unspecified site documented in this encounter Admitting Diagnoses Diagnosis Osteoarthritis Osteoarthrosis, unspecified whether generalized or localized, unspecified site documented in this encounter Care Teams Grocery Stock Clerk Relationship Specialty Start Date End Date Israel Castillo MD PCP - General Family Medicine 07/17/22 documented as of this encounter
--- OUTSIDE RECORDS SUMMARY | 2024-11-27 17:43 | XMS_ITS | Clinical Summary ---
Author Organization [facility] [place] [address] Address [address] [place] [address] Care Team Providers Care Solid Plasterer Name Role Phone Israel Castillo MD Primary Care Provider [phone] Allergies No known active allergies Medications multivitamin [...] Diagnosed Date Coronary artery disease invo lving [place] coronary artery of [place] heart without angina pectoris 07/14/2024 Assessment & [...] Type Department Care Team Description 11/26/2024 Telephone [facility] Orthopaedic Surgery [address] [place] [address] Medical Office Building [address] [place] [address] Kristopher Jordan MD Call Back 11/11/2024 Telephone [facility] Cardiology [address] [place] [address] Israel Haines MD Med Refill; echo order 10/11/2024 10:00 AM CDT Office Visit [facility] Cardiology [address] [facility] [address] [place] [address] Steven Hernandez MD Coronary artery disease involving [place] coronary artery of [place] heart without angina pectoris (Primary Dx); Non-rheumatic mitral regurgitation 10/11/2024 Orders Only [facility] Cardiology [address] [facility] [address] [place] [address] Steven Hernandez MD 10/10/2024 10:59 AM CDT - 10/10/2024 2:46 PM CDT Emergency [facility] Emergency Department [address] [place] [address] Near syncope (Primary Dx) Discharge Disposition: Discharge to home or self care 09/30/2024 Hospital Encounter [facility] Operating Room [address] [place] [address] Kristopher Jordan MD 09/17/2024 Telephone [facility] Cardiology [address] [place] [address] Israel Haines MD Med Refill 09/14/2024 3:00 PM CUSTOMER SUPPLY CHAIN ANALYST Office Visit [facility] Cardiology at [address] [place] [address] Israel Haines MD Hx of CABG (Primary Dx); Non-rheumatic mitral regurgitation 09/03/2024 Telephone Cardiovascular and Thoracic Surgery [address] [facility] [address] [place] [address] Israel Tolentino MD Post-op from [...] materials from doctor or pharmacy Never 08/16/2024 [facility] Utilities Answer Date Recorded In the past [...] often do you attend chur ch or roman catholic services? More than 4 times per year 2024 Do you belong to any clubs o r organizations such as zoroastrianism groups, unions, fraternal or athletic groups, or [...] any time in the past 12 m [facility], were you homeless or living in a usp (including now)? No 2024 Personal Safety Answer Date Recorded Have you ever been in or are you currently in a harmful physical or emotional relationship or is someone making you feel afraid or unsafe? Denies 10/10/2024 Sex and Gender Information Value Date Recorded Sex Assigned at Not on file Legal Sex Male 6:03 AM CUSTOMER SUPPLY CHAIN ANALYST Gender Identity Not on file Sexual Orientation [...] HOSPITAL Trop T hs interp Insignificant [facility] Blood 10/10/2024 1:17 PM CDT 10/10/2024 1:27 PM CDT us Isela VINSON LAB BLOOD ORDERABLES Final Re sult [facility] [address] Department [place] [address] * XR Chest PA Lateral 2 [...] 4hr, 6hr) (10/10/2024 11:08 AM CDT) Pathologist [facility] Emergency Department Trop T hs 13 <=22 ng/L Comment: Interpretive Data For further hscTnT resources including the diagnostic algorithm and an aid in interpretation, copy and paste this link: https://nrl.testcatalog.org/show/hsTrop Current Interpretive Data last revised 2020. Blood 10/10/2024 11:0 8 AM CDT 10/10/2024 11:31 AM CDT Isela VINSON LAB BLOOD ORDERABLES Final Re sult [facility] [address] Department of Laboratories [place] [id number] * eGFR (10/10/2024 11:08 AM CDT) Pathologist [facility] Emergency Department eGFR 87 >=60 mL/min/1. 73 [...] VINSON LAB BLOOD ORDERABLES Final Re sult [facility] [address] Department [place] [address] * Differential, auto (10/10/2024 11:08 AM CDT) [facility] Neutrophil abs 4.6 1.5 - 6.5 K/cumm Imm gran abs 0.0 0.0 - 0.1 K/cumm [facility] Lymphocyte abs 1.4 0.8 - 3.3 K/cumm [facility] Monocyte abs 0.8 0.2 - 0.8 K/cumm [facility] Eosinophil abs 0.2 0.0 - 0.5 K/cumm [facility] Basophil abs 0.0 0.0 - 0.1 K/cumm [facility] Neutrophil pct 65.5 % [facility] Comment: Interpretive Data Percent cell count reference ranges are not reported, since discordance with absolute values may lead to misinterpretation of CBC data. Current Interpretive Data was last revised on 2017. Imm gran pct 0.6 % [facility] Comment: Interpretive Data Percent cell count reference ranges are not reported, since discordance with absolute values may lead to misinterpretation of CBC data. Current Interpretive Data was last revised on 2017. Lymphocyte pct 19.9 % [facility] Comment: Interpretive Data Percent cell count reference ranges are not reported, since discordance with absolute values may lead to misinterpretation of CBC data. Current Interpretive Data was last revised on 2017. Monocyte pct 11.3 % [facility] Comment: Interpretive Data Percent cell count reference ranges are not reported, since discordance with absolute values may lead to misinterpretation of CBC data. Current Interpretive Data was last revised on 2017. Eosinophil pct 2.3 % [facility] Comment: Interpretive Data Percent cell count reference ranges are not reported, since discordance with absolute values may lead to misinterpretation of CBC data. Current Interpretive Data was last revised on 2017. Basophil pct 0.4 % [facility] Comment: Interpretive Data Percent cell count reference ranges are not reported, since discordance with absolute values may lead to misinterpretation of CBC data. Current Interpretive Data was last revised on 2017. Blood 10/10/2024 11:0 8 AM CDT 10/10/2024 11:31 AM CDT us Isela VINSON LAB BLOOD ORDERABLES Final Re sult [facility] [address] Department [place] [address] * CBC with auto differential (10/10/2024 11:08 AM CDT) WBC 7.0 3.8 - 9.9 K/cumm Hgb 14.6 13.0 - 17.5 g/dL [facility] Hct 43.8 38.9 - 50.3 % [facility] Plt 190 150 - 400 K/cumm [facility] MPV 10.8 9.1 - 12.3 fL [facility] RBC 4.62 4.30 - 5.80 M/cumm [facility] MCV 94.8 81.3 - 96.4 fL [facility] MCH 31.6 27.1 - 33.3 pg [facility] MCHC 33.3 32.3 - 35.7 g/dL [facility] RDW CV 13.2 11.1 - 14.9 % [facility] RDW SD 45.6 35.7 - 48.1 fL [facility] NRBC abs 0.00 0.00 - 0.01 K/cumm [facility] Blood 10/10/2024 11:0 8 AM CDT 10/10/2024 11:31 AM CDT Isela VINSON LAB BLOOD ORDERABLES Final Re sult Performing Organization Address City/[facility]/ZIP Co de Phone Number [facility] [address] [place] [address] * Lipase (10/10/2024 11:08 AM CDT) Pathologist [facility] Emergency Department Lipase 35 10 - 99 Units/L Blood 10/10/2024 11:0 8 AM CDT 10/10/2024 11:31 AM CDT Isela VINSON LAB BLOOD ORDERABLES Final Re sult [facility] [address] [place] [address] * Comprehensive metabolic panel (10/10/2024 11:08 AM CDT) Sodium 141 135 - 145 mmol/L Potassium, pl 4.1 3.3 - 4.9 mmol/L [facility] Chloride 104 97 - 110 mmol/L [facility] CO2 24 22 - 32 mmol/L [facility] Anion gap 13 2 - 15 mmol/L [facility] BUN 19 6 - 25 mg/dL [facility] Creatinine 0.91 0.80 - 1.30 mg/dL [facility] Glucose 120 70 - 199 mg/dL [facility] Comment: Interpretive Data Fasting glucose >/= 126 [...] 2022. Calcium 9.2 8.5 - 10.3 mg/dL [facility] Bilirubin, total 0.3 0.1 - 1.2 mg/dL [facility] Protein, pl 7.6 6.5 - 8.5 g/dL [facility] Albumin 4.4 3.5 - 5.0 g/dL [facility] Alk phos 95 40 - 130 Units/L [facility] ALT 27 7 - 55 Units/L [facility] AST 35 10 - 50 Units/L [facility] Comment:Slightly Hemolyzed S pecimen Blood 10/10/2024 11:0 8 AM CDT 10/10/2024 11:31 AM CDT us Isela VINSON LAB BLOOD ORDERABLES Final Re sult [facility] [address] Department [place] [address] * ECG 12 lead (10/10/2024 10:54 AM CDT) 10/10/2024 10:5 4 AM CDT Narrative [facility] - 10/10/2024 7:29 PM CDT Vent Rate: 68 bpm RR Interval: 879 msec [place] Interval: 223 msec QRS Duration: 110 msec QT Interval: 402 msec QTC Interval: 419 msec P-R-T Holly: 52 - 7 - 72 degrees IMPRESSION: SINUS RHYTHM WITH FIRST DEGREE AV BLOCK WITH FREQUENT SUPRAVENTRICULAR PREMATURE COMPLEXES ABNORMAL ECG Electronically Signed By: Zachraiah Troy MD [facility] Presley Orozco MD ECG ORDERABLES Final Result [facility] * (ABNORMAL) CBC without differential (10/05/2024) SCRIBED [...] Henna l Result Performing Organization Address [facility] Co de Phone Number [facility] * Hemoglobin A1c (10/05/2024) [facility] SCRIBED Hemoglobin A1c 6.1 5.7 - 6.4 % [facility] Blood 10/05/2024 Historical Provider LAB BLOOD ORDERABLES Henna l Result [facility] * Lipid panel (10/05/2024) Pathologist [facility] Emergency Department SCRIBED Cholesterol, Total 128 L [...] [facility] from Last 3 Months Insurance MEDICARE [facility] MEDICARE [facility] MEDICARE [employer] Advance Directives For more information, please contact: [phone] * Full Code (Latest Code Status on File) Date Activated Date Inactivated Comments 07/14/2024 7:17 PM 07/22/2024 7:40 PM Care Teams Solid Plasterer Relationship Specialty Start Date End Date Israel Castillo MD PCP - General Family Medicine 07/17/22
--- OUTSIDE RECORDS SUMMARY | 2024-11-27 17:43 | XMS_ITS | Referral Summary ---
Author Organization [facility] [address] [facility] [address] [place] [address] Care Team Providers Care Sliver Handler Name Role Phone Israel Castillo MD Primary Care Provider [phone] Encounters Date Type Department Care Team Description 11/26/2024 Telephone [facility] Orthopaedic Surgery [address] [facility] Medical Office Building 4 [address] [place] [address] Kristopher Jordan MD Call Back 11/11/2024 Telephone [facility] Cardiology [address] [place] [address] Israel Haines MD Med Refill; echo order 10/11/2024 Orders Only [facility] Cardiology [facility] [facility] [address] [place] [address] Steven Hernandez MD 10/11/2024 10:00 AM CDT Office Visit [facility] Medical [facility] Cardiology [address] [facility] [address] [place] [address] Steven Hernandez MD Coronary artery disease involving [place] coronary artery of [place] heart without angina pectoris (Primary Dx); Non-rheumatic mitral regurgitation 10/10/2024 10:59 AM CDT - 10/10/2024 2:46 PM CDT Emergency [facility] Emergency Department [facility] [place] [address] Near syncope (Primary Dx) Discharge Disposition: Discharge to home or self care 09/30/2024 Hospital Encounter [facility] Operating Room [address] [address] Kristopher Jordan MD 09/17/2024 Telephone [facility] Medical Group Cardiology [address] [facility] [address] [place] [address] Israel Haines MD Med Refill 09/14/2024 3:00 PM 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 CAR SERVICE ATTENDANT Office Visit [facility] Medical Group Cardiology at [address] [place] [address] Israel Haines MD Hx of CABG (Primary Dx); Non-rheumatic mitral regurgitation 09/03/2024 Telephone Cardiovascular and Thoracic Surgery [address] [facility] [address] [place] [address] Israel Tolentino MD Post-op from [...] Diagnosed Date Coronary artery disease invo lving [place] coronary artery of [place] heart without angina pectoris 07/14/2024 Assessment & [...] materials from doctor or pharmacy Never 08/16/2024 [facility] Utilities Answer Date Recorded In the past 12 months has th e Ed[employer], gas, oil, or water company threatened to [...] often do you attend chur ch or hinduism services? More than 4 times per year 2024 Do you belong to any clubs o r organizations such as samaritan groups, unions, fraternal or athletic groups, or [...] any time in the past 12 m [facility], were you homeless or living in a intermediate (including now)? No 2024 Personal Safety Answer Date Recorded Have you ever been in or are you currently in a harmful physical or emotional relationship or is someone making you feel afraid or unsafe? 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 Trop T hs delta 0 ng/L [facility] Trop T hs interp Insignificant [facility] Blood 10/10/2024 1:17 PM CDT 10/10/2024 1:27 PM CDT Isela VINSON LAB BLOOD ORDERABLES Final Re sult [facility] [address] Department [place] [address] * XR Chest PA Lateral 2 Views [...] ORDERABLES Final Re sult Performing Organization Address City/[facility]/ZIP Co de Phone Number [facility] [address] [place] [address] * eGFR (10/10/2024 11:08 AM CDT) Pathologist [facility] eGFR 87 >=60 mL/min/1. 73 m2 Comment: [...] ORDERABLES Final Re sult Performing Organization Address City/[facility]/ZIP Co de Phone Number [facility] [address] Department [place] [address] * Differential, auto (10/10/2024 11:08 AM CDT) Neutrophil abs 4.6 1.5 - 6.5 K/cumm Imm gran abs 0.0 0.0 - 0.1 K/cumm [facility] Lymphocyte abs 1.4 0.8 - 3.3 K/cumm [facility] Monocyte abs 0.8 0.2 - 0.8 K/cumm [facility] Eosinophil abs 0.2 0.0 - 0.5 K/cumm [facility] Basophil abs 0.0 0.0 - 0.1 K/cumm [facility] Neutrophil pct 65.5 % [facility] Comment: Interpretive Data Percent cell count reference ranges are not reported, since discordance with absolute values may lead to misinterpretation of CBC data. Current Interpretive Data was last revised on 2017. Imm gran pct 0.6 % [facility] Comment: Interpretive Data Percent cell count reference ranges are not reported, since discordance with absolute values may lead to misinterpretation of CBC data. Current Interpretive Data was last revised on 2017. Lymphocyte pct 19.9 % [facility] Comment: Interpretive Data Percent cell count reference ranges are not reported, since discordance with absolute values may lead to misinterpretation of CBC data. Current Interpretive Data was last revised on 2017. Monocyte pct 11.3 % [facility] Comment: Interpretive Data Percent cell count reference ranges are not reported, since discordance with absolute values may lead to misinterpretation of CBC data. Current Interpretive Data was last revised on 2017. Eosinophil pct 2.3 % [facility] Comment: Interpretive Data Percent cell count reference ranges are not reported, since discordance with absolute values may lead to misinterpretation of CBC data. Current Interpretive Data was last revised on 2017. Basophil pct 0.4 % [facility] Comment: Interpretive Data Percent cell count reference ranges are not reported, since discordance with absolute values may lead to misinterpretation of CBC data. Current Interpretive Data was last revised on 2017. Blood 10/10/2024 11:0 8 AM CDT 10/10/2024 11:31 AM CDT Isela VINSON LAB BLOOD ORDERABLES Final Re sult Performing Organization Address [facility]/[place] Co de Phone Number [facility] [address] [place] [address] * CBC with auto differential (10/10/2024 11:08 AM CDT) WBC 7.0 3.8 - 9.9 K/cumm Hgb 14.6 13.0 - 17.5 g/dL [facility] Hct 43.8 38.9 - 50.3 % [facility] Plt 190 150 - 400 K/cumm [facility] MPV 10.8 9.1 - 12.3 fL [facility] RBC 4.62 4.30 - 5.80 M/cumm [facility] MCV 94.8 81.3 - 96.4 fL [facility] MCH 31.6 27.1 - 33.3 pg [facility] MCHC 33.3 32.3 - 35.7 g/dL [facility] RDW CV 13.2 11.1 - 14.9 % [facility] RDW SD 45.6 35.7 - 48.1 fL [facility] NRBC abs 0.00 0.00 - 0.01 K/cumm [facility] Blood 10/10/2024 11:0 8 AM CDT 10/10/2024 11:31 AM CDT Isela VINSON LAB BLOOD ORDERABLES Final Re sult Performing Organization Address [facility]/ZIP Co de Phone Number [facility] [address] [place] [address] * Lipase (10/10/2024 11:08 AM CDT) Pathologist [facility] Lipase 35 10 - 99 Units/L Blood 10/10/2024 11:0 8 AM CDT 10/10/2024 11:31 AM CDT Isela VINSON LAB BLOOD ORDERABLES Final Re sult Performing Organization Address City/[facility]/ZIP Co de Phone Number [facility] [address] Department [place] [address] * Comprehensive metabolic panel (10/10/2024 11:08 AM CDT) Sodium 141 135 - 145 mmol/L Potassium, pl 4.1 3.3 - 4.9 mmol/L [facility] Chloride 104 97 - 110 mmol/L [facility] CO2 24 22 - 32 mmol/L [facility] Anion gap 13 2 - 15 mmol/L [facility] BUN 19 6 - 25 mg/dL [facility] Creatinine 0.91 0.80 - 1.30 mg/dL [facility] Glucose 120 70 - 199 mg/dL [facility] Comment: Interpretive Data Fasting glucose >/= 126 [...] 2022. Calcium 9.2 8.5 - 10.3 mg/dL [facility] Bilirubin, total 0.3 0.1 - 1.2 mg/dL [facility] Protein, pl 7.6 6.5 - 8.5 g/dL [facility] Albumin 4.4 3.5 - 5.0 g/dL [facility] Alk phos 95 40 - 130 Units/L [facility] ALT 27 7 - 55 Units/L [facility] AST 35 10 - 50 Units/L [facility] Comment:Slightly Hemolyzed S pecimen Blood 10/10/2024 11:0 8 AM CDT 10/10/2024 11:31 AM CDT Isela VINSON LAB BLOOD ORDERABLES Final Re sult [facility] [address] Department [place] [address] * ECG 12 lead (10/10/2024 10:54 AM CDT) 10/10/2024 10:5 4 AM CDT Narrative [facility] - 10/10/2024 7:29 PM CDT Vent Rate: 68 bpm RR Interval: 879 msec NM Interval: 223 msec QRS Duration: 110 msec QT Interval: 402 msec QTC Interval: 419 msec P-R-T [place]: 52 - 7 - 72 degrees IMPRESSION: SINUS RHYTHM WITH FIRST DEGREE AV BLOCK WITH FREQUENT SUPRAVENTRICULAR PREMATURE COMPLEXES ABNORMAL ECG Electronically Signed By: Zachariah Troy MD [facility] Presley Orozco MD ECG ORDERABLES Final Result Performing Organization Address City/[facility]/ZIP Co de Phone Number [facility] * (ABNORMAL) CBC without differential (10/05/2024) SCRIBED [...] ORDERABLES Henna harris Result Performing Organization Address City/[facility]/ZIP Co de Phone Number [facility] * Hemoglobin [...] l Result Performing Organization Address [facility]/[place] Co de Phone Number [facility] * (ABNORMAL) [...] [facility] from Last 3 Months Insurance MEDICARE [facility] MEDICARE [facility] MEDICARE [facility] Advance Directives For more information, please contact: [phone] * Full Code (Latest Code Status on File) Date Activated Date Inactivated Comments 07/14/2024 7:17 PM 07/22/2024 7:40 PM Care Teams Sliver Handler Relationship Specialty Start Date End Date Israel Castillo MD PCP - General Family Medicine 07/17/22
--- OUTSIDE RECORDS SUMMARY | 2024-11-27 17:43 | XMS_ITS | Clinical Summary ---
Author Organization [facility] Address [address] [place] [address] Care Team Providers Care Wood Barrel Reconditioner Name Role Phone Shorty Casarez MD Primary Care Provider [phone] Source Comments [facility],non-owned Affiliates and Associated Physician Practices is amultiple site organization consisting of ambulatory clinics and hospital sitesin [place], [place] and [place]. This disclosure is being madepursuant to the Care Everywhere program and may not contain all information available regarding this patient. Last updated 18.[facility] Allergies No known active allergies Medications * [...] 1 by Oral route once 10/28/2013 Active [place] 3-6-9 Fatty Acids (OMEGA-3-6-9 PO) 10/28/2013 Active [...] 81.2 kg (179 lb) 08/11/2018 9:36 AM METHODS ANALYST Height 177.8 cm (5' 10 ) 08/11/2018 9:36 AM METHODS ANALYST Body Mass Index 25.68 08/11/2018 9:36 AM METHODS ANALYST Plan of Treatment Health Maintenance Due Date [...] to complete this topic Insurance MEDICARE [facility]ARE [facility] Care Teams Wood Barrel Reconditioner Relationship Specialty Start Date End Date Shorty Casarez MD [address] [place] [id number] PCP - General 04/08/18
--- OUTSIDE RECORDS SUMMARY | 2024-11-27 17:43 | XMS_ITS | Encounter Summary ---
Author Organization [facility] Address [address] [place] [address] Phone Care Team Providers Care Medical Housekeeper Name Role Phone Israel Castillo MD Primary Care Provider [phone] Reason for Visit * Reason Onset Date Comments Call Back 11/26/2024 Encounter Details Date Type Department Care Team (Late st Contact Info) Description 11/26/2024 Telephone [facility] Orthopaedic Surgery [facility] Medical Office Building [address] [place] [address] Kristopher Jordan MD [address] [facility] [place] [address] Call Back Social History Tobacco [...] materials from doctor or pharmacy Never 08/16/2024 [facility] Utilities Answer Date Recorded In the past [...] any clubs o r organizations such as synagogue groups, unions, fraternal or athletic groups, or [...] any time in the past 12 m [facility], were you homeless or living in a snf (including now)? No 2024 Personal Safety Answer Date Recorded Have you ever been in or are you currently in a harmful physical or emotional relationship or is someone making you feel afraid or unsafe? 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 And thathe may call back if he would like to discuss further; contact info provided. documented in this encounter Plan of Treatment Not on file documented as of this encounter Visit Diagnoses Not on filedocumented in this encounter Care Teams Medical Housekeeper Relationship Specialty Start Date End Date Israel Castillo MD PCP - General Family Medicine 07/17/22 documented as of this encounter
[2024-11-27] MEDS: CEPHALEXIN 500 MG CAPSULE PO (18:09)
== END 2024-11-27 18:21 | disposition home or self-care (01) ==
PROVIDERS: Emergency Provider Emergency Medicine; PCP Family Medicine
DX: S61.211A Laceration without foreign body of left index finger without damage to nail, initial encounter (principal); Z23 Encounter for immunization; I25.2 Old myocardial infarction; I10 Essential (primary) hypertension; E78.2 Mixed hyperlipidemia; R73.03 Prediabetes; M17.11 Unilateral primary osteoarthritis, right knee; Z95.1 Presence of aortocoronary bypass graft; Z77.22 Contact with and (suspected) exposure to environmental tobacco smoke (acute) (chronic); Z79.82 Long term (current) use of aspirin; Z79.899 Other long term (current) drug therapy; Z79.84 Long term (current) use of oral hypoglycemic drugs; Z79.02 Long term (current) use of antithrombotics/antiplatelets; W27.0XXA Contact with workbench tool, initial encounter
CPT/HCPCS: 12002; 73130; 90471; 90715; 99283; A9270

== ENCOUNTER 2024-12-15 11:15 | Outpatient (RCR) | payer MEDICARE, SELFPAY ==
[2024-08-17 16:10] VITALS: PULSE 72
== END 2024-12-15 23:59 | disposition home or self-care (01) ==
LOC: ANHCPREHAB 11:15
PROVIDERS: PCP Family Medicine; Visit Provider Specialist
DX: Z95.1 Presence of aortocoronary bypass graft (principal)
CPT/HCPCS: 93798

== ENCOUNTER 2025-01-19 11:15 | Outpatient (RCR) | payer MEDICARE, SELFPAY ==
[2024-12-16 00:03] VITALS: PULSE 72
== END 2025-01-19 11:30 | disposition home or self-care (01) ==
LOC: ANHCPREHAB 11:15
PROVIDERS: PCP Family Medicine; Visit Provider Specialist
DX: Z95.1 Presence of aortocoronary bypass graft (principal)
CPT/HCPCS: 93798